=== PATIENT | male | born 1960 | race Caucasian/White ===

== ENCOUNTER 2019-11-04 10:50 | Inpatient (IN) | payer BC ==
--- NOTE | 2019-11-04 11:10 | PDOC ---
History of Present Illness - General Chief Complaint: Pain Stated Complaint: SENT BY PCP (KIDNEY STONES) History Source: Patient Exam Limitations: No Limitations - History of Present Illness Initial Comments: 11/04/19 11:11 59yM w PMHx kidney stone presenting w 3d subjective fevers, diaphoresis, nausea/vomiting, intermittent moderate LUQ radiating down LLQ pain. Took tylenol, last 8am this morning w/o relief. Had 5mm L lower pole stone broken w lithotripsy by Dr Fuentes 3d ago. Denies cough, chest pain, SOB, dysuria, hematuria, constipation, ABD distension Past History - Medical History Allergies/Adverse Reactions: Allergies Allergy/AdvReac Type Severity Reaction Status Date / Time No Known Drug Allergies Allergy Verified 11/04/19 11:01 shrimp Allergy Verified 11/04/19 11:01 Home Medications: Ambulatory Orders Amlodipine Besylate 10 mg PO DAILY 10/14/19 Aspirin 81 mg PO DAILY 10/14/19 Tamsulosin HCl [Flomax] 0.4 mg PO DAILY 10/14/19 Mirabegron [Myrbetriq] 50 mg PO DAILY 11/04/19 COPD: No Disorders: Yes (KIDNEY STONES) HTN: Yes - Surgical History Appendectomy: Yes (1980) - Psycho-Social/Smoking History Smoking History: Never smoked Have you smoked in the past 12 months: No Information on smoking cessation initiated: No - Substance Abuse Hx (Audit-C & DAST Scrn) How often the patient has a drink containing alcohol: Never Score: In Men: 4 or > Positive; In Women: 3 or > Positive: 0 Screen Result (Pos requires Nsg. Audit-10AR): Negative In the last yr the pt used illegal drug/Rx for NonMed reason: No Score: Yes response is considered Positive: 0 Screen Result (Positive result requires Nsg. DAST-10): Negative Review of Systems - Review of Systems Constitutional: Yes: Fever. No: Chills HEENTM: No: Eye Pain, Nose Pain Respiratory: No: Cough, Shortness of Breath Cardiac (ROS): No: Chest Pain, Lightheadedness ABD/GI: Yes: Nausea, Vomiting. No: Constipated, Diarrhea : Yes: Flank Pain. No: Burning, Dysuria Musculoskeletal: No: Back Pain, Joint Pain Integumentary: No: Bruising, Dryness Neurological: No: Headache, Seizure Psychiatric: No: Anxiety, Depression Endocrine: No: Intolerance to Cold, Intolerance to Heat Hematologic/Lymphatic: No: Anemia, Blood Clots *Physical Exam - Vital Signs Last Vital Signs Temp Pulse Resp BP Pulse Ox 98.9 F 107 H 18 130/72 100 11/04/19 10:58 11/04/19 10:58 11/04/19 10:58 11/04/19 10:58 11/04/19 10:58 - Physical Exam General Appearance: Yes: Nourished, Appropriately Dressed, Moderate Distress HEENT: positive: EOMI, ADRIA, Normal Voice, Hearing Grossly Normal. negative: Scleral Icterus (R), Scleral Icterus (L) Respiratory/Chest: positive: Lungs Clear, Normal Breath Sounds. negative: Chest Tender, Respiratory Distress Cardiovascular: positive: Regular Rhythm, Regular Rate, S1, S2. negative: Edema, Murmur Gastrointestinal/Abdominal: positive: Normal Bowel Sounds, Tender (mild LUQ/LLQ/L flank), Flat, Soft Musculoskeletal: negative: CVA Tenderness (R), CVA Tenderness (L) Integumentary: positive: Normal Color, Dry, Warm Neurologic: positive: Fully Oriented, Alert, Normal Mood/Affect, Normal Respo nse, Responsive ED Treatment Course - LABORATORY CBC & Chemistry Diagram: 11/04/19 12:00 11/04/19 12:00 Medical Decision Making - Medical Decision Making 11/04/19 11:57 CT A/P - large L renal subcapsular hematoma 4cm width mainly posterior w perinephric fat strainding, tiny nonobustructing L renal stones, mild dilation of L ureter w/o obstructing stone, mild thickening of partial distended bladder wall CXR - central congestive changes, cardiomegaly bedside echo - no appreciable L hydronephrosis, small L pleural effusion w bronchograms WBC 16 w L shift, 1+ hematuria --- 59yM w PMHx kidney stone presenting w 3d subjective fevers, diaphoresis, nausea/vomiting, intermittent moderate LUQ radiating down LLQ pain. CT showed 4cm L renal subcapsular hematoma/ fat stranding/leukocytosis w L shift - infection? vs post-op complication. Normal BP, no PATIENCE. No sign of obstructing stone on CT. Low concern for SBO (not distended) vs UTI (neg) vs pancreatitis (lipase wnl) Given 1L NS, 8mg morphine, zofran, toradol, zosyn Contacted Dr Fuentes urology - advised hematoma unlikely complication of lithotripsy, will evaluate pt in hospital Admitted m/s for renal hematoma, fat stranding, leukocytosis Discharge - Discharge Information Problems reviewed: Yes Clinical Impression/Diagnosis: Abdominal pain Qualifiers: Abdominal location: left lower quadrant Qualified Code(s): R10.32 - Left lower quadrant pain Renal hematoma Qualifiers: Encounter type: initial encounter Laterality: left Qualified Code(s): S37.012A - Minor contusion of left kidney, initial encounter Condition: Improved - Follow up/Referral Referrals: Earl Fuentes MD [Staff Physician] - - Patient Discharge Instructions Patient Printed Discharge Instructions: DI for Abdominal Pain-Adult Additional Instructions: Your CT scan shows that you have a small blood collection around your left kidney without stones or infection Take 1000mg tylenol or 600mg ibuprofen every 6 hours if you have pain Take the prescribed Percocet if you have severe pain Drink lots of water Follow up with your urologist Dr Fuentes tomorrow - Post Discharge Activity
[2019-11-04] MEDS ORDERED: ONDANSETRON 4 MG/2 ML VIAL IVPUSH ONE (11:43)
[2019-11-04] MEDS ORDERED: SODIUM CHLORIDE 0.9% 500 ML INFUS.BAG IV ONE (11:43)
[2019-11-04] MEDS ORDERED: morphine CARPU-JECT 4 MG/1 ML DISP.SYRIN IVPUSH ONE ×2 (11:43→17:10)
[2019-11-04] MEDS ORDERED: morphine SULFATE 4 MG/ML VIAL ONE ×2 (12:00→17:25)
[2019-11-04 12:15] LABS: BASO % 0.2 % (0-2.0); EOS % 0.1 % (0-4.5); HEMATOCRIT 33.8 % (35.4-49); HEMOGLOBIN 11.5 GM/dL (11.7-16.9); LYMPH % 4.6 % (8-40); MCH 29.8 pg (25.7-33.7); MCHC 34.1 g/dl (32.0-35.9); MEAN CELL VOLUME 87.2 fl (80-96); MEAN PLT VOLUME 9.1 fl (7.5-11.1); MONO % 6.9 % (3.8-10.2); NEUT % 88.2 % (42.8-82.8); PLATELET COUNT 185 K/MM3 (134-434); RBC 3.88 M/mm3 (4.00-5.60); RDW 13.6 % (11.9-15.9); WHITE BLOOD COUNT 16.1 K/mm3 (4.0-10.0)
[2019-11-04] MEDS ORDERED: KETOROLAC TROMETHAMINE 30 MG/1 ML VIAL IVPUSH ONE (12:15)
--- NOTE | 2019-11-04 12:19 | PDOC ---
Documentation entered by Serenity Nichole SCRIBE, acting as scribe for Orlando Gillette MD. Orlando Gillette MD: This documentation has been prepared by the zaidaibeDionisio Lincy, SCRIBE, under my direction and personally reviewed by me in its entirety. I confirm that the documentation accurately reflects all work, treatment, procedures, and medical decision making performed by me. Attending Attestation - Resident Resident Name: LindsaySarbjit - ED Attending Attestation I have performed the following: I have examined & evaluated the patient, The case was reviewed & discussed with the resident, I agree w/resident's findings & plan, Exceptions are as noted - HPI HPI: 11/04/19 12:10 The patient is a 59-year-old male with past medical history significant for htn, bph, Kidney stones, s/p lithotripsy (3 days ago w/ Dr. Fuentes) who presents to the emergency department with 3 days of subjective fever, chills, nausea / nbnb vomiting and left upper quadrant abdominal pain. The patient reports taking Tylenol for the symptoms, without relief. The patient reports following up with Dr. Fuentes 3 days ago. Denies cough, sore throat, chest pain, shortness of breath. Denies dysuria, or hematuria. - Physicial Exam PE: 11/04/19 12:17 GENERAL: The patient is awake, alert, and fully oriented, Nontoxic - in no acute distress. HEAD: Normocephalic, atraumatic. EYES: extraocular movements intact, sclera anicteric, conjunctiva clear. LUNGS: Breath sounds equal, clear to auscultation bilaterally. No wheezes, no rhonchi, no rales. HEART: Regular rate and rhythm, normal S1 and S2 without murmur, rub or gallop. ABDOMEN: Soft, right LLQ tenderness, No guarding, no rebound. No CVA tenderness EXTREMITIES: Normal range of motion, no edema. - Medical Decision Making 11/04/19 12:05 59y M hx of kidney stones sp lithotrypsy 3 days ago presents with subjective fevers, L flank pain without associated cp, dysuria. I suspect the patient may be passing his stones, will rule out UTI Will obtain CT to evaluate rule out Connor versus obstruction Fluids and analgesia for sx releief 11/04/19 14:[address] noted for a subcapsular hematoma of the left kidney with stranding which I suspect is the cause of his pain, will discuss with urology Blood work noted for a leukocytosis UA is not suggestive of UTI will give abx no hx of trauma/falls 11/04/19 16:56 due to persistent pain, will admit pt for further mangaement of his hematoma Discharge - Discharge Information Problems reviewed: Yes Clinical Impression/Diagnosis: Abdominal pain Qualifiers: Abdominal location: left lower quadrant Qualified Code(s): R10.32 - Left lower quadrant pain Renal hematoma Qualifiers: Encounter type: initial encounter Laterality: left Qualified Code(s): S37.012A - Minor contusion of left kidney, initial encounter Condition: Improved - Follow up/Referral - Patient Discharge Instructions - Post Discharge Activity
[2019-11-04 12:20] LABS: EPI CELLS 3 /uL (0-25.1); HYALINE CASTS 1 /uL (0-3.1); PH,URINE 6.5 (5.0-8.0); URINE APPEARANCE CLEAR; URINE BACTERIA 8 /uL (0-1359); URINE BILIRUBIN NEGATIVE (NEGATIVE); URINE COLOR YELLOW; URINE GLUCOSE (UA) NEGATIVE (NEGATIVE); URINE KETONE NEGATIVE (NEGATIVE); URINE LEUK ESTERASE TRACE (NEGATIVE); URINE NITRITE NEGATIVE (NEGATIVE); URINE PROTEIN TRACE (NEGATIVE); URINE RBC 55 /uL (0-23.9); URINE WBC 6 /uL (0-25.8)
[2019-11-04] MEDS ORDERED: KETOROLAC TROMETHAMINE 30 MG/1 ML VIAL ONE (12:50)
[2019-11-04 12:53] LABS: ALBUMIN 3.7 g/dl (3.4-5.0); BILIRUBIN,TOTAL 0.7 mg/dL (0.2-1); BLOOD UREA NITROGEN 16.4 mg/dL (7-18); CALCIUM 8.6 mg/dL (8.5-10.1); CREATININE 1.3 mg/dL (0.55-1.3); POTASSIUM 4.1 mmol/L (3.5-5.1)
[2019-11-04] MEDS ORDERED: PIPERACILLIN/TAZOB 4.5 GM 4.5 GM in DEXTROSE 5%-WATER 100 ML IVPB ONE (16:49)
[2019-11-04] MEDS ORDERED: PIPERACILLIN/TAZOB 4.5 GM 4.5 GM/100 ML BAG IVPB ONE (17:25)
[2019-11-04] MEDS ORDERED: ONDANSETRON 4 MG/2 ML VIAL IVPUSH PRN (18:21)
--- NOTE | 2019-11-04 18:30 | HP ---
CHIEF COMPLAINT: L flank/groin pain; vomiting PCP: HISTORY OF PRESENT ILLNESS: 59 y/0 male with PMH of Htn. kidney stones (s/p lithotripsy 3 days ago) presents to the ED with complaints of nausea/vomiting, fevers and left sided flank radiating into the groin pain. patient was found to have a L lower pole renal stone and underwent a lithotripsy 3 days ago- patient states since friday night he has been having immense pain (7-11/17), nausea/vomiting and fevers in addition to some pain on urination so he came to the ED. of note this is patients first time ever having kidney stones and he has no family history of stones. he denies any sick contacts, recent travel or changes in bowel habits ER course was notable for: (1)afebrile; HR 107 (2)wbc 16,1 (w/ left shift) Hgb 11.5 Cr 1.3 UA 1+ blood 55 RBC trace leuk esterase (3)CT ab/pelvis shows L renal subcapsualr hematoma with stranding of perinepric fat and some free fluid (4) given IVF, zosyn, toradol Recent Travel: denies PAST MEDICAL HISTORY: see above PAST SURGICAL HISTORY: appenix removed; Lithotripsy Social History: Smoking: Alcohol: Drugs: Allergies No Known Drug Allergies Allergy (Verified 11/04/19 11:01) shrimp Allergy (Verified 11/04/19 11:01) HOME MEDICATIONS: Home Medications Medication Instructions Recorded Amlodipine Besylate 10 mg PO DAILY 10/14/19 Aspirin 81 mg PO DAILY 10/14/19 Tamsulosin HCl [Flomax] 0.4 mg PO DAILY 10/14/19 Mirabegron [Myrbetriq] 50 mg PO DAILY 11/04/19 REVIEW OF SYSTEMS CONSTITUTIONAL: Absent: fever, chills, diaphoresis, generalized weakness, malaise, loss of appetite, weight change HEENT: Absent: rhinorrhea, nasal congestion, throat pain, throat swelling, difficulty swallowing, mouth swelling, ear pain, eye pain, visual changes CARDIOVASCULAR: Absent: chest pain, syncope, palpitations, irregular heart rate, lightheadedness, peripheral edema RESPIRATORY: Absent: cough, shortness of breath, dyspnea with exertion, orthopnea, wheezing, stridor, hemoptysis GASTROINTESTINAL: Absent: abdominal pain, abdominal distension, nausea, vomiting, diarrhea, constipation, melena, hematochezia GENITOURINARY: Present: dysuria, flank pain, groin pain Absent: , frequency, urgency, hesitancy, hematuria, , genital pain MUSCULOSKELETAL: Absent: myalgia, arthralgia, joint swelling, back pain, neck pain SKIN: Absent: rash, itching, pallor HEMATOLOGIC/IMMUNOLOGIC: Absent: easy bleeding, easy bruising, lymphadenopathy, frequent infections ENDOCRINE: Absent: unexplained weight gain, unexplained weight loss, heat intolerance, cold intolerance NEUROLOGIC: Absent: headache, focal weakness or paresthesias, dizziness, unsteady gait, seizure, mental status changes, bladder or bowel incontinence PSYCHIATRIC: Absent: anxiety, depression, suicidal or homicidal ideation, hallucinations. PHYSICAL EXAMINATION Vital Signs - 24 hr 11/04/19 10:58 Temperature 98.9 F Pulse Rate 107 H Respiratory 18 Rate Blood Pressure 130/72 O2 Sat by Pulse 100 Oximetry (%) GENERAL: Awake, alert, and fully oriented, in no acute distress. EYES: PEERLA: EOMI; no scleral icterus NECK: no JVD; no lymphadenopathy LUNGS: CTA B/l no rales, rhonchi or wheezing HEART: Regular rate and rhythm, normal S1 and S2 without murmur, rub or gallop. ABDOMEN: Soft, + L side/groin pain + guarding + BS in all 4 quadrants MUSCULOSKELETAL: NO CVA tenderness present EXTREMITIES: warm; well-perfused no clubbing/cyanosis or edema PSYCHIATRIC: Cooperative. Good eye contact. Appropriate mood and affect. SKIN: Warm, dry, normal turgor, no rashes or lesions noted, normal capillary refill. Laboratory Results - last 24 hr 11/04/19 11/04/19 11/04/19 12:00 12:00 12:00 WBC 16.1 H RBC 3.88 L Hgb 11.5 L Hct 33.8 L MCV 87.2 MCH 29.8 MCHC 34.1 RDW 13.6 Plt Count 185 MPV 9.1 Absolute Neuts (auto) 14.2 H Neutrophils % 88.2 H Lymphocytes % 4.6 L Monocytes % 6.9 Eosinophils % 0.1 Basophils % 0.2 Nucleated RBC % 0 Sodium 139 Potassium 4.1 Chloride 104 Carbon Dioxide 25 Anion Gap 10 BUN 16.4 Creatinine 1.3 Est GFR (CKD-EPI)AfAm 68.25 Est GFR (CKD-EPI)NonAf 58.89 Random Glucose 100 Calcium 8.6 Total Bilirubin 0.7 AST 15 ALT 24 Alkaline Phosphatase 45 Total Protein 7.0 Albumin 3.7 Lipase 120 Urine Color Yellow Urine Appearance Clear Urine pH 6.5 Ur Specific [place] 1.020 Urine Protein Trace Urine Glucose (UA) Negative Urine Ketones Negative Urine Blood 1+ H Urine Nitrite Negative Urine Bilirubin Negative Urine Urobilinogen 2.0 Ur Leukocyte Esterase Trace Urine WBC (Auto) 6 Urine RBC (Auto) 55 Urine Casts (Auto) 1 U Epithel Cells (Auto) 3 Urine Bacteria (Auto) 8 ASSESSMENT/PLAN: 59 y/0 male with PMH of Htn. kidney stones (s/p lithotripsy 3 days ago) presents to the ED with complaints of nausea/vomiting, fevers and left sided flank radiating into the groin pain found to have a L subcapsular hematoma on CT scan #Left Subcapsular hematoma CT scan shows L subcapsualr hemaotma w/ perinpehric stranding and free fluid -Dr Anthony Peters consulted -IV fluids -will cover broadly w/ vanc and zosyn -ID consult -nephro consult -zofran PRN for nausea -morphine PRN for pain -f/u blood and urine cx #HTN c/w amlodipine 10mg daily f/e/n NS @75 monitor electrolytes regular diet dvt ppx: scds in light of hematoma for now dispo: med-surg Family Medical History Family History: As Documented Family Hx Cancer: Grandmother (paternal), Father Visit type - Emergency Visit Emergency Visit: Yes Care time: The patient presented to the Emergency Department on the above date and was hospitalized for further evaluation of their emergent condition. - New Patient This patient is new to me today: Yes Date on this admission: 11/04/19 - Critical Care Critical Care patient: No ATTENDING PHYSICIAN STATEMENT I saw and evaluated the patient. I reviewed the resident's note and discussed the case with the resident. I agree with the resident's findings and plan as documented. SUBJECTIVE: OBJECTIVE: ASSESSMENT AND PLAN:
--- NOTE | 2019-11-04 18:36 | PN ---
Teaching Attending Note Name of Resident: Jimena Mcneil ATTENDING PHYSICIAN STATEMENT I saw and evaluated the patient. I reviewed the resident's note and discussed the case with the resident. I agree with the resident's findings and plan as documented. SUBJECTIVE: pt seen and examined OBJECTIVE: Last Vital Signs Temp Pulse Resp BP Pulse Ox 98.9 F 107 H 18 130/72 100 11/04/19 10:58 11/04/19 10:58 11/04/19 10:58 11/04/19 10:58 11/04/19 10:58 GENERAL: Awake, alert, and fully oriented, in no acute distress. HEAD: Normal with no signs of trauma. EYES: Pupils equal, round and reactive to light, sclera anicteric, conjunctiva clear. LUNGS: Breath sounds equal, clear to auscultation bilaterally. No wheezes, and no crackles. No accessory muscle use. HEART: Regular rate and rhythm, normal S1 and S2 ABDOMEN: guarded, tenderness on LUQ and lt lumbar area, with rebound, BS+ MUSCULOSKELETAL: Normal range of motion at all joints. No bony deformities or tenderness. No CVA tenderness. UPPER EXTREMITIES: 2+ pulses, warm, well-perfused. No cyanosis. No clubbing. No peripheral edema. LOWER EXTREMITIES: 2+ pulses, warm, well-perfused. No calf tenderness. No peripheral edema. NEUROLOGICAL: Cranial nerves II-XII intact. Normal speech. CBCD WBC 16.1 K/mm3 (4.0-10.0) H 11/04/19 12:00 RBC 3.88 M/mm3 (4.00-5.60) L 11/04/19 12:00 Hgb 11.5 GM/dL (11.7-16.9) L 11/04/19 12:00 Hct 33.8 % (35.4-49) L 11/04/19 12:00 MCV 87.2 fl (80-96) 11/04/19 12:00 MCHC 34.1 g/dl (32.0-35.9) 11/04/19 12:00 RDW 13.6 % (11.9-15.9) 11/04/19 12:00 Plt Count 185 K/MM3 (134-434) 11/04/19 12:00 MPV 9.1 fl (7.5-11.1) 11/04/19 12:00 CMP Sodium 139 mmol/L (136-145) 11/04/19 12:00 Potassium 4.1 mmol/L (3.5-5.1) 11/04/19 12:00 Chloride 104 mmol/L (98-107) 11/04/19 12:00 Carbon Dioxide 25 mmol/L (21-32) 11/04/19 12:00 Anion Gap 10 MMOL/L (8-16) 11/04/19 12:00 BUN 16.4 mg/dL (7-18) 11/04/19 12:00 Creatinine 1.3 mg/dL (0.55-1.3) 11/04/19 12:00 Calcium 8.6 mg/dL (8.5-10.1) 11/04/19 12:00 Total Bilirubin 0.7 mg/dL (0.2-1) 11/04/19 12:00 AST 15 U/L (15-37) 11/04/19 12:00 ALT 24 U/L (13-61) 11/04/19 12:00 Alkaline Phosphatase 45 U/L (45-117) 11/04/19 12:00 Total Protein 7.0 g/dl (6.4-8.2) 11/04/19 12:00 Albumin 3.7 g/dl (3.4-5.0) 11/04/19 12:00 ASSESSMENT AND PLAN: 59 year-old man with Mhx of htn, bph, Kidney stones, s/p lithotripsy (3 days ago w/ Dr. Fuentes) who presents to the emergency department with 3 days of subjective fever, chills, nausea / nbnb vomiting and left upper quadrant abdominal pain. # Lt Renal subcapsular hematoma, sepsis leukocytosis, tachycardia, meet sepsis criteria recent lithotripsy, pt improved after procedure, but started to have abdominal pain, N&V over last 2 days that got worse. CT scan lt renal subcapsular hematoma with stranding, non obstructing stones. Rt mid/distal ureter dilatation IV hydration, antiemtics, Zosyn+vancomycin trend H&H Urology consult Nephrology consult ID consult Anemia HTN BPH DVT prophylaxis
[2019-11-04] MEDS: VANCOMYCIN HCL 1,250 MG in DEXTROSE 5%-WATER - 250 ML IVPB SCH (19:51)
[2019-11-04] MEDS: SODIUM CHLORIDE 1,000 ML IV SCH (19:51)
[2019-11-05] MEDS ORDERED: ACETAMINOPHEN 325 MG TABLET (FP) PO ONE (00:32)
[2019-11-05] MEDS ORDERED: PIPERACILLIN/TAZOBACTAM 3.375 GM VIAL IVPB ONE ×3 (00:51→16:34)
[2019-11-05] MEDS ORDERED: DEXTROSE 5%-WATER - 50 ML IVPB ONE ×3 (00:51→16:34)
[2019-11-05] MEDS: MORPHINE SULFATE 2 MG/ML VIAL IVPUSH PRN ×2 (01:13→10:24)
[2019-11-05] MEDS: PIPERACILLIN/TAZOB 3.375 GM 3.375 GM in DEXTROSE 5%-WATER - 50 ML IVPB SCH ×2 (01:35→10:24)
[2019-11-05] MEDS ORDERED: PIPERACILLIN/TAZOB 3.375 GM 3.375 GM in DEXTROSE 5%-WATER - 50 ML IVPB SCH ×2 (02:00→18:00)
[2019-11-05] MEDS: SODIUM CHLORIDE 1,000 ML IV SCH (06:44)
[2019-11-05] MEDS: VANCOMYCIN HCL 1,250 MG in DEXTROSE 5%-WATER - 250 ML IVPB SCH ×2 (06:45→11:04)
--- NOTE | 2019-11-05 08:08 | CON.GU ---
Consult Consult Specialty:: urology - History of Present Illness Chief Complaint: subcapsular hematoma s/p left ESWL History of Present Illness: Patient is a 59 year old male s/p Left extracorporeal shockwave lithotripsy on Friday. The patient developed severe left renal colic with nausea and vomiting yesterday. The patient underwent a CT scan significant for a sucapsular hem atoma. No hydronephrosis was noted or uretera stones. The patient developed a fever last night and is on antibiotics. The patient was able to maintain a diet last night and denies nausea or vomiting currently. The patient is resting comfortably in bed.l - History Source History Provided By: Patient, Medical Record Limitations to Obtaining History: No Limitations - Smoking History Smoking history: Never smoked Have you smoked in the past 12 months: No Home Medications - Allergies Allergies/Adverse Reactions: Allergies Allergy/AdvReac Type Severity Reaction Status Date / Time No Known Drug Allergies Allergy Verified 11/04/19 11:01 shrimp Allergy Verified 11/04/19 11:01 - Home Medications Home Medications: Ambulatory Orders Amlodipine Besylate 10 mg PO DAILY 10/14/19 Aspirin 81 mg PO DAILY 10/14/19 Tamsulosin HCl [Flomax] 0.4 mg PO DAILY 10/14/19 Mirabegron [Myrbetriq] 50 mg PO DAILY 11/04/19 Family Medical History Family Hx Cancer: Grandmother (paternal), Father Physical Exam- Vital Signs: Vital Signs Temperature 100.1 F H 11/05/19 05:12 Pulse Rate 94 H 11/05/19 05:12 Respiratory Rate 11/05/19 05:12 Blood Pressure 143/73 11/05/19 05:12 O2 Sat by Pulse Oximetry (%) 93 L 11/05/19 05:12 Constitutional: Yes: Calm Eyes: Yes: WNL, Conjunctiva Clear, EOM Intact HENT: Yes: WNL, Atraumatic, Normocephalic Neck: Yes: WNL, Supple, Trachea Midline Cardiovascular: Yes: Regular Rate and Rhythm Respiratory: Yes: Regular Gastrointestinal: Yes: Soft Renal/: Yes: CVA Tenderness - Left Kidneys: Yes: Flank Pain Left Pelvis: Yes: WNL Testicles: Yes: WNL Scrotum: Yes: WNL Penis: Yes: WNL Prostate Exam: Yes: Deferred Musculoskeletal: Yes: WNL Extremities: Yes: WNL Integumentary: Yes: WNL Psychiatric: Yes: WNL Labs: CBC, BMP 11/04/19 12:00 11/04/19 12:00 Imaging - Results Cat Scan: Report Reviewed Assessment/Plan impression left subcapsular hematoma s/p left extrcorporeal schockwave lithotripsy plan continue antibiotics/pain management the hematoma is self limiting and will be observed at this time
[2019-11-05 09:31] LABS: BASO % 0.6 % (0-2.0); EOS % 0.1 % (0-4.5); HEMATOCRIT 30.6 % (35.4-49); HEMOGLOBIN 10.5 GM/dL (11.7-16.9); LYMPH % 12.6 % (8-40); MCH 30.1 pg (25.7-33.7); MCHC 34.3 g/dl (32.0-35.9); MEAN CELL VOLUME 87.7 fl (80-96); MEAN PLT VOLUME 9.3 fl (7.5-11.1); MONO % 7.8 % (3.8-10.2); NEUT % 78.9 % (42.8-82.8); PLATELET COUNT 177 K/MM3 (134-434); RBC 3.49 M/mm3 (4.00-5.60); RDW 13.6 % (11.9-15.9); WHITE BLOOD COUNT 15.7 K/mm3 (4.0-10.0)
[2019-11-05 09:36] LABS: INR 1.25 (0.83-1.09); PROTHROMBIN TIME (PATIENT) 14.8 SEC (9.7-13.0)
[2019-11-05 09:38] LABS: ACTIVATED PTT 28.1 SECONDS (25.2-36.5)
--- NOTE | 2019-11-05 09:47 | CONSULT ---
Consult Consult Specialty:: Nephrology Reason for Consultation:: PATIENCE - History of Present Illness Chief Complaint: flank pain History of Present Illness: Pt is a 59 year old male with pmhx of htn, nephrolithiasis and left extracorporeal shockwave lithotripsy on Friday who presents to the ER with left flank pain. 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 He was found to have a left subcapsular hematoma. He also had fevers and was started on abx. His renal function is improving with fluids. He still has flank pain. He denies fevers or chills. - History Source History Provided By: Patient, Medical Record - Past Medical History Cardio/Vascular: Yes: HTN - Smoking History Smoking history: Never smoked Have you smoked in the past 12 months: No Home Medications - Allergies Allergies/Adverse Reactions: Allergies Allergy/AdvReac Type Severity Reaction Status Date / Time No Known Drug Allergies Allergy Verified 11/04/19 11:01 shrimp Allergy Verified 11/04/19 11:01 - Home Medications Home Medications: Ambulatory Orders Amlodipine Besylate 10 mg PO DAILY 10/14/19 Aspirin 81 mg PO DAILY 10/14/19 Tamsulosin HCl [Flomax] 0.4 mg PO DAILY 10/14/19 Mirabegron [Myrbetriq] 50 mg PO DAILY 11/04/19 Family Medical History Family Hx Cancer: Grandmother (paternal), Father Review of Systems - Review of Systems Constitutional: reports: Loss of Appetite, Malaise Eyes: reports: No Symptoms HENT: reports: No Symptoms Neck: reports: No Symptoms Cardiovascular: reports: No Symptoms Respiratory: reports: No Symptoms Gastrointestinal: reports: No Symptoms Genitourinary: reports: Flank Pain Musculoskeletal: reports: No Symptoms Integumentary: reports: No Symptoms Neurological: reports: No Symptoms Endocrine: reports: No Symptoms Hematology/Lymphatic: reports: No Symptoms Psychiatric: reports: No Symptoms Physical Exam Vital Signs: Vital Signs Temperature 99.7 F H 11/05/19 09:00 Pulse Rate 113 H 11/05/19 09:00 Respiratory Rate 18 11/05/19 09:00 Blood Pressure 144/78 11/05/19 09:00 O2 Sat by Pulse Oximetry (%) 93 L 11/05/19 09:00 Constitutional: Yes: Calm Eyes: Yes: Conjunctiva Clear HENT: Yes: Atraumatic Neck: Yes: Supple Cardiovascular: Yes: S1, S2 Respiratory: Yes: CTA Bilaterally Gastrointestinal: Yes: Soft Renal/: Yes: CVA Tenderness - Left Musculoskeletal: Yes: WNL Edema: No Neurological: Yes: Oriented Psychiatric: Yes: Oriented Labs: CBC, BMP 11/05/19 07:52 Imaging - Results Cat Scan: Report Reviewed Problem List - Problems (1) Abdominal pain Code(s): R10.9 - UNSPECIFIED ABDOMINAL PAIN Qualifiers: Abdominal location: left lower quadrant Qualified Code(s): R10.32 - Left lower quadrant pain (2) Renal hematoma Code(s): S37.019A - MINOR CONTUSION OF UNSPECIFIED KIDNEY, INITIAL ENCOUNTER Qualifiers: Encounter type: initial encounter Laterality: left Qualified Code(s): S37.012A - Minor contusion of left kidney, initial encounter Assessment/Plan Current Medications Generic Name Dose Route Start Last Admin Trade Name Freq PRN Reason Stop Dose Admin Amlodipine Besylate 10 mg 11/05/19 10:00 Norvasc - PO DAILY DERICK Aspirin 81 mg 11/05/19 10:00 Asa - PO DAILY DERICK Sodium Chloride 1,000 mls @ 75 mls/hr 11/04/19 18:30 11/05/19 06:44 Normal Saline - IV 75 mls/hr ASDIR DERICK Administration Vancomycin HCl 1,250 mg/ 250 mls @ 250 mls/2 hr 11/04/19 18:24 Dextrose IVPB BID EDRICK Piperacillin Sod/Tazobactam 50 mls @ 100 mls/hr 11/05/19 02:00 Sod 3.375 gm/ Dextrose IVPB Q8H-IV DERICK Protocol Piperacillin Sod/Tazobactam 50 mls @ 100 mls/hr 11/05/19 02:00 11/05/19 01:35 Sod 3.375 gm/ Dextrose IVPB 11/05/19 18:29 100 mls/hr Q8H-IV DERICK Administration Protocol Morphine Sulfate 2 mg 11/04/19 18:21 11/05/19 01:13 Morphine Sulfate IVPUSH 2 mg Q6H PRN Administration PAIN LEVEL 4 - 6 Ondansetron HCl 4 mg 11/04/19 18:21 Zofran Injection IVPUSH Q6H PRN NAUSEA Laboratory Tests 08/05/10 11/04/19 11/04/19 16:40 12:00 12:00 Creatinine 0.8 1.3 Urine Blood 1+ H 11/05/19 07:52 Creatinine 1.1 Urine Blood Impression 1. patience improving 2. nephrolithiasis 3. left renal sub-capsular hematoma 4. fever Plan - called and discussed urology, recommend supportive care, IR is aware - monitor hg - pt going for another ct scan - pain control - renal function improving - monitor lytes - hold aspirin
[2019-11-05] MEDS ORDERED: amLODIPine BESYLATE 10 MG TABLET (FP) PO SCH (10:00)
[2019-11-05 10:12] LABS: ALBUMIN 3.1 g/dl (3.4-5.0); BILIRUBIN,TOTAL 1.1 mg/dL (0.2-1); BLOOD UREA NITROGEN 16.4 mg/dL (7-18); CALCIUM 8.1 mg/dL (8.5-10.1); CREATININE 1.1 mg/dL (0.55-1.3); MAGNESIUM 2.1 mg/dL (1.8-2.4); PHOSPHOROUS 2.2 mg/dL (2.5-4.9); POTASSIUM 3.7 mmol/L (3.5-5.1); TOT PROT 6.3 g/dl (6.4-8.2)
[2019-11-05] MEDS: ASPIRIN 81 MG CHEWABLE TABLETS PO SCH ×2 (10:24→11:09)
--- NOTE | 2019-11-05 10:40 | CON.ID ---
Consult Consult Specialty:: infectious diseases Referred by:: Reason for Consultation:: fever,abd pain - History of Present Illness Chief Complaint: abd pain,pain while passing urine History of Present Illness: 59 y/0 male with PMH of Htn. kidney stones (s/p lithotripsy 3 days ago) admitted with complaints of nausea/vomiting, fevers and left sided flank radiating into the groin pain. patient was found to have a L lower pole renal stone and underwent a lithotripsy 3 days ago- patient states since friday night he has b een having immense pain (), nausea/vomiting and fevers in addition to some pain on urination so he came to the ED. of note this is patients first time ever having kidney stones and he has no family history of stones. he denies any sick contacts, recent travel or changes in bowel habits patient was worked up and imaging done showing renal hematoma patient also mentions that he had some hematuria.He is very tender in the left abd - History Source History Provided By: Patient Limitations to Obtaining History: No Limitations - Smoking History Smoking history: Never smoked Have you smoked in the past 12 months: No Home Medications - Allergies Allergies/Adverse Reactions: Allergies Allergy/AdvReac Type Severity Reaction Status Date / Time No Known Drug Allergies Allergy Verified 11/04/19 11:01 shrimp Allergy Verified 11/04/19 11:01 - Home Medications Home Medications: Ambulatory Orders Amlodipine Besylate 10 mg PO DAILY 10/14/19 Aspirin 81 mg PO DAILY 10/14/19 Tamsulosin HCl [Flomax] 0.4 mg PO DAILY 10/14/19 Mirabegron [Myrbetriq] 50 mg PO DAILY 11/04/19 Family Medical History Family Hx Cancer: Grandmother (paternal), Father Review of Systems - Review of Systems Constitutional: reports: Fever, Other Eyes: reports: No Symptoms HENT: reports: No Symptoms Neck: reports: No Symptoms Cardiovascular: reports: No Symptoms Respiratory: reports: No Symptoms Gastrointestinal: reports: Abdominal Pain Genitourinary: reports: Hematuria Musculoskeletal: reports: No Symptoms Integumentary: reports: No Symptoms Neurological: reports: No Symptoms Endocrine: reports: No Symptoms Hematology/Lymphatic: reports: No Symptoms Psychiatric: reports: No Symptoms Physical Exam Vital Signs: Vital Signs Temperature 99.7 F H 11/05/19 09:00 Pulse Rate 113 H 11/05/19 09:00 Respiratory Rate 18 11/05/19 09:00 Blood Pressure 144/78 11/05/19 09:00 O2 Sat by Pulse Oximetry (%) 93 L 11/05/19 09:00 Constitutional: Yes: Calm, Mild Distress Eyes: Yes: Conjunctiva Clear HENT: Yes: Atraumatic, Normocephalic Neck: Yes: Supple, Trachea Midline Cardiovascular: Yes: Regular Rate and Rhythm Respiratory: Yes: Regular, CTA Bilaterally Gastrointestinal: Yes: Tenderness (left renal region), Other (distended) Musculoskeletal: Yes: WNL Extremities: Yes: WNL Neurological: Yes: Alert, Oriented Psychiatric: Yes: Alert, Oriented Labs: CBC, BMP 11/05/19 07:52 11/05/19 07:52 Imaging - Results Chest X-ray: Report Reviewed, Image Reviewed Cat Scan: Report Reviewed, Image Reviewed Assessment/Plan 59 y/0 male with PMH of Htn. kidney stones (s/p lithotripsy 3 days ago) presents to the ED with complaints of nausea/vomiting, fevers and left sided flank radiating into the groin pain found to have a L subcapsular hematoma on CT scan Left Subcapsular hematoma HTN leukocytosis fever plan will continue zosyn monitor hematoma closely will have to see for resolution rest as per the team
--- NOTE | 2019-11-05 11:03 | EKG ---
Test Reason : Blood Pressure : / mmHG Vent. Rate : 105 BPM Atrial Rate : 105 BPM P-R Int : 146 ms QRS Dur : 092 ms QT Int : 304 ms P-R-T Axes : 047 -12 053 degrees QTc Int : 401 ms SINUS TACHYCARDIA POSSIBLE LEFT ATRIAL ENLARGEMENT INCOMPLETE RIGHT BUNDLE BRANCH BLOCK WHEN COMPARED WITH ECG OF 05-AUG-2010 16:36, NO SIGNIFICANT CHANGE WAS FOUND Confirmed by JUANPABLO CHILDS MD ([id number]) on 11/05/2019 11:02:48 AM Referred By: Confirmed By:JUANPABLO CHILDS MD
[2019-11-05] MEDS ORDERED: MORPHINE SULFATE 2 MG/ML VIAL IVPUSH ONE (13:20)
[2019-11-05] MEDS ORDERED: NAPH,MB-DB/K PH,MBDB POWDER PACKET PO ONE (14:00)
[2019-11-05] MEDS ORDERED: FUROSEMIDE 40 MG/4 ML INJECTABLE VIAL IVPUSH ONE (14:01)
[2019-11-05] MEDS ORDERED: amLODIPine BESYLATE 5 MG TABLET (FP) PO SCH (14:03)
[2019-11-05] MEDS ORDERED: HYDROmorphone HCl 2 MG/ML VIAL IVPB ONE (14:21)
[2019-11-05] MEDS ORDERED: ACETAMINOPHEN 1000 MG/100 ML VIAL (NON FORMULARY) IVPB PRN (14:22)
--- NOTE | 2019-11-05 17:41 | PN ---
Physical Exam: SUBJECTIVE: Patient seen and examined at bedside, c/o severe L flank pain, slight drop in H/H, will obtain new set of labs, re-scan for expanding hematoma?, consult ICU for further management and monitoring. OBJECTIVE: Vital Signs Period Temp Pulse Resp BP Sys/Dutta Pulse Ox Last 24 Hr 99.7 F-102.5 F 92-117 18-20 127-144/52-78 86-97 GENERAL: Awake, alert, and fully oriented, severe distress EYES: PEERLA: EOMI; no scleral icterus NECK: no JVD; no lymphadenopathy LUNGS: poor inspiratory effort due to pain HEART: Sinus tachycardia, S1, S2+ ABDOMEN: L flank pain w/ guarding, R flank unremarkable, BS+, slightly distended MUSCULOSKELETAL: NO CVA tenderness present EXTREMITIES: warm; well-perfused no clubbing/cyanosis or edema PSYCHIATRIC: Cooperative. Good eye contact. Appropriate mood and affect. SKIN: Warm, dry, normal turgor, no rashes or lesions noted, normal capillary refill. Laboratory Results - last 24 hr 11/04/19 11/05/19 11/05/19 12:11 07:52 07:52 WBC 15.7 H RBC 3.49 L Hgb 10.5 L Hct 30.6 L MCV 87.7 MCH 30.1 MCHC 34.3 RDW 13.6 Plt Count 177 MPV 9.3 Absolute Neuts (auto) 12.4 H Neutrophils % 78.9 Lymphocytes % 12.6 D Monocytes % 7.8 Eosinophils % 0.1 Basophils % 0.6 Nucleated RBC % 0 PT with INR 14.80 H INR 1.25 H PTT (Actin FS) 28.1 Sodium Potassium Chloride Carbon Dioxide Anion Gap BUN Creatinine Est GFR (CKD-EPI)AfAm Est GFR (CKD-EPI)NonAf Random Glucose Calcium Phosphorus Magnesium Total Bilirubin AST ALT Alkaline Phosphatase B-Natriuretic Peptide Total Protein Albumin Blood Type B POSITIVE 11/05/19 11/05/19 07:52 15:30 WBC RBC Hgb Hct MCV MCH MCHC RDW Plt Count MPV Absolute Neuts (auto) Neutrophils % Lymphocytes % Monocytes % Eosinophils % Basophils % Nucleated RBC % PT with INR INR PTT (Actin FS) Sodium 138 Potassium 3.7 Chloride 105 Carbon Dioxide 25 Anion Gap 8 BUN 16.4 Creatinine 1.1 Est GFR (CKD-EPI)AfAm 83.53 Est GFR (CKD-EPI)NonAf 72.07 Random Glucose 115 H Calcium 8.1 L Phosphorus 2.2 L Magnesium 2.1 Total Bilirubin 1.1 H AST 15 ALT 26 Alkaline Phosphatase 39 L B-Natriuretic Peptide 439.2 H Total Protein 6.3 L Albumin 3.1 L Blood Type Active Medications Generic Name Dose Route Start Last Admin Trade Name Freq PRN Reason Stop Dose Admin Acetaminophen 1,000 mg 11/05/19 14:22 11/05/19 14:46 Ofirmev Injection - IVPB 11/06/19 14:22 1,000 mg Q6H PRN Administration FEVER Amlodipine Besylate 5 mg 11/05/19 14:03 Norvasc - PO DAILY [facility] Chlorhexidine Gluconate 1 applic 11/05/19 22:00 Hibiclens For Decolonization - TP [facility] Piperacillin Sod/Tazobactam 50 mls @ 100 mls/hr 11/05/19 18:00 11/05/19 17:11 Sod 3.375 gm/ Dextrose IVPB 100 mls/hr Q8H-IV [facility] Administration Protocol Morphine Sulfate 2 mg 11/04/19 18:21 11/05/19 10:24 Morphine Sulfate IVPUSH 2 mg Q6H PRN Administration PAIN LEVEL 4 - 6 Mupirocin 1 applic 11/05/19 22:00 Bactroban Ointment (For Decolonization) - NS 11/10/19 21:59 BID [facility] Ondansetron HCl 4 mg 11/04/19 18:21 Zofran Injection IVPUSH Q6H PRN NAUSEA Tamsulosin HCl 0.4 mg 11/06/19 08:30 Flomax - PO DAILY@0830 [facility] ASSESSMENT/PLAN: 59 M L nephrolithiasis s/p ESWL L subcapsular hematoma following ESWL Suspected L pyelonephritis HTN R/o expanding hematoma Sepsis Plan: Cont. Zosyn for urosepsis Place castro for retention Spoke to Dr. Simon for hematoma drainage, not advised d/t risk for further bleeding Re-scan abdomen Avoid blood thinners, give 1u FFP due to ?ASA use at home ICU consult for transfer Urology following Chem/CBC Q12H, serial abdominal exams/close monitoring NC O2 to titrate >92%, control pain, incentive spirometry, 1 dose of Lasix to help oxygenation DVT ppx: SCD Visit type - Emergency Visit Emergency Visit: Yes ED Registration Date: 11/04/19 Care time: The patient presented to the Emergency Department on the above date and was hospitalized for further evaluation of their emergent condition. - New Patient This patient is new to me today: Yes Date on this admission: 11/05/19 - Critical Care Critical Care patient: Yes Total Critical Care Time (in minutes): 45 Critical Care Statement: The care of this patient involved high complexity decision making to prevent further life threatening deterioration of the patient's condition and/or to evaluate & treat vital organ system(s) failure or risk of failure. - Discharge Referral Referred to [facility] No
[2019-11-05 18:56] LABS: HEMATOCRIT 31.7 % (35.4-49); HEMOGLOBIN 10.6 GM/dL (11.7-16.9); MCH 29.5 pg (25.7-33.7); MCHC 33.5 g/dl (32.0-35.9); MEAN CELL VOLUME 88.1 fl (80-96); PLATELET COUNT 184 K/MM3 (134-434); RBC 3.59 M/mm3 (4.00-5.60); RDW 13.6 % (11.9-15.9); WHITE BLOOD COUNT 15.8 K/mm3 (4.0-10.0)
--- NOTE | 2019-11-05 19:03 | CONSULT ---
Consultation: REQUESTING PROVIDER: Dr. Hernández CONSULT REQUEST: We have been asked to medically evaluate this patient for ICU placement HISTORY OF PRESENT ILLNESS: REVIEW OF SYSTEMS: CONSTITUTIONAL: fever, chills Absent: diaphoresis, generalized weakness, malaise, loss of appetite, weight change HEENT: Absent: rhinorrhea, nasal congestion, throat pain, throat swelling, difficulty swallowing, mouth swelling, ear pain, eye pain, visual changes CARDIOVASCULAR: Absent: chest pain, syncope, palpitations, irregular heart rate, lightheadedness, peripheral edema RESPIRATORY: SOB Absent: cough, dyspnea with exertion, orthopnea, wheezing, stridor, hemoptysis GASTROINTESTINAL: Abdominal pain with n/v Absent: abdominal distension, diarrhea, constipation, melena, hematochezia GENITOURINARY: Left flank pain Absent: dysuria, frequency, urgency, hesitancy, hematuria, genital pain MUSCULOSKELETAL: Absent: myalgia, arthralgia, joint swelling, back pain, neck pain SKIN: Absent: rash, itching, pallor HEMATOLOGIC/IMMUNOLOGIC: Absent: easy bleeding, easy bruising, lymphadenopathy, frequent infections ENDOCRINE: Absent: unexplained weight gain, unexplained weight loss, heat intolerance, cold intolerance NEUROLOGIC: Absent: headache, focal weakness or paresthesias, dizziness, unsteady gait, seizure, mental status changes, bladder or bowel incontinence PSYCHIATRIC: Absent: anxiety, depression, suicidal or homicidal ideation, hallucinations. PHYSICAL EXAMINATION Vital Signs - 24 hr 11/04/19 11/05/19 11/05/19 19:51 00:15 00:41 Temperature 102.5 F H Pulse Rate 108 H Pulse Rate [ 92 H Left Radial] Respiratory 18 20 Rate Blood Pressure 138/77 Blood Pressure 129/70 [Right Arm] O2 Sat by Pulse 96 92 L 92 L Oximetry (%) 11/05/19 11/05/19 11/05/19 02:00 05:12 09:00 Temperature 100.3 F H 100.1 F H 99.7 F H Pulse Rate 107 H 94 H 113 H Pulse Rate [ Left Radial] Respiratory 20 20 18 Rate Blood Pressure 134/52 L 143/73 144/78 Blood Pressure [Right Arm] O2 Sat by Pulse 95 93 L 93 L Oximetry (%) 11/05/19 11/05/19 11/05/19 10:00 13:52 15:54 Temperature 102.3 F H 101.0 F H Pulse Rate 117 H 97 H Pulse Rate [ Left Radial] Respiratory 18 18 Rate Blood Pressure 136/73 127/71 Blood Pressure [Right Arm] O2 Sat by Pulse 93 L 86 L 97 Oximetry (%) 11/05/19 18:00 Temperature 100.7 F H Pulse Rate 91 H Pulse Rate [ Left Radial] Respiratory 18 Rate Blood Pressure 138/69 Blood Pressure [Right Arm] O2 Sat by Pulse 98 Oximetry (%) GENERAL: Awake, alert, and fully oriented, in no acute distress. HEAD: Normal with no signs of trauma. EYES: PERRL ENT: Moist mucous membranes. NECK: supple, no JVD LUNGS: CTA BL HEART: Tachycardic ABDOMEN: Tender to palpation over L upper and lower quadrant with guarding. No tenderness on right side MUSCULOSKELETAL: + L sided CVA tenderness EXTREMITIES: Warm, well-perfused. No cyanosis. No peripheral edema. NEUROLOGICAL: Cranial nerves II-XII intact. Normal speech. PSYCHIATRIC: Cooperative. Good eye contact. Appropriate mood and affect. SKIN: Warm, dry, normal turgor, no rashes or lesions noted. Laboratory Results - last 24 hr 11/04/19 11/05/19 11/05/19 12:11 07:52 07:52 WBC 15.7 H RBC 3.49 L Hgb 10.5 L Hct 30.6 L MCV 87.7 MCH 30.1 MCHC 34.3 RDW 13.6 Plt Count 177 MPV 9.3 Absolute Neuts (auto) 12.4 H Neutrophils % 78.9 Lymphocytes % 12.6 D Monocytes % 7.8 Eosinophils % 0.1 Basophils % 0.6 Nucleated RBC % 0 PT with INR 14.80 H INR 1.25 H PTT (Actin FS) 28.1 Sodium Potassium Chloride Carbon Dioxide Anion Gap BUN Creatinine Est GFR (CKD-EPI)AfAm Est GFR (CKD-EPI)NonAf Random Glucose Calcium Phosphorus Magnesium Total Bilirubin AST ALT Alkaline Phosphatase B-Natriuretic Peptide Total Protein Albumin Blood Type B POSITIVE 11/05/19 11/05/19 07:52 15:30 WBC RBC Hgb Hct MCV MCH MCHC RDW Plt Count MPV Absolute Neuts (auto) Neutrophils % Lymphocytes % Monocytes % Eosinophils % Basophils % Nucleated RBC % PT with INR INR PTT (Actin FS) Sodium 138 Potassium 3.7 Chloride 105 Carbon Dioxide 25 Anion Gap 8 BUN 16.4 Creatinine 1.1 Est GFR (CKD-EPI)AfAm 83.53 Est GFR (CKD-EPI)NonAf 72.07 Random Glucose 115 H Calcium 8.1 L Phosphorus 2.2 L Magnesium 2.1 Total Bilirubin 1.1 H AST 15 ALT 26 Alkaline Phosphatase 39 L B-Natriuretic Peptide 439.2 H Total Protein 6.3 L Albumin 3.1 L Blood Type Active Medications Generic Name Dose Route Start Last Admin Trade Name Freq PRN Reason Stop Dose Admin Acetaminophen 1,000 mg 11/05/19 14:22 11/05/19 14:46 Ofirmev Injection - IVPB 11/06/19 14:22 1,000 mg Q6H PRN Administration FEVER Amlodipine Besylate 5 mg 11/05/19 14:03 Norvasc - PO DAILY [facility] Chlorhexidine Gluconate 1 applic 11/05/19 22:00 Hibiclens For Decolonization - TP [facility] Piperacillin Sod/Tazobactam 50 mls @ 100 mls/hr 11/05/19 18:00 11/05/19 17:11 Sod 3.375 gm/ Dextrose IVPB 100 mls/hr Q8H-IV [facility] Administration Protocol Morphine Sulfate 2 mg 11/04/19 18:21 11/05/19 10:24 Morphine Sulfate IVPUSH 2 mg Q6H PRN Administration PAIN LEVEL 4 - 6 Mupirocin 1 applic 11/05/19 22:00 Bactroban Ointment (For Decolonization) - NS 11/10/19 21:59 BID [facility] Ondansetron HCl 4 mg 11/04/19 18:21 Zofran Injection IVPUSH Q6H PRN NAUSEA Tamsulosin HCl 0.4 mg 11/06/19 08:30 Flomax - PO DAILY@0830 [facility] ASSESSMENT/PLAN: 59 yo male with PMHx of HTN, kidney stones (s/p lithotripsy 3 days ago) who presents to the ED with complaints of nausea/vomiting, fevers and left sided flank pain radiating into the groin. Found to have a L subcapsular hematoma on CT scan. Left Subcapsular hematoma - patient presenting with fevers, severe abdominal pain and SOB - on Zosyn - monitor renal function, nephrology on board (Dr. Fuentes) - monitor hematoma, no changes on last CT Dispo: Patient will be transferred to ICU for further management and monitoring. We will continue to follow the patient. Thank you for this consultative opportunity. Visit type - Emergency Visit Emergency Visit: Yes ED Registration Date: 11/04/19 Care time: The patient presented to the Emergency Department on the above date and was hospitalized for further evaluation of their emergent condition. - New Patient This patient is new to me today: No - Critical Care Critical Care patient: Yes Total Critical Care Time (in minutes): 37 Critical Care Statement: The care of this patient involved high complexity decision making to prevent further life threatening deterioration of the patient's condition and/or to evaluate & treat vital organ system(s) failure or risk of failure. ATTENDING PHYSICIAN STATEMENT I saw and evaluated the patient. I reviewed the resident's note and discussed the case with the resident. I agree with the resident's findings and plan as documented. SUBJECTIVE: OBJECTIVE: ASSESSMENT AND PLAN:
[2019-11-05] MEDS ORDERED: MORPHINE SULFATE 2 MG/ML VIAL IVPUSH PRN (19:11)
[2019-11-05] MEDS ORDERED: ONDANSETRON 4 MG/2 ML VIAL IVPUSH PRN (19:11)
[2019-11-05 19:19] LABS: ALBUMIN 3.1 g/dl (3.4-5.0); BILIRUBIN,TOTAL 1.4 mg/dL (0.2-1); CALCIUM 8.3 mg/dL (8.5-10.1); CREATININE 1.3 mg/dL (0.55-1.3); POTASSIUM 3.8 mmol/L (3.5-5.1); TOT PROT 6.3 g/dl (6.4-8.2)
[2019-11-05] MEDS: ACETAMINOPHEN 1000 MG/100 ML VIAL (NON FORMULARY) IVPB PRN (19:40)
[2019-11-05] MEDS ORDERED: CHLORHEXIDINE GLUCONATE 4% CLEANSER FOR DECOLONIZATION TP SCH (22:00)
[2019-11-05] MEDS: MUPIROCIN 2% TOPICAL OINTMENT FOR DECOLONIZATION NS SCH (22:23)
[2019-11-06] MEDS ORDERED: DEXTROSE 5%-WATER - 50 ML IVPB ONE ×3 (01:10→17:25)
[2019-11-06] MEDS ORDERED: PIPERACILLIN/TAZOBACTAM 3.375 GM VIAL IVPB ONE ×3 (01:10→17:25)
[2019-11-06] MEDS: PIPERACILLIN/TAZOB 3.375 GM 3.375 GM in DEXTROSE 5%-WATER - 50 ML IVPB SCH ×3 (01:14→17:44)
[2019-11-06] MEDS: ACETAMINOPHEN 1000 MG/100 ML VIAL (NON FORMULARY) IVPB PRN ×2 (01:31→09:44)
[2019-11-06 08:11] LABS: HEMOGLOBIN 9.8 GM/dL (11.7-16.9); MCH 29.8 pg (25.7-33.7); MCHC 33.7 g/dl (32.0-35.9); MEAN CELL VOLUME 88.5 fl (80-96); MEAN PLT VOLUME 8.9 fl (7.5-11.1); PLATELET COUNT 182 K/MM3 (134-434); RBC 3.27 M/mm3 (4.00-5.60); RDW 13.4 % (11.9-15.9); WHITE BLOOD COUNT 14.7 K/mm3 (4.0-10.0)
[2019-11-06 08:17] LABS: ALBUMIN 2.9 g/dl (3.4-5.0); BILIRUBIN,TOTAL 1.4 mg/dL (0.2-1); BLOOD UREA NITROGEN 19.9 mg/dL (7-18); CALCIUM 8.3 mg/dL (8.5-10.1); CREATININE 1.3 mg/dL (0.55-1.3); MAGNESIUM 2.4 mg/dL (1.8-2.4); PHOSPHOROUS 3.8 mg/dL (2.5-4.9); POTASSIUM 3.9 mmol/L (3.5-5.1); TOT PROT 6.2 g/dl (6.4-8.2)
[2019-11-06] MEDS ORDERED: TAMSULOSIN HCL 0.4 MG CAP PO SCH ×2 (08:30)
--- NOTE | 2019-11-06 09:06 | CONSULT ---
Consult - text type - Consultation Consultation Note: CC: left subcapsular hematoma s/p left ESWL HPI: Patient is a 59 year old male with history of left ESWL who developed a sucapsular hematoma and fever with severe left flank pain accompanied by nausea and vomiting. The patient had a follow-up CT scan which shows that the hematoma is not expanding. The patient notes mild improvement in his pain and has been able to maintain a diet. Urine is clear PE Tmax 100.2/T 99.0 VSS abd-moderate left CVAT gentila- nl phallus testes CT scan and labs reviewed impression left subcapsular hematoma s/p left eswl plan continue antibiotics follow hct pain management
[2019-11-06] MEDS: MUPIROCIN 2% TOPICAL OINTMENT FOR DECOLONIZATION NS SCH (09:30)
[2019-11-06] MEDS ORDERED: amLODIPine BESYLATE 5 MG TABLET (FP) PO SCH (10:00)
--- NOTE | 2019-11-06 10:28 | PN ---
Progress Note (short form) - Note Progress Note: RENAL Pt is awake and alert c/o dryness of eyes and left lower quadrant pain says he had an eswl friday and started having pain on and came to hospital Last Vital Signs Temp Pulse Resp BP Pulse Ox 97.0 F L 94 H 18 119/67 96 11/06/19 10:00 11/06/19 10:00 11/06/19 10:00 11/06/19 10:00 11/06/19 10:00 lungs clear cvs s1s2 rr abd soft, has left lower quadrant tenderness ext no edema neuro a+ox3 CBC, BMP 11/06/19 06:56 11/06/19 06:56 Current Medications Generic Name Dose Route Start Last Admin Trade Name Freq PRN Reason Stop Dose Admin Acetaminophen 1,000 mg 11/05/19 19:11 11/06/19 09:44 Ofirmev Injection - IVPB 11/06/19 14:22 1,000 mg Q6H PRN Administration FEVER Amlodipine Besylate 5 mg 11/06/19 10:00 11/06/19 09:30 Norvasc - PO 5 mg DAILY [facility] Administration Chlorhexidine Gluconate 1 applic 11/05/19 22:00 11/05/19 22:22 Hibiclens For Decolonization - TP 1 applic HS [facility] Administration Piperacillin Sod/Tazobactam 50 mls @ 100 mls/hr 11/06/19 02:00 11/06/19 09:30 Sod 3.375 gm/ Dextrose IVPB 100 mls/hr Q8H-IV [facility] Administration Protocol Morphine Sulfate 2 mg 11/05/19 19:11 Morphine Sulfate IVPUSH Q6H PRN PAIN LEVEL 4 - 6 Mupirocin 1 applic 11/05/19 22:00 11/06/19 09:30 Bactroban Ointment (For Decolonization) - NS 11/10/19 21:59 1 applic BID [facility] Administration Ondansetron HCl 4 mg 11/05/19 19:11 11/05/19 19:50 Zofran Injection IVPUSH 4 mg Q6H PRN Administration NAUSEA Tamsulosin HCl 0.4 mg 11/06/19 08:30 11/06/19 08:41 Flomax - PO 0.4 mg DAILY@0830 [facility] Administration Impression 1. shameka improving 2. nephrolithiasis 3. left renal sub-capsular hematoma 4. fever Plan conservative management unless he becomes hemodynamically unstable Page Kidney can be a result of large subcapsular hematoma- may need drainage would consider ddavp if its though he has persistent bleeding MV
--- NOTE | 2019-11-06 10:50 | PN ---
Teaching Attending Note Name of Resident: Luc Fischer ATTENDING PHYSICIAN STATEMENT I saw and evaluated the patient. I reviewed the resident's note and discussed the case with the resident. I agree with the resident's findings and plan as documented. SUBJECTIVE: Pt seen and examined in the ICU. Pain better controlled. H/H stable, CT A/P showing unchanged hematoma. OBJECTIVE: Vital Signs Period Temp Pulse Resp BP Sys/Dutta Pulse Ox Last 24 Hr 97.0 F-102.3 F 73-117 14-18 110-138/64-73 86-100 Intake & Output 11/03/19 11/04/19 11/05/19 11/06/19 23:59 23:59 23:59 23:59 Intake Total 1950 500 Output Total 2050 300 Balance -100 200 Weight 75.296 kg 527.982 kg Gen: NAD at rest Heart: RRR Lung: decreased breath sounds at the bases Abd: soft, mild TTP LLQ Ext: no edema CBC, BMP 11/06/19 06:56 11/06/19 06:56 Active Medications Acetaminophen (Ofirmev Injection -) 1,000 mg IVPB Q6H PRN PRN Reason: FEVER Stop: 11/06/19 14:22 Last Admin: 11/06/19 09:44 Dose: 1,000 mg Documented by: Amlodipine Besylate (Norvasc -) 5 mg PO DAILY [facility] Last Admin: 11/06/19 09:30 Dose: 5 mg Documented by: Chlorhexidine Gluconate (Hibiclens For Decolonization -) 1 applic TP HS [facility] Last Admin: 11/05/19 22:22 Dose: 1 applic Documented by: Piperacillin Sod/Tazobactam (Sod 3.375 gm/ Dextrose) 50 mls @ 100 mls/hr IVPB Q8H-IV [facility]ER[facility]; Protocol Last Admin: 11/06/19 09:30 Dose: 100 mls/hr Documented by: Morphine Sulfate (Morphine Sulfate) 2 mg IVPUSH Q6H PRN PRN Reason: PAIN LEVEL 4 - 6 Mupirocin (Bactroban Ointment (For Decolonization) -) 1 applic NS BID [facility] Stop: 11/10/19 21:59 Last Admin: 11/06/19 09:30 Dose: 1 applic Documented by: Ondansetron HCl (Zofran Injection) 4 mg IVPUSH Q6H PRN PRN Reason: NAUSEA Last Admin: 11/05/19 19:50 Dose: 4 mg Documented by: Tamsulosin HCl (Flomax -) 0.4 mg PO DAILY@0830 [facility] Last Admin: 11/06/19 08:41 Dose: 0.4 mg Documented by: ASSESSMENT AND PLAN: Left Nephrolithiasis s/p Recent L ESWL Left Renal Subcapsular Hematoma HTN - pain control - antibiotics per ID - f/u cultures - PO as tolerated - DVT prophylaxis - can monitor on floor
--- NOTE | 2019-11-06 12:50 | PN ---
Progress Note, Physician History of Present Illness: Pt seen in ICU. Reports less pain. Low grade fevers, overall downward trend. Urinating freely without hematuria. - Current Medication List Current Medications: Active Medications Acetaminophen (Ofirmev Injection -) 1,000 mg IVPB Q6H PRN PRN Reason: FEVER Stop: 11/06/19 14:22 Last Admin: 11/06/19 09:44 Dose: 1,000 mg Documented by: Amlodipine Besylate (Norvasc -) 5 mg PO DAILY [facility] Last Admin: 11/06/19 09:30 Dose: 5 mg Documented by: Chlorhexidine Gluconate (Hibiclens For Decolonization -) 1 applic TP HS [facility] Last Admin: 11/05/19 22:22 Dose: 1 applic Documented by: Piperacillin Sod/Tazobactam (Sod 3.375 gm/ Dextrose) 50 mls @ 100 mls/hr IVPB Q8H-IV DERICK; Protocol Last Admin: 11/06/19 09:30 Dose: 100 mls/hr Documented by: Morphine Sulfate (Morphine Sulfate) 2 mg IVPUSH Q6H PRN PRN Reason: PAIN LEVEL 4 - 6 Mupirocin (Bactroban Ointment (For Decolonization) -) 1 applic NS BID [facility] Stop: 11/10/19 21:59 Last Admin: 11/06/19 09:30 Dose: 1 applic Documented by: Ondansetron HCl (Zofran Injection) 4 mg IVPUSH Q6H PRN PRN Reason: NAUSEA Last Admin: 11/05/19 19:50 Dose: 4 mg Documented by: Tamsulosin HCl (Flomax -) 0.4 mg PO DAILY@0830 [facility] Last Admin: 11/06/19 08:41 Dose: 0.4 mg Documented by: - Objective Vital Signs: Vital Signs Temperature 100.7 F H 11/06/19 10:00 Pulse Rate 85 11/06/19 12:00 Respiratory Rate 14 11/06/19 12:00 Blood Pressure 113/64 11/06/19 12:00 O2 Sat by Pulse Oximetry (%) 98 11/06/19 12:00 Constitutional: Yes: No Distress, Calm Cardiovascular: Yes: Regular Rate and Rhythm Respiratory: Yes: Regular Gastrointestinal: Yes: Normal Bowel Sounds, Soft, Tenderness (Lt side pain down to Lt groin region) Genitourinary: Yes: CVA Tenderness - Left Extremities: Yes: WNL Integumentary: Yes: WNL Neurological: Yes: Alert, Oriented Labs: CBC, BMP 11/06/19 06:56 11/06/19 06:56 INR, PTT INR 1.25 (0.83-1.09) H 11/05/19 07:52 Laboratory Last Values WBC 14.7 K/mm3 (4.0-10.0) H 11/06/19 06:56 RBC 3.27 M/mm3 (4.00-5.60) L 11/06/19 06:56 Hgb 9.8 GM/dL (11.7-16.9) L 11/06/19 06:56 Hct 29.0 % (35.4-49) L 11/06/19 06:56 MCV 88.5 fl (80-96) 11/06/19 06:56 MCH 29.8 pg (25.7-33.7) 11/06/19 06:56 MCHC 33.7 g/dl (32.0-35.9) 11/06/19 06:56 RDW 13.4 % (11.9-15.9) 11/06/19 06:56 Plt Count 182 K/MM3 (134-434) 11/06/19 06:56 MPV 8.9 fl (7.5-11.1) 11/06/19 06:56 Absolute Neuts (auto) 12.4 K/mm3 (1.5-8.0) H 11/05/19 07:52 Neutrophils % 78.9 % (42.8-82.8) 11/05/19 07:52 Lymphocytes % 12.6 % (8-40) D 11/05/19 07:52 Monocytes % 7.8 % (3.8-10.2) 11/05/19 07:52 Eosinophils % 0.1 % (0-4.5) 11/05/19 07:52 Basophils % 0.6 % (0-2.0) 11/05/19 07:52 Nucleated RBC % 0 % (0-0) 11/05/19 07:52 PT with INR 14.80 SEC (9.7-13.0) H 11/05/19 07:52 INR 1.25 (0.83-1.09) H 11/05/19 07:52 PTT (Actin FS) 28.1 SECONDS (25.2-36.5) 11/05/19 07:52 Sodium 137 mmol/L (136-145) 11/06/19 06:56 Potassium 3.9 mmol/L (3.5-5.1) 11/06/19 06:56 Chloride 102 mmol/L (98-107) 11/06/19 06:56 Carbon Dioxide 29 mmol/L (21-32) 11/06/19 06:56 Anion Gap 7 MMOL/L (8-16) L 11/06/19 06:56 BUN 19.9 mg/dL (7-18) H 11/06/19 06:56 Creatinine 1.3 mg/dL (0.55-1.3) 11/06/19 06:56 Est GFR (CKD-EPI)AfAm 68.25 11/06/19 06:56 Est GFR (CKD-EPI)NonAf 58.89 11/06/19 06:56 Random Glucose 93 mg/dL (74-106) 11/06/19 06:56 Lactic Acid 0.9 mmol/L (0.4-2.0) 11/05/19 17:50 Calcium 8.3 mg/dL (8.5-10.1) L 11/06/19 06:56 Phosphorus 3.8 mg/dL (2.5-4.9) 11/06/19 06:56 Magnesium 2.4 mg/dL (1.8-2.4) 11/06/19 06:56 Total Bilirubin 1.4 mg/dL (0.2-1) H 11/06/19 06:56 AST 16 U/L (15-37) 11/06/19 06:56 ALT 27 U/L (13-61) 11/06/19 06:56 Alkaline Phosphatase 33 U/L (45-117) L 11/06/19 06:56 Creatine Kinase 71 U/L (26-308) 11/05/19 17:36 B-Natriuretic Peptide 439.2 pg/ml (5-125) H 11/05/19 15:30 Total Protein 6.2 g/dl (6.4-8.2) L 11/06/19 06:56 Albumin 2.9 g/dl (3.4-5.0) L 11/06/19 06:56 Lipase 120 U/L (73-393) 11/04/19 12:00 Urine Color Yellow 11/04/19 12:00 Urine Appearance Clear 11/04/19 12:00 Urine pH 6.5 (5.0-8.0) 11/04/19 12:00 Ur Specific [place] 1.020 (1.010-1.035) 11/04/19 12:00 Urine Protein Trace (NEGATIVE) 11/04/19 12:00 Urine Glucose (UA) Negative (NEGATIVE) 11/04/19 12:00 Urine Ketones Negative (NEGATIVE) 11/04/19 12:00 Urine Blood 1+ (NEGATIVE) H 11/04/19 12:00 Urine Nitrite Negative (NEGATIVE) 11/04/19 12:00 Urine Bilirubin Negative (NEGATIVE) 11/04/19 12:00 Urine Urobilinogen 2.0 mg/dL (0.2-1.0) 11/04/19 12:00 Ur Leukocyte Esterase Trace (NEGATIVE) 11/04/19 12:00 Urine WBC (Auto) 6 /uL (0-25.8) 11/04/19 12:00 Urine RBC (Auto) 55 /uL (0-23.9) 11/04/19 12:00 Urine Casts (Auto) 1 /uL (0-3.1) 11/04/19 12:00 U Epithel Cells (Auto) 3 /uL (0-25.1) 11/04/19 12:00 Urine Bacteria (Auto) 8 /uL (0-1359) 11/04/19 12:00 Blood Type B POSITIVE 11/05/19 17:36 Antibody Screen Negative 11/05/19 17:36 Microbiology 11/05/19 01:00 Urine - Urine Clean Catch Urine Culture - Final NO GROWTH OBTAINED 11/04/19 12:00 Urine - Urine Clean Catch Urine Culture - Final NO GROWTH OBTAINED 11/04/19 18:00 Blood - Peripheral Venous Blood Culture - Preliminary NO GROWTH OBTAINED AFTER 24 HOURS, INCUBATION TO CONTINUE FOR 4 DAYS. 11/04/19 18:00 Blood - Peripheral Venous Blood Culture - Preliminary NO GROWTH OBTAINED AFTER 24 HOURS, INCUBATION TO CONTINUE FOR 4 DAYS. - ....Imaging Cat Scan: Report Reviewed Problem List - Problems (1) Renal hematoma Code(s): S37.019A - MINOR CONTUSION OF UNSPECIFIED KIDNEY, INITIAL ENCOUNTER Qualifiers: Encounter type: initial encounter Laterality: left Qualified Code(s): S37.012A - Minor contusion of left kidney, initial encounter Assessment/Plan Fever Leukocytosis Lt subcapsular hematoma Nephrolithiasis s/p lithotripsy -- chart/lab and imaging results reviewed -- low grade fevers now, leukocytosis improving -- Blood and Urine cultures negative so far -- repeat CT without change -- vitals stable -- continue Zosyn for now, will consider d/c -- followup -- f/u COVID screen cc: 38 min
--- NOTE | 2019-11-06 16:44 | PN ---
Physical Exam: SUBJECTIVE: Patient seen and examined Patient seen and examined in the room. Patient's pain severity reduced to 4/10 and state he feels "much better" than before. The patient denies fevers, chills, nausea, vomiting, and dysuria. OBJECTIVE: Vital Signs Period Temp Pulse Resp BP Sys/Dutta Pulse Ox Last 24 Hr 97.6 F-100.9 F 73-99 14-22 110-138/64-70 92-100 GENERAL: The patient is awake, alert, and fully oriented, in no acute distress. HEAD: Normal with no signs of trauma. EYES: PERRL, extraocular movements intact, sclera anicteric, conjunctiva clear. No ptosis. ENT: nares patent, oropharynx clear without exudates, moist mucous membranes. NECK: Trachea midline, full range of motion, supple. LUNGS: Breath sounds equal, clear to auscultation bilaterally, no wheezes, no crackles, no accessory muscle use. HEART: Regular rate and rhythm, S1, S2 without murmur, rub or gallop. ABDOMEN: mild tenderness in the left lower quadrant, normoactive bowel sounds, no guarding, no rebound, EXTREMITIES: 2+ pulses, warm, well-perfused, no edema. NEUROLOGICAL: Cranial nerves II through XII grossly intact. Normal speech, gait not observed. PSYCH: Normal mood, normal affect. SKIN: Warm, dry, normal turgor, no rashes or lesions noted Laboratory Results - last 24 hr 11/04/19 11/05/19 11/05/19 23:28 15:30 17:36 WBC 15.8 H RBC 3.59 L Hgb 10.6 L Hct 31.7 L MCV 88.1 MCH 29.5 MCHC 33.5 RDW 13.6 Plt Count 184 MPV 9.0 Sodium Potassium Chloride Carbon Dioxide Anion Gap BUN Creatinine Est GFR (CKD-EPI)AfAm Est GFR (CKD-EPI)NonAf Random Glucose Lactic Acid Calcium Phosphorus Magnesium Total Bilirubin AST ALT Alkaline Phosphatase Creatine Kinase B-Natriuretic Peptide 439.2 H Total Protein Albumin COVID-19 (LETTY) Not detected Blood Type Antibody Screen 11/05/19 11/05/19 11/05/19 17:36 17:36 17:50 WBC RBC Hgb Hct MCV MCH MCHC RDW Plt Count MPV Sodium 138 Potassium 3.8 Chloride 101 Carbon Dioxide 30 Anion Gap 7 L BUN 15.0 Creatinine 1.3 Est GFR (CKD-EPI)AfAm 68.25 Est GFR (CKD-EPI)NonAf 58.89 Random Glucose 101 Lactic Acid 0.9 Calcium 8.3 L Phosphorus Magnesium Total Bilirubin 1.4 H AST 23 ALT 34 Alkaline Phosphatase 40 L Creatine Kinase 71 B-Natriuretic Peptide Total Protein 6.3 L Albumin 3.1 L COVID-19 (LETTY) Blood Type B POSITIVE Antibody Screen Negative 11/06/19 11/06/19 06:56 06:56 WBC 14.7 H RBC 3.27 L Hgb 9.8 L Hct 29.0 L MCV 88.5 MCH 29.8 MCHC 33.7 RDW 13.4 Plt Count 182 MPV 8.9 Sodium 137 Potassium 3.9 Chloride 102 Carbon Dioxide 29 Anion Gap 7 L BUN 19.9 H Creatinine 1.3 Est GFR (CKD-EPI)AfAm 68.25 Est GFR (CKD-EPI)NonAf 58.89 Random Glucose 93 Lactic Acid Calcium 8.3 L Phosphorus 3.8 Magnesium 2.4 Total Bilirubin 1.4 H AST 16 ALT 27 Alkaline Phosphatase 33 L Creatine Kinase B-Natriuretic Peptide Total Protein 6.2 L Albumin 2.9 L COVID-19 (LETTY) Blood Type Antibody Screen Active Medications Generic Name Dose Route Start Last Admin Trade Name Freq PRN Reason Stop Dose Admin Amlodipine Besylate 5 mg 11/06/19 10:00 11/06/19 09:30 Norvasc - PO 5 mg DAILY DERICK Administration Chlorhexidine Gluconate 1 applic 11/05/19 22:00 11/05/19 22:22 Hibiclens For Decolonization - TP 1 applic HS DERICK Administration Piperacillin Sod/Tazobactam 50 mls @ 100 mls/hr 11/06/19 02:00 11/06/19 09:30 Sod 3.375 gm/ Dextrose IVPB 100 mls/hr Q8H-IV DERICK Administration Protocol Morphine Sulfate 2 mg 11/05/19 19:11 Morphine Sulfate IVPUSH Q6H PRN PAIN LEVEL 4 - 6 Mupirocin 1 applic 11/05/19 22:00 11/06/19 09:30 Bactroban Ointment (For Decolonization) - NS 11/10/19 21:59 1 applic BID DERICK Administration Ondansetron HCl 4 mg 11/05/19 19:11 11/05/19 19:50 Zofran Injection IVPUSH 4 mg Q6H PRN Administration NAUSEA Tamsulosin HCl 0.4 mg 11/06/19 08:30 11/06/19 08:41 Flomax - PO 0.4 mg DAILY@0830 DERICK Administration ASSESSMENT/PLAN: 59 yo M with a hx of HTN, kidney stones (received procedure of extracorpeal lithotripsy 11/01/2019) presented to the emergency department with left flank pain found to have a subscapular hematoma in the left kidney with suspicion of pyelonephritis. Plan: antibiotics per infectious disease recommendations follow up cultures Will be transferred to the floor - endorsed to Dr. Hernández on microblog Visit type - Emergency Visit Emergency Visit: Yes ED Registration Date: 11/04/19 Care time: The patient presented to the Emergency Department on the above date and was hospitalized for further evaluation of their emergent condition. - New Patient This patient is new to me today: No - Critical Care Critical Care patient: Yes Total Critical Care Time (in minutes): 36 Critical Care Statement: The care of this patient involved high complexity decision making to prevent further life threatening deterioration of the patient's condition and/or to evaluate & treat vital organ system(s) failure or risk of failure. ATTENDING PHYSICIAN STATEMENT I saw and evaluated the patient. I reviewed the resident's note and discussed the case with the resident. I agree with the resident's findings and plan as documented. SUBJECTIVE: OBJECTIVE: ASSESSMENT AND PLAN:
[2019-11-06] MEDS ORDERED: ACETAMINOPHEN 1000 MG/100 ML VIAL (NON FORMULARY) IVPB ONE ×2 (18:14→23:07)
[2019-11-06] MEDS ORDERED: MORPHINE SULFATE 2 MG/ML VIAL IVPUSH PRN (23:30)
[2019-11-07] MEDS ORDERED: DEXTROSE 5%-WATER - 50 ML IVPB ONE ×3 (00:42→17:58)
[2019-11-07] MEDS ORDERED: PIPERACILLIN/TAZOBACTAM 3.375 GM VIAL IVPB ONE ×3 (00:42→17:58)
[2019-11-07] MEDS: PIPERACILLIN/TAZOB 3.375 GM 3.375 GM in DEXTROSE 5%-WATER - 50 ML IVPB SCH ×3 (01:03→18:20)
[2019-11-07] MEDS ORDERED: ONDANSETRON 4 MG/2 ML VIAL IVPUSH PRN (02:00)
[2019-11-07 07:37] LABS: BASO % 0.2 % (0-2.0); HEMOGLOBIN 10.1 GM/dL (11.7-16.9); LYMPH % 15.2 % (8-40); MCH 29.4 pg (25.7-33.7); MCHC 33.5 g/dl (32.0-35.9); MEAN CELL VOLUME 87.5 fl (80-96); MEAN PLT VOLUME 8.5 fl (7.5-11.1); MONO % 9.1 % (3.8-10.2); NEUT % 74.5 % (42.8-82.8); PLATELET COUNT 215 K/MM3 (134-434); RBC 3.43 M/mm3 (4.00-5.60); RDW 13.3 % (11.9-15.9); WHITE BLOOD COUNT 12.6 K/mm3 (4.0-10.0)
[2019-11-07 08:21] LABS: ALBUMIN 2.8 g/dl (3.4-5.0); BILIRUBIN,TOTAL 0.9 mg/dL (0.2-1); CALCIUM 8.6 mg/dL (8.5-10.1); CREATININE 1.2 mg/dL (0.55-1.3); POTASSIUM 3.8 mmol/L (3.5-5.1); TOT PROT 6.3 g/dl (6.4-8.2)
[2019-11-07] MEDS: amLODIPine BESYLATE 5 MG TABLET (FP) PO SCH (09:53)
[2019-11-07] MEDS: TAMSULOSIN HCL 0.4 MG CAP PO SCH (09:53)
--- NOTE | 2019-11-07 12:02 | PN ---
Physical Exam: SUBJECTIVE: Patient seen and examined Patient seen and examined still has pain in the left lower knee area. Good appetite he ate well no nausea vomiting. Seen by infectious disease yesterday. OBJECTIVE: Vital Signs Period Temp Pulse Resp BP Sys/Dutta Pulse Ox Last 24 Hr 97.6 F-102 F 71-113 14-23 111-138/59-70 94-100 GENERAL: The patient is awake, alert, and fully oriented, in no acute distress. HEAD: Normal with no signs of trauma. EYES: PERRL, extraocular movements intact, sclera anicteric, conjunctiva clear. No ptosis. ENT: Ears normal, nares patent, oropharynx clear without exudates, moist mucous membranes. NECK: Trachea midline, full range of motion, supple. LUNGS: Breath sounds equal, clear to auscultation bilaterally, no wheezes, no crackles, no accessory muscle use. HEART: Regular rate and rhythm, S1, S2 without murmur, rub or gallop. ABDOMEN: Soft, nontender, nondistended, normoactive bowel sounds, no guarding, no rebound, no hepatosplenomegaly, no masses. EXTREMITIES: 2+ pulses, warm, well-perfused, no edema. NEUROLOGICAL: Cranial nerves II through XII grossly intact. Normal speech, gait not observed. PSYCH: Normal mood, normal affect. SKIN: Warm, dry, normal turgor, no rashes or lesions noted Laboratory Results - last 24 hr 11/04/19 11/07/19 11/07/19 23:28 05:45 05:45 WBC 12.6 H RBC 3.43 L Hgb 10.1 L Hct 30.0 L MCV 87.5 MCH 29.4 MCHC 33.5 RDW 13.3 Plt Count 215 MPV 8.5 Absolute Neuts (auto) 9.4 H Neutrophils % 74.5 Lymphocytes % 15.2 D Monocytes % 9.1 Eosinophils % 1.0 D Basophils % 0.2 Nucleated RBC % 0 Sodium 138 Potassium 3.8 Chloride 101 Carbon Dioxide 31 Anion Gap 7 L BUN 19.0 H Creatinine 1.2 Est GFR (CKD-EPI)AfAm 75.19 Est GFR (CKD-EPI)NonAf 64.87 Random Glucose 85 Calcium 8.6 Total Bilirubin 0.9 AST 20 ALT 29 Alkaline Phosphatase 40 L Total Protein 6.3 L Albumin 2.8 L COVID-19 (LETTY) Not detected Active Medications Generic Name Dose Route Start Last Admin Trade Name Freq PRN Reason Stop Dose Admin Amlodipine Besylate 5 mg 11/07/19 10:00 11/07/19 09:53 Norvasc - PO 5 mg DAILY DERICK Administration Piperacillin Sod/Tazobactam 50 mls @ 100 mls/hr 11/07/19 02:00 11/07/19 09:53 Sod 3.375 gm/ Dextrose IVPB 100 mls/hr Q8H-IV DERICK Administration Protocol Morphine Sulfate 2 mg 11/06/19 23:30 Morphine Sulfate IVPUSH Q6H PRN PAIN LEVEL 4 - 6 Ondansetron HCl 4 mg 11/07/19 02:00 Zofran Injection IVPUSH Q6H PRN NAUSEA Tamsulosin HCl 0.4 mg 11/07/19 08:30 11/07/19 09:53 Flomax - PO 0.4 mg DAILY@0830 DERICK Administration ASSESSMENT/PLAN: 59 yo M with a hx of HTN, kidney stones (received procedure of extracorpeal lithotripsy 11/01/2019) presented to the emergency department with left flank pain found to have a subscapular hematoma in the left kidney with suspicion of pyelonephritis. Plan continue IV antibiotic fluids urology follow-up he is improving. Repeat CAT scan of the abdominal pelvis no change. Hemoglobin is stable . Visit type - Emergency Visit Emergency Visit: Yes ED Registration Date: 11/04/19 Care time: The patient presented to the Emergency Department on the above date and was hospitalized for further evaluation of their emergent condition. - New Patient This patient is new to me today: Yes Date on this admission: 11/07/19 - Critical Care Critical Care patient: No - Discharge Referral Referred to [facility] Med [facility] No
--- NOTE | 2019-11-07 12:03 | CONSULT ---
Consult - text type - Consultation Consultation Note: CC Left subcapsular hematoma HPI: Patient is improving with an improving appetite and left renal colic. Patient is ambulating. His WBC is normalizing and his creatitine is 1.2. The patient Hct is also stable. All blood and urine cultures are negative thus far. The patient has had a bowel movement and denies gross hematuria. PE VSS: Tmax 100.9/T afeb abd-improving left CVAT imp left subcapsular hematoma s/ left eswl leukocytosis with fever plan patient is stable and improving well continue current management
[2019-11-07] MEDS: ACETAMINOPHEN 325 MG TABLET (FP) PO PRN (16:06)
--- NOTE | 2019-11-07 18:43 | PN ---
Progress Note, Physician History of Present Illness: Pt states he's feeling a bit better with less Lt sided pain. Tmax 100.9F at midnight. wbc trending down. Eating well and ambulated today. - Current Medication List Current Medications: Active Medications Acetaminophen (Tylenol -) 650 mg PO Q6H PRN PRN Reason: FEVER Last Admin: 11/07/19 16:06 Dose: 650 mg Documented by: Amlodipine Besylate (Norvasc -) 5 mg PO DAILY [facility] Last Admin: 11/07/19 09:53 Dose: 5 mg Documented by: Piperacillin Sod/Tazobactam (Sod 3.375 gm/ Dextrose) 50 mls @ 100 mls/hr IVPB Q8H-IV DERICK; Protocol Last Admin: 11/07/19 18:20 Dose: 100 mls/hr Documented by: Morphine Sulfate (Morphine Sulfate) 2 mg IVPUSH Q6H PRN PRN Reason: PAIN LEVEL 4 - 6 Ondansetron HCl (Zofran Injection) 4 mg IVPUSH Q6H PRN PRN Reason: NAUSEA Tamsulosin HCl (Flomax -) 0.4 mg PO DAILY@0830 [facility] Last Admin: 11/07/19 09:53 Dose: 0.4 mg Documented by: - Objective Vital Signs: Vital Signs Temperature 100.5 F H 11/07/19 14:00 Pulse Rate 93 H 11/07/19 14:00 Respiratory Rate 18 11/07/19 14:00 Blood Pressure 126/69 11/07/19 14:00 O2 Sat by Pulse Oximetry (%) 100 11/07/19 14:00 Constitutional: Yes: No Distress, Calm Cardiovascular: Yes: Regular Rate and Rhythm Respiratory: Yes: CTA Bilaterally Gastrointestinal: Yes: Normal Bowel Sounds, Soft Genitourinary: Yes: CVA Tenderness - Left, Other (Lt sided abd pain to grain with palpation, less) Integumentary: Yes: WNL Neurological: Yes: Alert, Oriented Labs: CBC, BMP 11/07/19 05:45 11/07/19 05:45 INR, PTT INR 1.25 (0.83-1.09) H 11/05/19 07:52 Microbiology 11/04/19 18:00 Blood - Peripheral Venous Blood Culture - Preliminary NO GROWTH OBTAINED AFTER 48 HOURS, INCUBATION TO CONTINUE FOR 3 DAYS. 11/04/19 18:00 Blood - Peripheral Venous Blood Culture - Preliminary NO GROWTH OBTAINED AFTER 48 HOURS, INCUBATION TO CONTINUE FOR 3 DAYS. 11/05/19 01:00 Urine - Urine Clean Catch Urine Culture - Final NO GROWTH OBTAINED 11/04/19 12:00 Urine - Urine Clean Catch Urine Culture - Final NO GROWTH OBTAINED Problem List - Problems (1) Renal hematoma Code(s): S37.019A - MINOR CONTUSION OF UNSPECIFIED KIDNEY, INITIAL ENCOUNTER Qualifiers: Encounter type: initial encounter Laterality: left Qualified Code(s): S37.012A - Minor contusion of left kidney, initial encounter Assessment/Plan Fever Leukocytosis Lt subcapsular hematoma Nephrolithiasis s/p lithotripsy -- wbc trending down with some improvement in pain, pt ambulating without difficulty, but with low grade fevers -- routine cultures neg so far -- fevers possibly due to hematoma/inflammation rather than infection. If fevers persist suggest repeat CT. Last one without change from previous. -- continue Zosyn for now -- continue monitor wbc/temps -- followup
[2019-11-08] MEDS ORDERED: PIPERACILLIN/TAZOBACTAM 3.375 GM VIAL IVPB ONE ×3 (00:25→16:48)
[2019-11-08] MEDS ORDERED: DEXTROSE 5%-WATER - 50 ML IVPB ONE ×3 (00:25→16:48)
[2019-11-08] MEDS: PIPERACILLIN/TAZOB 3.375 GM 3.375 GM in DEXTROSE 5%-WATER - 50 ML IVPB SCH ×3 (01:39→17:18)
[2019-11-08] MEDS: ACETAMINOPHEN 325 MG TABLET (FP) PO PRN ×2 (02:32→21:45)
[2019-11-08] MEDS: TAMSULOSIN HCL 0.4 MG CAP PO SCH (09:16)
[2019-11-08] MEDS: amLODIPine BESYLATE 5 MG TABLET (FP) PO SCH (09:16)
--- NOTE | 2019-11-08 11:33 | PN ---
Progress Note, Physician History of Present Illness: continues to spike low grade fever and still with sweating - Current Medication List Current Medications: Active Medications Acetaminophen (Tylenol -) 650 mg PO Q6H PRN PRN Reason: FEVER Last Admin: 11/08/19 02:32 Dose: 650 mg Documented by: Amlodipine Besylate (Norvasc -) 5 mg PO DAILY [facility] Last Admin: 11/08/19 09:16 Dose: 5 mg Documented by: Piperacillin Sod/Tazobactam (Sod 3.375 gm/ Dextrose) 50 mls @ 100 mls/hr IVPB Q8H-IV DERICK; Protocol Last Admin: 11/08/19 09:16 Dose: 100 mls/hr Documented by: Morphine Sulfate (Morphine Sulfate) 2 mg IVPUSH Q6H PRN PRN Reason: PAIN LEVEL 4 - 6 Ondansetron HCl (Zofran Injection) 4 mg IVPUSH Q6H PRN PRN Reason: NAUSEA Last Admin: 11/07/19 22:49 Dose: 4 mg Documented by: Tamsulosin HCl (Flomax -) 0.4 mg PO DAILY@0830 [facility] Last Admin: 11/08/19 09:16 Dose: 0.4 mg Documented by: - Objective Vital Signs: Vital Signs Temperature 98.9 F 11/08/19 09:30 Pulse Rate 80 11/08/19 09:30 Respiratory Rate 18 11/08/19 09:30 Blood Pressure 132/74 11/08/19 09:30 O2 Sat by Pulse Oximetry (%) 98 11/08/19 09:30 Constitutional: Yes: Calm, Mild Distress Cardiovascular: Yes: S1, S2 Respiratory: Yes: Regular, CTA Bilaterally Gastrointestinal: Yes: Normal Bowel Sounds, Soft Musculoskeletal: Yes: WNL Extremities: Yes: WNL Neurological: Yes: Alert, Oriented Psychiatric: Yes: Alert, Oriented Labs: CBC, BMP 11/07/19 05:45 11/07/19 05:45 INR, PTT INR 1.25 (0.83-1.09) H 11/05/19 07:52 Assessment/Plan 59 y/0 male with PMH of Htn. kidney stones (s/p lithotripsy 3 days ago) presents to the ED with complaints of nausea/vomiting, fevers and left sided flank radiating into the groin pain found to have a L subcapsular hematoma on CT scan Left Subcapsular hematoma HTN leukocytosis fever plan will continue zosyn ct of the chest
[2019-11-08 12:01] LABS: BASO % 0.4 % (0-2.0); EOS % 1.1 % (0-4.5); HEMATOCRIT 31.2 % (35.4-49); HEMOGLOBIN 10.6 GM/dL (11.7-16.9); LYMPH % 15.8 % (8-40); MCH 29.5 pg (25.7-33.7); MEAN CELL VOLUME 86.9 fl (80-96); MONO % 8.8 % (3.8-10.2); NEUT % 73.9 % (42.8-82.8); PLATELET COUNT 327 K/MM3 (134-434); RBC 3.59 M/mm3 (4.00-5.60); RDW 13.5 % (11.9-15.9); WHITE BLOOD COUNT 10.4 K/mm3 (4.0-10.0)
[2019-11-08 12:24] LABS: ALBUMIN 2.9 g/dl (3.4-5.0); BILIRUBIN,TOTAL 1.1 mg/dL (0.2-1); BLOOD UREA NITROGEN 19.4 mg/dL (7-18); CALCIUM 8.8 mg/dL (8.5-10.1); CREATININE 1.1 mg/dL (0.55-1.3); POTASSIUM 3.8 mmol/L (3.5-5.1); TOT PROT 6.9 g/dl (6.4-8.2)
--- NOTE | 2019-11-08 16:32 | PN ---
Progress Note, Physician History of Present Illness: Pt seen and examined at bedside. he is awake and alert. he feels that the pain is improving. - Current Medication List Current Medications: Active Medications Acetaminophen (Tylenol -) 650 mg PO Q6H PRN PRN Reason: FEVER Last Admin: 11/08/19 02:32 Dose: 650 mg Documented by: Amlodipine Besylate (Norvasc -) 5 mg PO DAILY [facility] Last Admin: 11/08/19 09:16 Dose: 5 mg Documented by: Piperacillin Sod/Tazobactam (Sod 3.375 gm/ Dextrose) 50 mls @ 100 mls/hr IVPB Q8H-IV DERICK; Protocol Last Admin: 11/08/19 09:16 Dose: 100 mls/hr Documented by: Morphine Sulfate (Morphine Sulfate) 2 mg IVPUSH Q6H PRN PRN Reason: PAIN LEVEL 4 - 6 Ondansetron HCl (Zofran Injection) 4 mg IVPUSH Q6H PRN PRN Reason: NAUSEA Last Admin: 11/07/19 22:49 Dose: 4 mg Documented by: Tamsulosin HCl (Flomax -) 0.4 mg PO DAILY@0830 [facility] Last Admin: 11/08/19 09:16 Dose: 0.4 mg Documented by: - Objective Vital Signs: Vital Signs Temperature 99.4 F 11/08/19 14:20 Pulse Rate 84 11/08/19 14:20 Respiratory Rate 18 11/08/19 14:20 Blood Pressure 141/66 11/08/19 14:20 O2 Sat by Pulse Oximetry (%) 93 L 11/08/19 14:20 Constitutional: Yes: Calm Eyes: Yes: Conjunctiva Clear HENT: Yes: Atraumatic Neck: Yes: Supple Cardiovascular: Yes: S1, S2 Respiratory: Yes: CTA Bilaterally Gastrointestinal: Yes: Normal Bowel Sounds, Soft Genitourinary: Yes: WNL Musculoskeletal: Yes: WNL Edema: No Neurological: Yes: Oriented Psychiatric: Yes: Oriented Labs: CBC, BMP 11/08/19 11:45 11/08/19 11:45 INR, PTT INR 1.25 (0.83-1.09) H 11/05/19 07:52 Problem List - Problems (1) Abdominal pain Code(s): R10.9 - UNSPECIFIED ABDOMINAL PAIN Qualifiers: Abdominal location: left lower quadrant Qualified Code(s): R10.32 - Left lower quadrant pain (2) Renal hematoma Code(s): S37.019A - MINOR CONTUSION OF UNSPECIFIED KIDNEY, INITIAL ENCOUNTER Qualifiers: Encounter type: initial encounter Laterality: left Qualified Code(s): S37.012A - Minor contusion of left kidney, initial encounter Assessment/Plan Current Medications Generic Name Dose Route Start Last Admin Trade Name Freq PRN Reason Stop Dose Admin Acetaminophen 650 mg 11/07/19 15:48 11/08/19 02:32 Tylenol - PO 650 mg Q6H PRN Administration FEVER Amlodipine Besylate 5 mg 11/07/19 10:00 11/08/19 09:16 Norvasc - PO 5 mg DAILY DERICK Administration Piperacillin Sod/Tazobactam 50 mls @ 100 mls/hr 11/07/19 02:00 11/08/19 09:16 Sod 3.375 gm/ Dextrose IVPB 100 mls/hr Q8H-IV DERICK Administration Protocol Morphine Sulfate 2 mg 11/06/19 23:30 Morphine Sulfate IVPUSH Q6H PRN PAIN LEVEL 4 - 6 Ondansetron HCl 4 mg 11/07/19 02:00 11/07/19 22:49 Zofran Injection IVPUSH 4 mg Q6H PRN Administration NAUSEA Tamsulosin HCl 0.4 mg 11/07/19 08:30 11/08/19 09:16 Flomax - PO 0.4 mg DAILY@0830 DERICK Administration Impression 1. shameka improving 2. nephrolithiasis 3. left renal sub-capsular hematoma 4. 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
--- NOTE | 2019-11-08 21:05 | PN ---
Physical Exam: SUBJECTIVE: Chart reviewed. Pt. not in room at time of rounding. OBJECTIVE: Vital Signs Period Temp Pulse Resp BP Sys/Dutta Pulse Ox Last 24 Hr 98.9 F-100.9 F 73-84 18-18 129-146/60-84 93-98 No Physical exam as Pt. getting imaging currently. PE as per Dr. Hernández Laboratory Results - last 24 hr 11/08/19 11/08/19 11:45 11:45 WBC 10.4 H RBC 3.59 L Hgb 10.6 L Hct 31.2 L MCV 86.9 MCH 29.5 MCHC 34.0 RDW 13.5 Plt Count 327 D MPV 8.0 Absolute Neuts (auto) 7.6 Neutrophils % 73.9 Lymphocytes % 15.8 Monocytes % 8.8 Eosinophils % 1.1 Basophils % 0.4 Nucleated RBC % 0 Sodium 140 Potassium 3.8 Chloride 103 Carbon Dioxide 32 Anion Gap 5 L BUN 19.4 H Creatinine 1.1 Est GFR (CKD-EPI)AfAm 83.53 Est GFR (CKD-EPI)NonAf 72.07 Random Glucose 92 Calcium 8.8 Total Bilirubin 1.1 H AST 33 ALT 44 Alkaline Phosphatase 41 L Total Protein 6.9 Albumin 2.9 L Active Medications Generic Name Dose Route Start Last Admin Trade Name Freq PRN Reason Stop Dose Admin Acetaminophen 650 mg 11/07/19 15:48 11/08/19 02:32 Tylenol - PO 650 mg Q6H PRN Administration FEVER Amlodipine Besylate 5 mg 11/07/19 10:00 11/08/19 09:16 Norvasc - PO 5 mg DAILY DERICK Administration Piperacillin Sod/Tazobactam 50 mls @ 100 mls/hr 11/07/19 02:00 11/08/19 17:18 Sod 3.375 gm/ Dextrose IVPB 100 mls/hr Q8H-IV DERICK Administration Protocol Morphine Sulfate 2 mg 11/06/19 23:30 Morphine Sulfate IVPUSH Q6H PRN PAIN LEVEL 4 - 6 Ondansetron HCl 4 mg 11/07/19 02:00 11/07/19 22:49 Zofran Injection IVPUSH 4 mg Q6H PRN Administration NAUSEA Tamsulosin HCl 0.4 mg 11/07/19 08:30 11/08/19 09:16 Flomax - PO 0.4 mg DAILY@0830 [facility] Administration ASSESSMENT/PLAN: Pt. is a 59 y.o. M w/ PMHx. of HTN, BPH, kidney stones (s/p lithotripsy 3 days ago) presents to the ED with complaints of nausea/vomiting, fevers and left sided flank radiating into the groin pain found to have a L subcapsular hematoma on CT scan #Left Subcapsular Renal hematoma CT scan shows L subcapsualr hemaotma w/ perinpehric stranding and free fluid -Urology Consult appreciated --> self limiting hematoma, no acute intervention needed -c/w Zosyn -ID consult, f.u Chest CT to r/o malignancy vs TB for recurrent nightsweats -nephro consult appreciated -zofran PRN for nausea -morphine PRN for pain -f/u blood and urine cx--> NTD #BPH c/w Flomax #HTN c/w amlodipine 10mg daily FEN No IVF, encourage PO intake monitor electrolytes Sodium controlled diet Dvt ppx: scds in light of hematoma dispo: med-surg Visit type - Emergency Visit Emergency Visit: Yes ED Registration Date: 11/04/19 Care time: The patient presented to the Emergency Department on the above date and was hospitalized for further evaluation of their emergent condition. - New Patient This patient is new to me today: Yes Date on this admission: 11/08/19 - Critical Care Critical Care patient: No - Discharge Referral Referred to [facility] Med P.C.: No ATTENDING PHYSICIAN STATEMENT I saw and evaluated the patient. I reviewed the resident's note and discussed the case with the resident. I agree with the resident's findings and plan as documented. SUBJECTIVE: OBJECTIVE: ASSESSMENT AND PLAN:
[2019-11-09] MEDS ORDERED: DEXTROSE 5%-WATER - 50 ML IVPB ONE ×3 (01:43→18:30)
[2019-11-09] MEDS ORDERED: PIPERACILLIN/TAZOBACTAM 3.375 GM VIAL IVPB ONE ×3 (01:43→18:30)
[2019-11-09] MEDS: PIPERACILLIN/TAZOB 3.375 GM 3.375 GM in DEXTROSE 5%-WATER - 50 ML IVPB SCH ×3 (02:13→18:33)
--- NOTE | 2019-11-09 07:49 | PN ---
Progress Note, Physician History of Present Illness: pulmonary alert,comfortable,-sob,-cough,+ left sided flank pain,t 99.6 - Current Medication List Current Medications: Active Medications Acetaminophen (Tylenol -) 650 mg PO Q6H PRN PRN Reason: FEVER Last Admin: 11/08/19 21:45 Dose: 650 mg Documented by: Amlodipine Besylate (Norvasc -) 5 mg PO DAILY [facility] Last Admin: 11/08/19 09:16 Dose: 5 mg Documented by: Piperacillin Sod/Tazobactam (Sod 3.375 gm/ Dextrose) 50 mls @ 100 mls/hr IVPB Q8H-IV DERICK; Protocol Last Admin: 11/09/19 02:13 Dose: 100 mls/hr Documented by: Morphine Sulfate (Morphine Sulfate) 2 mg IVPUSH Q6H PRN PRN Reason: PAIN LEVEL 4 - 6 Ondansetron HCl (Zofran Injection) 4 mg IVPUSH Q6H PRN PRN Reason: NAUSEA Last Admin: 11/07/19 22:49 Dose: 4 mg Documented by: Tamsulosin HCl (Flomax -) 0.4 mg PO DAILY@08 [facility] Last Admin: 11/08/19 09:16 Dose: 0.4 mg Documented by: - Objective Vital Signs: Vital Signs Temperature 99.6 F 11/09/19 06:00 Pulse Rate 70 11/09/19 06:00 Respiratory Rate 70 H 11/09/19 06:00 Blood Pressure 130/64 11/09/19 06:00 O2 Sat by Pulse Oximetry (%) 98 11/09/19 06:00 Constitutional: Yes: Well Nourished, Calm Eyes: Yes: WNL HENT: Yes: WNL Neck: Yes: WNL Cardiovascular: Yes: Regular Rate and Rhythm, Pulse Irregular, S1 Respiratory: Yes: CTA Bilaterally Gastrointestinal: Yes: Normal Bowel Sounds, Soft Extremities: Yes: WNL Edema: No Labs: CBC, BMP 11/08/19 11:45 11/08/19 11:45 INR, PTT INR 1.25 (0.83-1.09) H 11/05/19 07:52 Assessment/Plan ASSESSMENT AND PLAN: Left Nephrolithiasis s/p Recent L ESWL Left Renal Subcapsular Hematoma HTN L basilar atelectasis - pain control - antibiotics per ID - PO as tolerated - DVT prophylaxis - incentive spirometer DR MENDEZ
--- NOTE | 2019-11-09 08:17 | CONSULT ---
Consult - text type - Consultation Consultation Note: CC: left subcapsular renal hematoma s/p ESWL HPI: Patient is stable clinically with stable Hct and downward trending leukocytosis and creatinine of 1.1. Patient has negative cultures and has had continued fever spikes in the evenings. CT scan of the chest is pending and patient is on Zosyn. Pain in left flank is improving. PE VSS: Tmax 100.8/T 99.6 abd- mild to moderate left CVAT imp left subcapsular hematoma. continue supportive care
[2019-11-09 08:22] LABS: HEMATOCRIT 29.5 % (35.4-49); HEMOGLOBIN 9.9 GM/dL (11.7-16.9); MCH 29.1 pg (25.7-33.7); MCHC 33.4 g/dl (32.0-35.9); MEAN PLT VOLUME 7.6 fl (7.5-11.1); PLATELET COUNT 344 K/MM3 (134-434); RBC 3.39 M/mm3 (4.00-5.60); RDW 13.5 % (11.9-15.9); WHITE BLOOD COUNT 11.7 K/mm3 (4.0-10.0)
[2019-11-09 08:34] LABS: ALBUMIN 2.8 g/dl (3.4-5.0); BILIRUBIN,TOTAL 0.7 mg/dL (0.2-1); BLOOD UREA NITROGEN 22.1 mg/dL (7-18); CALCIUM 8.8 mg/dL (8.5-10.1); CREATININE 1.2 mg/dL (0.55-1.3); MAGNESIUM 2.6 mg/dL (1.8-2.4); POTASSIUM 4.1 mmol/L (3.5-5.1); TOT PROT 6.6 g/dl (6.4-8.2)
[2019-11-09] MEDS: amLODIPine BESYLATE 5 MG TABLET (FP) PO SCH (10:47)
[2019-11-09] MEDS: TAMSULOSIN HCL 0.4 MG CAP PO SCH (10:47)
--- NOTE | 2019-11-09 13:13 | PN ---
Progress Note, Physician History of Present Illness: stable no new issues afebrile spiking fevers - Current Medication List Current Medications: Active Medications Acetaminophen (Tylenol -) 650 mg PO Q6H PRN PRN Reason: FEVER Last Admin: 11/08/19 21:45 Dose: 650 mg Documented by: Amlodipine Besylate (Norvasc -) 5 mg PO DAILY [facility] Last Admin: 11/09/19 10:47 Dose: 5 mg Documented by: Piperacillin Sod/Tazobactam (Sod 3.375 gm/ Dextrose) 50 mls @ 100 mls/hr IVPB Q8H-IV DERICK; Protocol Last Admin: 11/09/19 10:47 Dose: 100 mls/hr Documented by: Morphine Sulfate (Morphine Sulfate) 2 mg IVPUSH Q6H PRN PRN Reason: PAIN LEVEL 4 - 6 Ondansetron HCl (Zofran Injection) 4 mg IVPUSH Q6H PRN PRN Reason: NAUSEA Last Admin: 11/07/19 22:49 Dose: 4 mg Documented by: Tamsulosin HCl (Flomax -) 0.4 mg PO DAILY@0830 [facility] Last Admin: 11/09/19 10:47 Dose: 0.4 mg Documented by: - Objective Vital Signs: Vital Signs Temperature 99.6 F 11/09/19 06:00 Pulse Rate 70 11/09/19 06:00 Respiratory Rate 70 H 11/09/19 06:00 Blood Pressure 130/64 11/09/19 06:00 O2 Sat by Pulse Oximetry (%) 98 11/09/19 06:00 Constitutional: Yes: No Distress, Calm Cardiovascular: Yes: S1, S2 Respiratory: Yes: Regular, CTA Bilaterally Gastrointestinal: Yes: Normal Bowel Sounds, Soft Musculoskeletal: Yes: WNL Extremities: Yes: WNL Neurological: Yes: Alert, Oriented Psychiatric: Yes: Alert, Oriented Labs: CBC, BMP 11/09/19 07:20 11/09/19 07:20 INR, PTT INR 1.25 (0.83-1.09) H 11/05/19 07:52 Assessment/Plan 59 y/0 male with PMH of Htn. kidney stones (s/p lithotripsy 3 days ago) presents to the ED with complaints of nausea/vomiting, fevers and left sided flank radiating into the groin pain found to have a L subcapsular hematoma on CT scan Left Subcapsular hematoma HTN leukocytosis fever plan will continue zosyn await for the results of ct if patient spikes will change to candy
--- NOTE | 2019-11-09 13:48 | PN ---
Teaching Attending Note Name of Resident: Laurent Esparza ATTENDING PHYSICIAN STATEMENT I saw and evaluated the patient. I reviewed the resident's note and discussed the case with the resident. I agree with the resident's findings and plan as documented. SUBJECTIVE: Seen and examined at bedside. Patient denies shortness of breath, chest pain, reports flank pain still present but slightly improved. Febrile overnight to 100.8. CT chest shows bilateral pleural effusions but no obvious infectious source. OBJECTIVE Last Vital Signs Temp Pulse Resp BP Pulse Ox 99.6 F 70 70 H 130/64 98 11/09/19 06:00 11/09/19 06:00 11/09/19 06:00 11/09/19 06:00 11/09/19 06:00 PE: Per resident note Labs/Imaging: reviewed CT chest: focal left basal opacity is not significant change compared to partially visualized findings on prior abdomen pelvis CT and most likely represents atelectasis, however superimposed pneumonia cannot be excluded in the appropriate clinical context. Small bilateral pleural effusions and adjacent atelectasis Mild scattered bilateral emphysematous changes. Cardiomegaly. Partially visualized left kidney subcapsular hematoma and adjacent fat stranding do not significantly change, however comparison is significantly limited to the incomplete visualization ASSESSMENT/PLAN 59-year-old male past medical history of hypertension, BPH, kidney stones with lithotripsy 3 days prior to admission presented with nausea vomiting and fevers and found to have left subcapsular hematoma. #Left subcapsular hematoma Urology on board: No acute intervention needed ID on board Continue with Zosyn Pain/nausea control #Fevers Likely due to left subcapsular hematoma CT chest does not show obvious etiology of fever, other than bilateral pleural effusions #Pleural effusions We will check BNP and echocardiogram to rule out CHF as etiology Continue Zosyn #BPH Continue Flomax #Hypertension Continue amlodipine
--- NOTE | 2019-11-09 14:03 | PN ---
Teaching Attending Note Name of Resident: Laurent Esparza ATTENDING PHYSICIAN STATEMENT I saw and evaluated the patient. I reviewed the resident's note and discussed the case with the resident. I agree with the resident's findings and plan as documented. SUBJECTIVE: Patient seen and examined at bedside, endorses significant improvement of L flank pain, H/H stable, expanding hematoma ruled out, appears to be resolving, still spiking low grade fevers 2/2 ?hematoma itself v.s. superimposed L pyelonephritis, will cont. abx. VSS. OBJECTIVE: Vital Signs Period Temp Pulse Resp BP Sys/Dutta Pulse Ox Last 24 Hr 99.7 F-102.5 F 92-117 18-20 127-144/52-78 86-97 Vital Signs (72 hours) 11/06/19 11/06/19 11/06/19 16:00 18:00 20:00 Temperature 102 F H 97.6 F Pulse Rate 111 H 113 H 93 H Respiratory 20 23 H 16 Rate Blood Pressure 135/66 120/70 121/66 O2 Sat by Pulse 94 L 95 96 Oximetry (%) 11/06/19 11/06/19 11/07/19 20:15 22:00 00:00 Temperature 99.5 F 100.9 F H Pulse Rate 73 85 Respiratory 14 15 Rate Blood Pressure 115/63 126/66 O2 Sat by Pulse 96 99 96 Oximetry (%) 11/07/19 11/07/19 11/07/19 02:00 04:00 05:45 Temperature 98.1 F 97.8 F 99.5 F Pulse Rate 71 72 75 Respiratory 17 16 15 Rate Blood Pressure 116/59 L 111/62 127/64 O2 Sat by Pulse 100 100 100 Oximetry (%) 11/07/19 11/07/19 11/07/19 09:00 10:19 14:00 Temperature 99 F 100.5 F H Pulse Rate 75 93 H Respiratory 18 16 18 Rate Blood Pressure 138/69 126/69 O2 Sat by Pulse 100 100 100 Oximetry (%) 11/07/19 11/07/19 11/07/19 18:00 21:00 22:00 Temperature 99.3 F 99.5 F Pulse Rate 82 Respiratory 18 18 Rate Blood Pressure 129/60 O2 Sat by Pulse 96 96 Oximetry (%) 11/08/19 11/08/19 11/08/19 02:00 06:00 09:00 Temperature 100.9 F H 98.9 F Pulse Rate 81 73 Respiratory 18 18 Rate Blood Pressure 146/72 130/69 O2 Sat by Pulse 96 98 98 Oximetry (%) 11/08/19 11/08/19 11/08/19 09:30 14:20 18:00 Temperature 98.9 F 99.4 F 100.0 F H Pulse Rate 80 84 81 Respiratory 18 18 18 Rate Blood Pressure 132/74 141/66 140/84 O2 Sat by Pulse 98 93 L 94 L Oximetry (%) 11/08/19 11/08/19 11/09/19 21:00 21:38 02:00 Temperature 100.8 F H 98.8 F Pulse Rate 77 64 Respiratory 16 16 Rate Blood Pressure 136/70 136/66 O2 Sat by Pulse 96 97 98 Oximetry (%) 11/09/19 06:00 Temperature 99.6 F Pulse Rate 70 Respiratory 70 H Rate Blood Pressure 130/64 O2 Sat by Pulse 98 Oximetry (%) GENERAL: Awake, alert, and fully oriented, no distress EYES: PEERLA: EOMI; no scleral icterus NECK: no JVD; no lymphadenopathy LUNGS: CTAB, no crackles or wheezing HEART: RRR, S1, S2+ ABDOMEN: minimal L flank pain w/o guarding, R flank unremarkable, BS+, non- distended no L/R CVA tenderness EXTREMITIES: warm; well-perfused no clubbing/cyanosis or edema PSYCHIATRIC: Cooperative. Good eye contact. Appropriate mood and affect. SKIN: Warm, dry, normal turgor, no rashes or lesions noted, normal capillary refill. Microbiology 11/04/19 18:00 Blood - Peripheral Venous Blood Culture - Preliminary NO GROWTH OBTAINED AFTER 96 HOURS, INCUBATION TO CONTINUE FOR 1 DAYS. 11/04/19 18:00 Blood - Peripheral Venous Blood Culture - Preliminary NO GROWTH OBTAINED AFTER 96 HOURS, INCUBATION TO CONTINUE FOR 1 DAYS. 11/05/19 01:00 Urine - Urine Clean Catch Urine Culture - Final NO GROWTH OBTAINED 11/04/19 12:00 Urine - Urine Clean Catch Urine Culture - Final NO GROWTH OBTAINED Laboratory Results - last 24 hr 11/09/19 11/09/19 07:20 07:20 WBC 11.7 H RBC 3.39 L Hgb 9.9 L Hct 29.5 L MCV 87.0 MCH 29.1 MCHC 33.4 RDW 13.5 Plt Count 344 MPV 7.6 Sodium 140 Potassium 4.1 Chloride 104 Carbon Dioxide 32 Anion Gap 4 L BUN 22.1 H Creatinine 1.2 Est GFR (CKD-EPI)AfAm 75.19 Est GFR (CKD-EPI)NonAf 64.87 Random Glucose 89 Calcium 8.8 Magnesium 2.6 H Total Bilirubin 0.7 AST 35 ALT 49 Alkaline Phosphatase 40 L Total Protein 6.6 Albumin 2.8 L Home Medications Medication Instructions Recorded Amlodipine Besylate 10 mg PO DAILY 10/14/19 Aspirin 81 mg PO DAILY 10/14/19 Tamsulosin HCl [Flomax] 0.4 mg PO DAILY 10/14/19 Mirabegron [Myrbetriq] 50 mg PO DAILY 11/04/19 Current Medications Generic Name Dose Route Start Last Admin Trade Name Freq PRN Reason Stop Dose Admin Acetaminophen 650 mg 11/07/19 15:48 11/08/19 21:45 Tylenol - PO 650 mg Q6H PRN Administration FEVER Amlodipine Besylate 5 mg 11/07/19 10:00 11/09/19 10:47 Norvasc - PO 5 mg DAILY DERICK Administration Piperacillin Sod/Tazobactam 50 mls @ 100 mls/hr 11/07/19 02:00 11/09/19 10:47 Sod 3.375 gm/ Dextrose IVPB 100 mls/hr Q8H-IV DERICK Administration Protocol Morphine Sulfate 2 mg 11/06/19 23:30 Morphine Sulfate IVPUSH Q6H PRN PAIN LEVEL 4 - 6 Ondansetron HCl 4 mg 11/07/19 02:00 11/07/19 22:49 Zofran Injection IVPUSH 4 mg Q6H PRN Administration NAUSEA Tamsulosin HCl 0.4 mg 11/07/19 08:30 11/09/19 10:47 Flomax - PO 0.4 mg DAILY@0830 DERICK Administration ASSESSMENT AND PLAN: 59 M L nephrolithiasis s/p ESWL L subcapsular hematoma following ESWL (resolving) Suspected L pyelonephritis HTN Sepsis (resolved) Plan: Cont. Zosyn for suspected L pyelonephritis Cont. castro and do TOV in AM Avoid blood thinners, s/p 1u FFP Urology following Monitor CRE/CBC NC O2 to titrate >92%, control pain, incentive spirometry If fever spikes >101F, re-send fever workup DVT ppx: SCD
--- NOTE | 2019-11-09 16:31 | PN ---
Progress Note, Physician History of Present Illness: Pt seen and examined at bedside. He is awake and alert. he says that he feels much better. - Current Medication List Current Medications: Active Medications Acetaminophen (Tylenol -) 650 mg PO Q6H PRN PRN Reason: FEVER Last Admin: 11/08/19 21:45 Dose: 650 mg Documented by: Amlodipine Besylate (Norvasc -) 5 mg PO DAILY [facility] Last Admin: 11/09/19 10:47 Dose: 5 mg Documented by: Piperacillin Sod/Tazobactam (Sod 3.375 gm/ Dextrose) 50 mls @ 100 mls/hr IVPB Q8H-IV DERICK; Protocol Last Admin: 11/09/19 10:47 Dose: 100 mls/hr Documented by: Morphine Sulfate (Morphine Sulfate) 2 mg IVPUSH Q6H PRN PRN Reason: PAIN LEVEL 4 - 6 Ondansetron HCl (Zofran Injection) 4 mg IVPUSH Q6H PRN PRN Reason: NAUSEA Last Admin: 11/07/19 22:49 Dose: 4 mg Documented by: Tamsulosin HCl (Flomax -) 0.4 mg PO DAILY@829 [facility] Last Admin: 11/09/19 10:47 Dose: 0.4 mg Documented by: - Objective Vital Signs: Vital Signs Temperature 99.6 F 11/09/19 15:23 Pulse Rate 78 11/09/19 15:23 Respiratory Rate 20 11/09/19 15:23 Blood Pressure 130/62 11/09/19 15:23 O2 Sat by Pulse Oximetry (%) 93 L 11/09/19 15:23 Constitutional: Yes: Calm Eyes: Yes: Conjunctiva Clear HENT: Yes: Atraumatic Neck: Yes: Supple Cardiovascular: Yes: S1, S2 Respiratory: Yes: CTA Bilaterally Gastrointestinal: Yes: Normal Bowel Sounds, Soft Genitourinary: Yes: WNL Musculoskeletal: Yes: WNL Edema: No Neurological: Yes: Oriented Psychiatric: Yes: Oriented Labs: CBC, BMP 11/09/19 07:20 11/09/19 07:20 INR, PTT INR 1.25 (0.83-1.09) H 11/05/19 07:52 Problem List - Problems (1) Abdominal pain Code(s): R10.9 - UNSPECIFIED ABDOMINAL PAIN Qualifiers: Abdominal location: left lower quadrant Qualified Code(s): R10.32 - Left lower quadrant pain (2) Renal hematoma Code(s): S37.019A - MINOR CONTUSION OF UNSPECIFIED KIDNEY, INITIAL ENCOUNTER Qualifiers: Encounter type: initial encounter Laterality: left Qualified Code(s): S37.012A - Minor contusion of left kidney, initial encounter Assessment/Plan Current Medications Generic Name Dose Route Start Last Admin Trade Name Freq PRN Reason Stop Dose Admin Acetaminophen 650 mg 11/07/19 15:48 11/08/19 21:45 Tylenol - PO 650 mg Q6H PRN Administration FEVER Amlodipine Besylate 5 mg 11/07/19 10:00 11/09/19 10:47 Norvasc - PO 5 mg DAILY DERICK Administration Piperacillin Sod/Tazobactam 50 mls @ 100 mls/hr 11/07/19 02:00 11/09/19 10:47 Sod 3.375 gm/ Dextrose IVPB 100 mls/hr Q8H-IV DERICK Administration Protocol Morphine Sulfate 2 mg 11/06/19 23:30 Morphine Sulfate IVPUSH Q6H PRN PAIN LEVEL 4 - 6 Ondansetron HCl 4 mg 11/07/19 02:00 11/07/19 22:49 Zofran Injection IVPUSH 4 mg Q6H PRN Administration NAUSEA Tamsulosin HCl 0.4 mg 11/07/19 08:30 11/09/19 10:47 Flomax - PO 0.4 mg DAILY@0830 DERICK Administration Impression 1. shameka improving 2. nephrolithiasis 3. left renal sub-capsular hematoma 4. fever Plan - cont to monitor lytes - can d/c fluids - pt tolerating diet - pain is improved - urology followup - pain control
--- NOTE | 2019-11-09 18:26 | PN ---
Physical Exam: SUBJECTIVE: Patient seen and examined. Pt. endorses left flank tenderness that is worse with movement. OBJECTIVE: Vital Signs Period Temp Pulse Resp BP Sys/Dutta Pulse Ox Last 24 Hr 98.8 F-100.8 F 64-78 16-70 130-136/62-70 93-98 GENERAL: The patient is awake, alert, and fully oriented, in mild distress 2/2 pain. HEAD: Normal with no signs of trauma. EYES: Sclera anicteric, conjunctiva clear. ENT: Moist mucous membranes. NECK: Trachea midline, full range of motion, supple. LUNGS: Breath sounds equal, clear to auscultation bilaterally, no wheezes, no crackles, no accessory muscle use. HEART: Regular rate and rhythm, S1, S2 without murmur ABDOMEN: Soft, nontender, nondistended, normoactive bowel sounds, L. CVA tenderness EXTREMITIES: 2+ dorsal pedal pulses, warm, well-perfused, no calf tenderness, no edema. NEUROLOGICAL: Normal speech, gait not observed. PSYCH: Normal mood, normal affect. SKIN: Warm, dry, normal turgor, Laboratory Results - last 24 hr 11/09/19 11/09/19 07:20 07:20 WBC 11.7 H RBC 3.39 L Hgb 9.9 L Hct 29.5 L MCV 87.0 MCH 29.1 MCHC 33.4 RDW 13.5 Plt Count 344 MPV 7.6 Sodium 140 Potassium 4.1 Chloride 104 Carbon Dioxide 32 Anion Gap 4 L BUN 22.1 H Creatinine 1.2 Est GFR (CKD-EPI)AfAm 75.19 Est GFR (CKD-EPI)NonAf 64.87 Random Glucose 89 Calcium 8.8 Magnesium 2.6 H Total Bilirubin 0.7 AST 35 ALT 49 Alkaline Phosphatase 40 L Total Protein 6.6 Albumin 2.8 L Active Medications Generic Name Dose Route Start Last Admin Trade Name Freq PRN Reason Stop Dose Admin Acetaminophen 650 mg 11/07/19 15:48 11/08/19 21:45 Tylenol - PO 650 mg Q6H PRN Administration FEVER Amlodipine Besylate 5 mg 11/07/19 10:00 11/09/19 10:47 Norvasc - PO 5 mg DAILY DERICK Administration Piperacillin Sod/Tazobactam 50 mls @ 100 mls/hr 11/07/19 02:00 11/09/19 10:47 Sod 3.375 gm/ Dextrose IVPB 100 mls/hr Q8H-IV DERICK Administration Protocol Morphine Sulfate 2 mg 11/06/19 23:30 Morphine Sulfate IVPUSH Q6H PRN PAIN LEVEL 4 - 6 Ondansetron HCl 4 mg 11/07/19 02:00 11/07/19 22:49 Zofran Injection IVPUSH 4 mg Q6H PRN Administration NAUSEA Tamsulosin HCl 0.4 mg 11/07/19 08:30 11/09/19 10:47 Flomax - PO 0.4 mg DAILY@0830 DERICK Administration ASSESSMENT/PLAN: Pt. is a 59 y.o. M w/ PMHx. of HTN, BPH, kidney stones (s/p lithotripsy 3 days ago) presents to the ED with complaints of nausea/vomiting, fevers and left sided flank radiating into the groin pain found to have a L subcapsular hematoma on CT scan #Left Subcapsular Renal hematoma CT scan shows L subcapsualr hemaotma w/ perinpehric stranding and free fluid, Rpt. CT a/p showed the same, unchanged. -Urology Consult appreciated --> self limiting hematoma, no acute intervention needed -c/w Zosyn (Day 5 - started 12/05) -ID consult, Chest CT showing atelectasis, some emphysematous changes, cardiomegaly, b/l pleural effusion L>R, cannot r/o superimposed PNA. -Per d/w ID these is concern about hematoma being infected as Pt. w.t recurrent escalating fevers. If Pt. develops fever of 101 or higher will switch to Meropenem and repeat cultures. -nephro consult appreciated -zofran PRN for nausea -morphine PRN for pain -f/u blood and urine cx--> NTD #BPH c/w Flomax #HTN c/w amlodipine 10mg daily FEN No IVF, encourage PO intake monitor electrolytes Sodium controlled diet Dvt ppx: scds in light of hematoma dispo: monitoring on med-surg Visit type - Emergency Visit Emergency Visit: Yes ED Registration Date: 11/04/19 Care time: The patient presented to the Emergency Department on the above date and was hospitalized for further evaluation of their emergent condition. - New Patient This patient is new to me today: No - Critical Care Critical Care patient: No - Discharge Referral Referred to [facility] Med P.C.: No ATTENDING PHYSICIAN STATEMENT I saw and evaluated the patient. I reviewed the resident's note and discussed the case with the resident. I agree with the resident's findings and plan as documented. SUBJECTIVE: OBJECTIVE: ASSESSMENT AND PLAN:
[2019-11-10] MEDS ORDERED: DEXTROSE 5%-WATER 100 ML IVPB ONE ×2 (01:35→10:16)
[2019-11-10] MEDS ORDERED: MEROPENEM 1 GM VIAL (RESTRICTED TO ID) IVPB ONE ×2 (01:35→10:16)
[2019-11-10] MEDS: MEROPENEM 1 GM in DEXTROSE 5%-WATER 100 ML IVPB SCH ×3 (01:53→15:02)
--- NOTE | 2019-11-10 07:13 | PN ---
Progress Note, Physician History of Present Illness: PULMONARY ALERT,COMFORTABLE,LESS FLANK PAIN,-SOB - Current Medication List Current Medications: Active Medications Acetaminophen (Tylenol -) 650 mg PO Q6H PRN PRN Reason: FEVER Last Admin: 11/08/19 21:45 Dose: 650 mg Documented by: Amlodipine Besylate (Norvasc -) 5 mg PO DAILY [facility] Last Admin: 11/09/19 10:47 Dose: 5 mg Documented by: Piperacillin Sod/Tazobactam (Sod 3.375 gm/ Dextrose) 50 mls @ 100 mls/hr IVPB Q8H-IV DERICK; Protocol Last Admin: 11/09/19 18:33 Dose: 100 mls/hr Documented by: Meropenem 1 gm/ Dextrose 100 mls @ 200 mls/hr IVPB Q8H-IV DERICK Meropenem 1 gm/ Dextrose 100 mls @ 200 mls/hr IVPB Q8H-IV DERICK Stop: 11/10/19 18:29 Last Admin: 11/10/19 01:53 Dose: 200 mls/hr Documented by: Ondansetron HCl (Zofran Injection) 4 mg IVPUSH Q6H PRN PRN Reason: NAUSEA Last Admin: 11/07/19 22:49 Dose: 4 mg Documented by: Tamsulosin HCl (Flomax -) 0.4 mg PO DAILY@0830 [facility] Last Admin: 11/09/19 10:47 Dose: 0.4 mg Documented by: - Objective Vital Signs: Vital Signs Temperature 99.3 F 11/10/19 06:00 Pulse Rate 70 11/10/19 06:00 Respiratory Rate 18 11/10/19 06:00 Blood Pressure 143/66 11/10/19 06:00 O2 Sat by Pulse Oximetry (%) 96 11/10/19 06:00 Constitutional: Yes: Well Nourished, Calm Eyes: Yes: WNL HENT: Yes: WNL Neck: Yes: WNL Cardiovascular: Yes: Regular Rate and Rhythm, S1, S2 Respiratory: Yes: CTA Bilaterally Gastrointestinal: Yes: Normal Bowel Sounds, Soft Extremities: Yes: WNL Edema: No Labs: CBC, BMP 11/09/19 07:20 11/09/19 07:20 INR, PTT INR 1.25 (0.83-1.09) H 08/28/20 07:52 Assessment/Plan ASSESSMENT AND PLAN: Left Nephrolithiasis s/p Recent L ESWL Left Renal Subcapsular Hematoma HTN L basilar atelectasis - pain control - antibiotics per ID - PO as tolerated - DVT prophylaxis - Incentive spirometer DR MENDEZ
[2019-11-10 08:56] LABS: BASO % 0.5 % (0-2.0); EOS % 1.8 % (0-4.5); HEMATOCRIT 30.2 % (35.4-49); LYMPH % 13.8 % (8-40); MCH 28.9 pg (25.7-33.7); MCHC 33.2 g/dl (32.0-35.9); MEAN CELL VOLUME 86.9 fl (80-96); MEAN PLT VOLUME 7.6 fl (7.5-11.1); MONO % 9.5 % (3.8-10.2); NEUT % 74.4 % (42.8-82.8); PLATELET COUNT 408 K/MM3 (134-434); RBC 3.47 M/mm3 (4.00-5.60); RDW 13.7 % (11.9-15.9); WHITE BLOOD COUNT 12.8 K/mm3 (4.0-10.0)
[2019-11-10 09:25] LABS: BLOOD UREA NITROGEN 15.9 mg/dL (7-18); CALCIUM 8.9 mg/dL (8.5-10.1); N-TERMINAL BNP 182.2 pg/ml (5-125)
[2019-11-10] MEDS: TAMSULOSIN HCL 0.4 MG CAP PO SCH (10:29)
[2019-11-10] MEDS: amLODIPine BESYLATE 5 MG TABLET (FP) PO SCH (10:29)
--- NOTE | 2019-11-10 11:47 | PN ---
Progress Note, Physician History of Present Illness: Pt seen and examined at bedside. He denies shortness of breath. - Current Medication List Current Medications: Active Medications Acetaminophen (Tylenol -) 650 mg PO Q6H PRN PRN Reason: FEVER Last Admin: 11/08/19 21:45 Dose: 650 mg Documented by: Amlodipine Besylate (Norvasc -) 5 mg PO DAILY DERICK Last Admin: 11/10/19 10:29 Dose: 5 mg Documented by: Piperacillin Sod/Tazobactam (Sod 3.375 gm/ Dextrose) 50 mls @ 100 mls/hr IVPB Q8H-IV DERICK; Protocol Last Admin: 11/09/19 18:33 Dose: 100 mls/hr Documented by: Meropenem 1 gm/ Dextrose 100 mls @ 200 mls/hr IVPB Q8H-IV DERICK Meropenem 1 gm/ Dextrose 100 mls @ 200 mls/hr IVPB Q8H-IV DERICK Stop: 11/10/19 18:29 Last Admin: 11/10/19 10:29 Dose: 200 mls/hr Documented by: Ondansetron HCl (Zofran Injection) 4 mg IVPUSH Q6H PRN PRN Reason: NAUSEA Last Admin: 11/07/19 22:49 Dose: 4 mg Documented by: Tamsulosin HCl (Flomax -) 0.4 mg PO DAILY@0830 DERICK Last Admin: 11/10/19 10:29 Dose: 0.4 mg Documented by: - Objective Vital Signs: Vital Signs Temperature 98.4 F 11/10/19 10:52 Pulse Rate 71 11/10/19 10:52 Respiratory Rate 18 11/10/19 10:52 Blood Pressure 136/66 11/10/19 10:52 O2 Sat by Pulse Oximetry (%) 96 11/10/19 09:00 Constitutional: Yes: Calm Eyes: Yes: Conjunctiva Clear HENT: Yes: Atraumatic Neck: Yes: Supple Cardiovascular: Yes: S1, S2 Respiratory: Yes: CTA Bilaterally Gastrointestinal: Yes: Soft Genitourinary: Yes: WNL Musculoskeletal: Yes: WNL Edema: No Neurological: Yes: Oriented Psychiatric: Yes: Oriented Labs: CBC, BMP 11/10/19 08:14 11/10/19 08:14 INR, PTT INR 1.25 (0.83-1.09) H 11/05/19 07:52 Problem List - Problems (1) Abdominal pain Code(s): R10.9 - UNSPECIFIED ABDOMINAL PAIN Qualifiers: Abdominal location: left lower quadrant Qualified Code(s): R10.32 - Left lower quadrant pain (2) Renal hematoma Code(s): S37.019A - MINOR CONTUSION OF UNSPECIFIED KIDNEY, INITIAL ENCOUNTER Qualifiers: Encounter type: initial encounter Laterality: left Qualified Code(s): S37.012A - Minor contusion of left kidney, initial encounter Assessment/Plan Current Medications Generic Name Dose Route Start Last Admin Trade Name Freq PRN Reason Stop Dose Admin Acetaminophen 650 mg 11/07/19 15:48 11/08/19 21:45 Tylenol - PO 650 mg Q6H PRN Administration FEVER Amlodipine Besylate 5 mg 11/07/19 10:00 11/10/19 10:29 Norvasc - PO 5 mg DAILY DERICK Administration Piperacillin Sod/Tazobactam 50 mls @ 100 mls/hr 11/07/19 02:00 11/09/19 18:33 Sod 3.375 gm/ Dextrose IVPB 100 mls/hr Q8H-IV DERICK Administration Protocol Meropenem 1 gm/ Dextrose 100 mls @ 200 mls/hr 11/10/19 02:00 IVPB Q8H-IV DERICK Meropenem 1 gm/ Dextrose 100 mls @ 200 mls/hr 11/10/19 02:00 11/10/19 10:29 IVPB 11/10/19 18:29 200 mls/hr Q8H-IV DERICK Administration Ondansetron HCl 4 mg 11/07/19 02:00 11/07/19 22:49 Zofran Injection IVPUSH 4 mg Q6H PRN Administration NAUSEA Tamsulosin HCl 0.4 mg 11/07/19 08:30 11/10/19 10:29 Flomax - PO 0.4 mg DAILY@0830 DERICK Administration Impression 1. shameka improving 2. nephrolithiasis 3. left renal sub-capsular hematoma 4. fever Plan - renal function stable - pain resolved - monitor for fever - abx per medical team - urology followup - pain control
--- NOTE | 2019-11-10 12:37 | PN ---
Progress Note, Physician History of Present Illness: patients wbc trending down - Current Medication List Current Medications: Active Medications Acetaminophen (Tylenol -) 650 mg PO Q6H PRN PRN Reason: FEVER Last Admin: 11/08/19 21:45 Dose: 650 mg Documented by: Amlodipine Besylate (Norvasc -) 5 mg PO DAILY DERICK Last Admin: 11/10/19 10:29 Dose: 5 mg Documented by: Piperacillin Sod/Tazobactam (Sod 3.375 gm/ Dextrose) 50 mls @ 100 mls/hr IVPB Q8H-IV DERICK; Protocol Last Admin: 11/09/19 18:33 Dose: 100 mls/hr Documented by: Ondansetron HCl (Zofran Injection) 4 mg IVPUSH Q6H PRN PRN Reason: NAUSEA Last Admin: 11/07/19 22:49 Dose: 4 mg Documented by: Tamsulosin HCl (Flomax -) 0.4 mg PO DAILY@0830 DERICK Last Admin: 11/10/19 10:29 Dose: 0.4 mg Documented by: - Objective Vital Signs: Vital Signs Temperature 98.4 F 11/10/19 10:52 Pulse Rate 71 11/10/19 10:52 Respiratory Rate 18 11/10/19 10:52 Blood Pressure 136/66 11/10/19 10:52 O2 Sat by Pulse Oximetry (%) 96 11/10/19 09:00 Constitutional: Yes: No Distress, Calm Cardiovascular: Yes: S1, S2 Respiratory: Yes: Regular, CTA Bilaterally Gastrointestinal: Yes: Normal Bowel Sounds, Soft Musculoskeletal: Yes: WNL Extremities: Yes: WNL Neurological: Yes: Alert, Oriented Psychiatric: Yes: Alert, Oriented Labs: CBC, BMP 11/10/19 08:14 11/10/19 08:14 INR, PTT INR 1.25 (0.83-1.09) H 11/05/19 07:52 Assessment/Plan 59 y/0 male with PMH of Htn. kidney stones (s/p lithotripsy 3 days ago) presents to the ED with complaints of nausea/vomiting, fevers and left sided flank radiating into the groin pain found to have a L subcapsular hematoma on CT scan Left Subcapsular hematoma HTN leukocytosis fever plan will continue zosyn monitor wbc
--- NOTE | 2019-11-10 13:54 | PN ---
Teaching Attending Note Name of Resident: Laurent Esparza ATTENDING PHYSICIAN STATEMENT I saw and evaluated the patient. I reviewed the resident's note and discussed the case with the resident. I agree with the resident's findings and plan as documented. SUBJECTIVE: Seen and examined at bedside. Tmax overnight 99.7. OBJECTIVE Last Vital Signs Temp Pulse Resp BP Pulse Ox 98.4 F 71 18 136/66 96 11/10/19 10:52 11/10/19 10:52 11/10/19 10:52 11/10/19 10:52 11/10/19 09:00 PE: Per resident note Labs/Imaging: reviewed Imaging: CT chest: focal left basal opacity is not significant change compared to partially visualized findings on prior abdomen pelvis CT and most likely represents atelectasis, however superimposed pneumonia cannot be excluded in the appropriate clinical context. Small bilateral pleural effusions and adjacent atelectasis Mild scattered bilateral emphysematous changes. Cardiomegaly. Partially visualized left kidney subcapsular hematoma and adjacent fat stranding do not significantly change, however comparison is significantly limited to the incomplete visualization ASSESSMENT/PLAN 59-year-old male past medical history of hypertension, BPH, kidney stones with lithotripsy 3 days prior to admission presented with nausea vomiting and fevers and found to have left subcapsular hematoma. #Left subcapsular hematoma Concern it may be infected Urology on board: No acute intervention needed. Pending re-evaluation ID on board Continue with Zosyn Pain/nausea control #Fevers Likely due to left subcapsular hematoma CT chest does not show obvious etiology of fever, other than bilateral pleural effusions #Pleural effusions BNP 182: no need for echo Continue Zosyn #BPH Continue Flomax #Hypertension Continue amlodipine
--- NOTE | 2019-11-10 14:32 | PN ---
Physical Exam: SUBJECTIVE: Patient seen and examined. No acute events overnight, unclear why Zosyn was switched to Meropenem. PT. denies any pain at the moment and no urinary symptoms. OBJECTIVE: Vital Signs Period Temp Pulse Resp BP Sys/Dutta Pulse Ox Last 24 Hr 98.4 F-99.7 F 70-80 18-20 130-154/62-71 93-97 GENERAL: The patient is awake, alert, and fully oriented, in no acute distress. HEAD: Normal with no signs of trauma. EYES: Sclera anicteric, conjunctiva clear. ENT: Moist mucous membranes. NECK: Trachea midline, full range of motion, supple. LUNGS: Breath sounds equal, clear to auscultation bilaterally, no wheezes, no crackles, no accessory muscle use. HEART: Regular rate and rhythm, S1, S2 without murmur ABDOMEN: Soft, nontender, nondistended, normoactive bowel sounds EXTREMITIES: 2+ dorsal pedal pulses, warm, well-perfused, no calf tenderness, no edema. NEUROLOGICAL: Normal speech, gait not observed. PSYCH: Normal mood, normal affect. SKIN: Warm, dry, normal turgor, Laboratory Results - last 24 hr 11/10/19 11/10/19 08:14 08:14 WBC 12.8 H RBC 3.47 L Hgb 10.0 L Hct 30.2 L MCV 86.9 MCH 28.9 MCHC 33.2 RDW 13.7 Plt Count 408 MPV 7.6 Absolute Neuts (auto) 9.5 H Neutrophils % 74.4 Lymphocytes % 13.8 Monocytes % 9.5 Eosinophils % 1.8 Basophils % 0.5 Nucleated RBC % 0 Sodium 138 Potassium 4.0 Chloride 104 Carbon Dioxide 28 Anion Gap 6 L BUN 15.9 Creatinine 1.0 Est GFR (CKD-EPI)AfAm 93.73 Est GFR (CKD-EPI)NonAf 80.87 Random Glucose 91 Calcium 8.9 B-Natriuretic Peptide 182.2 H Active Medications Generic Name Dose Route Start Last Admin Trade Name Freq PRN Reason Stop Dose Admin Acetaminophen 650 mg 11/07/19 15:48 11/08/19 21:45 Tylenol - PO 650 mg Q6H PRN Administration FEVER Amlodipine Besylate 5 mg 11/07/19 10:00 11/10/19 10:29 Norvasc - PO 5 mg DAILY DERICK Administration Piperacillin Sod/Tazobactam 50 mls @ 100 mls/hr 11/07/19 02:00 11/09/19 18:33 Sod 3.375 gm/ Dextrose IVPB 100 mls/hr Q8H-IV DERICK Administration Protocol Ondansetron HCl 4 mg 11/07/19 02:00 11/07/19 22:49 Zofran Injection IVPUSH 4 mg Q6H PRN Administration NAUSEA Tamsulosin HCl 0.4 mg 11/07/19 08:30 11/10/19 10:29 Flomax - PO 0.4 mg DAILY@0830 DERICK Administration ASSESSMENT/PLAN: Pt. is a 59 y.o. M w/ PMHx. of HTN, BPH, kidney stones (s/p lithotripsy 3 days ago) presents to the ED with complaints of nausea/vomiting, fevers and left sided flank radiating into the groin pain found to have a L subcapsular hematoma on CT scan #Left Subcapsular Renal hematoma CT scan shows L subcapsualr hemaotma w/ perinpehric stranding and free fluid, Rpt. CT a/p showed the same, unchanged. -Urology Consult appreciated --> self limiting hematoma, no acute intervention needed -c/w Zosyn (Day 6 - started 12/05) -ID consult, Chest CT showing atelectasis, some emphysematous changes, cardiomegaly, b/l pleural effusion L>R, cannot r/o superimposed PNA. -Per d/w ID these is concern about hematoma being infected as Pt. with recurrent escalating fevers. If Pt. develops fever of 101 or higher will switch to Meropenem and repeat cultures. -nephro consult appreciated -zofran PRN for nausea -morphine PRN for pain -f/u blood and urine cx--> NTD #BPH c/w Flomax #HTN c/w amlodipine 10mg daily FEN No IVF, encourage PO intake monitor electrolytes Sodium controlled diet Dvt ppx: scds in light of hematoma dispo: monitoring on med-surg Visit type - Emergency Visit Emergency Visit: Yes ED Registration Date: 11/04/19 Care time: The patient presented to the Emergency Department on the above date and was hospitalized for further evaluation of their emergent condition. - New Patient This patient is new to me today: No - Critical Care Critical Care patient: No - Discharge Referral Referred to [facility] Med P.C.: No ATTENDING PHYSICIAN STATEMENT I saw and evaluated the patient. I reviewed the resident's note and discussed the case with the resident. I agree with the resident's findings and plan as documented. SUBJECTIVE: OBJECTIVE: ASSESSMENT AND PLAN:
[2019-11-10] MEDS ORDERED: DEXTROSE 5%-WATER - 50 ML IVPB ONE (16:53)
[2019-11-10] MEDS ORDERED: PIPERACILLIN/TAZOBACTAM 3.375 GM VIAL IVPB ONE (16:53)
[2019-11-10] MEDS: PIPERACILLIN/TAZOB 3.375 GM 3.375 GM in DEXTROSE 5%-WATER - 50 ML IVPB SCH (17:05)
[2019-11-11] MEDS ORDERED: PIPERACILLIN/TAZOBACTAM 3.375 GM VIAL IVPB ONE ×3 (01:32→16:53)
[2019-11-11] MEDS ORDERED: DEXTROSE 5%-WATER - 50 ML IVPB ONE ×3 (01:32→16:53)
[2019-11-11] MEDS: PIPERACILLIN/TAZOB 3.375 GM 3.375 GM in DEXTROSE 5%-WATER - 50 ML IVPB SCH ×3 (02:30→18:41)
--- NOTE | 2019-11-11 07:52 | PN ---
Progress Note, Physician History of Present Illness: pulmonary alert,comfortable,-sob,flank pain improving - Current Medication List Current Medications: Active Medications Acetaminophen (Tylenol -) 650 mg PO Q6H PRN PRN Reason: FEVER Last Admin: 11/08/19 21:45 Dose: 650 mg Documented by: Amlodipine Besylate (Norvasc -) 5 mg PO DAILY DERICK Last Admin: 11/10/19 10:29 Dose: 5 mg Documented by: Piperacillin Sod/Tazobactam (Sod 3.375 gm/ Dextrose) 50 mls @ 100 mls/hr IVPB Q8H-IV DERICK; Protocol Last Admin: 11/11/19 02:30 Dose: 100 mls/hr Documented by: Ondansetron HCl (Zofran Injection) 4 mg IVPUSH Q6H PRN PRN Reason: NAUSEA Last Admin: 11/07/19 22:49 Dose: 4 mg Documented by: Tamsulosin HCl (Flomax -) 0.4 mg PO DAILY@0830 DERICK Last Admin: 11/10/19 10:29 Dose: 0.4 mg Documented by: - Objective Vital Signs: Vital Signs Temperature 99.2 F 11/11/19 06:00 Pulse Rate 67 11/11/19 06:00 Respiratory Rate 18 11/11/19 06:00 Blood Pressure 148/78 11/11/19 06:00 O2 Sat by Pulse Oximetry (%) 98 11/11/19 06:00 Constitutional: Yes: Well Nourished, Calm Eyes: Yes: WNL HENT: Yes: WNL Neck: Yes: WNL Cardiovascular: Yes: Regular Rate and Rhythm, S2, S3 Respiratory: Yes: Diminished (diminished bs left base) Gastrointestinal: Yes: Normal Bowel Sounds, Soft Extremities: Yes: WNL Edema: No Labs: Assessment/Plan ASSESSMENT AND PLAN: Left Nephrolithiasis s/p Recent L ESWL Left Renal Subcapsular Hematoma HTN L basilar atelectasis - pain control - antibiotics per Id - DVT prophylaxis - Incentive spirometer DR MENDEZ
--- NOTE | 2019-11-11 07:54 | CONSULT ---
Consult - text type - Consultation Consultation Note: CC: Left subcapsular hematorma HPI: Patient is comfortable with mininal comlaints of pain. He denies nausea or vomiting. PE VSS: Tmax 99.8/T 99.2 abd- mild left CVAT imp left subcapsular hematoma s/p ESWL plan patient with mild leukocytosis and negative cultures with normal renal function antibiotics as per ID
[2019-11-11 09:03] LABS: BASO % 0.6 % (0-2.0); EOS % 1.5 % (0-4.5); HEMATOCRIT 33.1 % (35.4-49); HEMOGLOBIN 10.9 GM/dL (11.7-16.9); LYMPH % 15.6 % (8-40); MCH 28.6 pg (25.7-33.7); MCHC 32.9 g/dl (32.0-35.9); MEAN CELL VOLUME 86.9 fl (80-96); MEAN PLT VOLUME 7.6 fl (7.5-11.1); MONO % 7.9 % (3.8-10.2); NEUT % 74.4 % (42.8-82.8); PLATELET COUNT 489 K/MM3 (134-434); RBC 3.81 M/mm3 (4.00-5.60); RDW 14.1 % (11.9-15.9)
[2019-11-11 09:28] LABS: BLOOD UREA NITROGEN 20.6 mg/dL (7-18); CALCIUM 8.8 mg/dL (8.5-10.1); CREATININE 1.2 mg/dL (0.55-1.3); MAGNESIUM 2.5 mg/dL (1.8-2.4); PHOSPHOROUS 3.4 mg/dL (2.5-4.9); POTASSIUM 4.3 mmol/L (3.5-5.1)
[2019-11-11] MEDS: amLODIPine BESYLATE 5 MG TABLET (FP) PO SCH (10:03)
[2019-11-11] MEDS: TAMSULOSIN HCL 0.4 MG CAP PO SCH (10:03)
[2019-11-11 12:14] VITALS: BMI 27.9
--- NOTE | 2019-11-11 12:19 | PN ---
Progress Note, Physician History of Present Illness: has remained in 99 temp wbc has increased - Current Medication List Current Medications: Active Medications Acetaminophen (Tylenol -) 650 mg PO Q6H PRN PRN Reason: FEVER Last Admin: 11/08/19 21:45 Dose: 650 mg Documented by: Amlodipine Besylate (Norvasc -) 5 mg PO DAILY DERICK Last Admin: 11/11/19 10:03 Dose: 5 mg Documented by: Piperacillin Sod/Tazobactam (Sod 3.375 gm/ Dextrose) 50 mls @ 100 mls/hr IVPB Q8H-IV DERICK; Protocol Last Admin: 11/11/19 10:03 Dose: 100 mls/hr Documented by: Ondansetron HCl (Zofran Injection) 4 mg IVPUSH Q6H PRN PRN Reason: NAUSEA Last Admin: 11/07/19 22:49 Dose: 4 mg Documented by: Tamsulosin HCl (Flomax -) 0.4 mg PO DAILY@0830 DERICK Last Admin: 11/11/19 10:03 Dose: 0.4 mg Documented by: - Objective Vital Signs: Vital Signs Temperature 98.2 F 11/11/19 10:13 Pulse Rate 79 11/11/19 10:13 Respiratory Rate 20 11/11/19 10:13 Blood Pressure 138/80 11/11/19 10:13 O2 Sat by Pulse Oximetry (%) 95 11/11/19 10:13 Constitutional: Yes: Calm, Mild Distress Cardiovascular: Yes: S1, S2 Respiratory: Yes: Regular, CTA Bilaterally Gastrointestinal: Yes: Normal Bowel Sounds, Soft Musculoskeletal: Yes: WNL Extremities: Yes: WNL Neurological: Yes: Alert, Oriented Psychiatric: Yes: Alert, Oriented Labs: CBC, BMP 11/11/19 08:26 11/11/19 08:26 INR, PTT INR 1.25 (0.83-1.09) H 11/05/19 07:52 Assessment/Plan 59 y/0 male with PMH of Htn. kidney stones (s/p lithotripsy 3 days ago) presents to the ED with complaints of nausea/vomiting, fevers and left sided flank radiating into the groin pain found to have a L subcapsular hematoma on CT scan Left Subcapsular hematoma HTN leukocytosis fever plan worrisome why is his wbc rising will see what the wbc shows tomorrow]
--- NOTE | 2019-11-11 12:45 | PN ---
Teaching Attending Note Name of Resident: Aleyda Britton ATTENDING PHYSICIAN STATEMENT I saw and evaluated the patient. I reviewed the resident's note and discussed the case with the resident. I agree with the resident's findings and plan as documented. SUBJECTIVE: Seen and examined at bedside. Tmax overnight 99.8. White count is increasing as well as platelets. OBJECTIVE Last Vital Signs Temp Pulse Resp BP Pulse Ox 98.2 F 79 20 138/80 95 11/11/19 10:13 11/11/19 10:13 11/11/19 10:13 11/11/19 10:13 11/11/19 10:13 PE: Per resident note Labs/Imaging: reviewed Imaging: CT chest: focal left basal opacity is not significant change compared to partially visualized findings on prior abdomen pelvis CT and most likely represents atelectasis, however superimposed pneumonia cannot be excluded in the appropriate clinical context. Small bilateral pleural effusions and adjacent atelectasis Mild scattered bilateral emphysematous changes. Cardiomegaly. Partially visualized left kidney subcapsular hematoma and adjacent fat stranding do not significantly change, however comparison is significantly limited to the incomplete visualization ASSESSMENT/PLAN 59-year-old male past medical history of hypertension, BPH, kidney stones with lithotripsy 3 days prior to admission presented with nausea vomiting and fevers and found to have left subcapsular hematoma. #Left subcapsular hematoma Concern it may be infected Urology on board: No acute intervention needed. Pending re-evaluation ID on board Continue with Zosyn Pain/nausea control #Fevers Likely due to left subcapsular hematoma CT chest does not show obvious etiology of fever, other than bilateral pleural effusions White count and platelets increasing #Pleural effusions BNP 182: no need for echo Continue Zosyn #BPH Continue Flomax #Hypertension Continue amlodipine
--- NOTE | 2019-11-11 14:58 | PN ---
Physical Exam: SUBJECTIVE: Patient seen and examined at bedside. No acute events overnight. Pt states he slept well. Pain is minimal. Tolerating PO diet. OBJECTIVE: Vital Signs Period Temp Pulse Resp BP Sys/Dutta Pulse Ox Last 24 Hr 98.2 F-99.8 F 67-86 16-20 138-148/71-80 95-98 GENERAL: The patient is awake, alert, and fully oriented, in no acute distress. HEAD: Normal with no signs of trauma. EYES: Sclera anicteric, conjunctiva clear. ENT: Moist mucous membranes. NECK: Trachea midline, full range of motion, supple. LUNGS: Breath sounds equal, clear to auscultation bilaterally, no wheezes, no crackles, no accessory muscle use. HEART: Regular rate and rhythm, S1, S2 without murmur ABDOMEN: Soft, nontender, nondistended, normoactive bowel sounds EXTREMITIES: 2+ dorsal pedal pulses, warm, well-perfused, no calf tenderness, no edema. NEUROLOGICAL: Normal speech, gait not observed. PSYCH: Normal mood, normal affect. SKIN: Warm, dry, normal turgor, Laboratory Results - last 24 hr 11/11/19 11/11/19 08:26 08:26 WBC 14.0 H RBC 3.81 L Hgb 10.9 L Hct 33.1 L MCV 86.9 MCH 28.6 MCHC 32.9 RDW 14.1 Plt Count 489 H MPV 7.6 Absolute Neuts (auto) 10.4 H Neutrophils % 74.4 Lymphocytes % 15.6 Monocytes % 7.9 Eosinophils % 1.5 Basophils % 0.6 Nucleated RBC % 1 H Sodium 140 Potassium 4.3 Chloride 106 Carbon Dioxide 28 Anion Gap 6 L BUN 20.6 H Creatinine 1.2 Est GFR (CKD-EPI)AfAm 75.19 Est GFR (CKD-EPI)NonAf 64.87 Random Glucose 87 Calcium 8.8 Phosphorus 3.4 Magnesium 2.5 H Active Medications Generic Name Dose Route Start Last Admin Trade Name Freq PRN Reason Stop Dose Admin Acetaminophen 650 mg 11/07/19 15:48 11/08/19 21:45 Tylenol - PO 650 mg Q6H PRN Administration FEVER Amlodipine Besylate 5 mg 11/07/19 10:00 11/11/19 10:03 Norvasc - PO 5 mg DAILY DERICK Administration Piperacillin Sod/Tazobactam 50 mls @ 100 mls/hr 11/07/19 02:00 11/11/19 10:03 Sod 3.375 gm/ Dextrose IVPB 100 mls/hr Q8H-IV DERICK Administration Protocol Ondansetron HCl 4 mg 11/07/19 02:00 11/07/19 22:49 Zofran Injection IVPUSH 4 mg Q6H PRN Administration NAUSEA Tamsulosin HCl 0.4 mg 11/07/19 08:30 11/11/19 10:03 Flomax - PO 0.4 mg DAILY@0830 DERICK Administration ASSESSMENT/PLAN: 59M w/ PMHx. of HTN, BPH, kidney stones (s/p lithotripsy 3 days ago) presents to the ED with complaints of nausea/vomiting, fevers and left sided flank radiating into the groin pain found to have a L subcapsular hematoma on CT scan. #Left Subcapsular Renal hematoma -CT scan shows L subcapsualr hematoma w/ perinephric stranding and free fluid, Rpt. CT a/p showed the same, unchanged. -Urology Consult appreciated --> self limiting hematoma, no acute intervention needed -c/w Zosyn (Day 7 - started 12/05) -Per ID, watch off IV abx for now; WBC trending up today, will repeat CBC in AM and d/w need for abx tx -nephro consult appreciated -zofran PRN for nausea -morphine PRN for pain -BCx/UCx neg #BPH c/w Flomax #HTN c/w amlodipine 10mg daily FEN No IVF, encourage PO intake monitor electrolytes Sodium controlled diet Dvt ppx: scds in light of hematoma dispo: monitoring on med-surg Visit type - Emergency Visit Emergency Visit: Yes ED Registration Date: 11/04/19 Care time: The patient presented to the Emergency Department on the above date and was hospitalized for further evaluation of their emergent condition. - New Patient This patient is new to me today: Yes Date on this admission: 11/11/19 - Critical Care Critical Care patient: No - Discharge Referral Referred to [facility] Med P.C.: No ATTENDING PHYSICIAN STATEMENT I saw and evaluated the patient. I reviewed the resident's note and discussed the case with the resident. I agree with the resident's findings and plan as documented. SUBJECTIVE: OBJECTIVE: ASSESSMENT AND PLAN:
--- NOTE | 2019-11-11 16:29 | PN ---
Progress Note, Physician History of Present Illness: Pt seen and examined at bedside. He is awake and alert. he feels that his pain has resolved. - Current Medication List Current Medications: Active Medications Acetaminophen (Tylenol -) 650 mg PO Q6H PRN PRN Reason: FEVER Last Admin: 11/08/19 21:45 Dose: 650 mg Documented by: Amlodipine Besylate (Norvasc -) 5 mg PO DAILY DERICK Last Admin: 11/11/19 10:03 Dose: 5 mg Documented by: Piperacillin Sod/Tazobactam (Sod 3.375 gm/ Dextrose) 50 mls @ 100 mls/hr IVPB Q8H-IV DERICK; Protocol Last Admin: 11/11/19 10:03 Dose: 100 mls/hr Documented by: Ondansetron HCl (Zofran Injection) 4 mg IVPUSH Q6H PRN PRN Reason: NAUSEA Last Admin: 11/07/19 22:49 Dose: 4 mg Documented by: Tamsulosin HCl (Flomax -) 0.4 mg PO DAILY@0830 [facility] Last Admin: 11/11/19 10:03 Dose: 0.4 mg Documented by: - Objective Vital Signs: Vital Signs Temperature 98.4 F 11/11/19 14:00 Pulse Rate 77 11/11/19 14:00 Respiratory Rate 20 11/11/19 14:00 Blood Pressure 139/67 11/11/19 14:00 O2 Sat by Pulse Oximetry (%) 95 11/11/19 14:00 Constitutional: Yes: Calm Eyes: Yes: Conjunctiva Clear HENT: Yes: Atraumatic Neck: Yes: Supple Cardiovascular: Yes: S1, S2 Respiratory: Yes: CTA Bilaterally Gastrointestinal: Yes: Soft Genitourinary: Yes: WNL Musculoskeletal: Yes: WNL Edema: No Neurological: Yes: Oriented Psychiatric: Yes: Oriented Labs: CBC, BMP 11/11/19 08:26 11/11/19 08:26 INR, PTT INR 1.25 (0.83-1.09) H 11/05/19 07:52 Problem List - Problems (1) Abdominal pain Code(s): R10.9 - UNSPECIFIED ABDOMINAL PAIN Qualifiers: Abdominal location: left lower quadrant Qualified Code(s): R10.32 - Left lower quadrant pain (2) Renal hematoma Code(s): S37.019A - MINOR CONTUSION OF UNSPECIFIED KIDNEY, INITIAL ENCOUNTER Qualifiers: Encounter type: initial encounter Laterality: left Qualified Code(s): S37.012A - Minor contusion of left kidney, initial encounter Assessment/Plan Current Medications Generic Name Dose Route Start Last Admin Trade Name Freq PRN Reason Stop Dose Admin Acetaminophen 650 mg 11/07/19 15:48 11/08/19 21:45 Tylenol - PO 650 mg Q6H PRN Administration FEVER Amlodipine Besylate 5 mg 11/07/19 10:00 11/11/19 10:03 Norvasc - PO 5 mg DAILY DERICK Administration Piperacillin Sod/Tazobactam 50 mls @ 100 mls/hr 11/07/19 02:00 11/11/19 10:03 Sod 3.375 gm/ Dextrose IVPB 100 mls/hr Q8H-IV DERICK Administration Protocol Ondansetron HCl 4 mg 11/07/19 02:00 11/07/19 22:49 Zofran Injection IVPUSH 4 mg Q6H PRN Administration NAUSEA Tamsulosin HCl 0.4 mg 11/07/19 08:30 11/11/19 10:03 Flomax - PO 0.4 mg DAILY@0830 EDRICK Administration Impression 1. shameka improving 2. nephrolithiasis 3. left renal sub-capsular hematoma 4. fever Plan - cont to monitor renal function - pain is resolved - monitor for fever - cont abx - urology follow up
[2019-11-12] MEDS ORDERED: DEXTROSE 5%-WATER - 50 ML IVPB ONE ×2 (01:00→09:39)
[2019-11-12] MEDS ORDERED: PIPERACILLIN/TAZOBACTAM 3.375 GM VIAL IVPB ONE ×2 (01:00→09:39)
[2019-11-12] MEDS: PIPERACILLIN/TAZOB 3.375 GM 3.375 GM in DEXTROSE 5%-WATER - 50 ML IVPB SCH ×2 (02:21→09:52)
--- NOTE | 2019-11-12 08:00 | PN ---
Progress Note, Physician History of Present Illness: PULMONARY ALERT,COMFORTABLE,-SOB,-ABD PAIN. - Current Medication List Current Medications: Active Medications Acetaminophen (Tylenol -) 650 mg PO Q6H PRN PRN Reason: FEVER Last Admin: 11/08/19 21:45 Dose: 650 mg Documented by: Amlodipine Besylate (Norvasc -) 5 mg PO DAILY [facility] Last Admin: 11/11/19 10:03 Dose: 5 mg Documented by: Piperacillin Sod/Tazobactam (Sod 3.375 gm/ Dextrose) 50 mls @ 100 mls/hr IVPB Q8H-IV [facility]; Protocol Last Admin: 11/12/19 02:21 Dose: 100 mls/hr Documented by: Ondansetron HCl (Zofran Injection) 4 mg IVPUSH Q6H PRN PRN Reason: NAUSEA Last Admin: 11/07/19 22:49 Dose: 4 mg Documented by: Tamsulosin HCl (Flomax -) 0.4 mg PO DAILY@0830 [facility] Last Admin: 11/11/19 10:03 Dose: 0.4 mg Documented by: - Objective Vital Signs: Vital Signs Temperature 99.1 F 11/12/19 06:00 Pulse Rate 68 11/12/19 06:00 Respiratory Rate 20 11/12/19 06:00 Blood Pressure 140/78 11/12/19 06:00 O2 Sat by Pulse Oximetry (%) 98 11/12/19 06:00 Constitutional: Yes: Well Nourished, Calm Eyes: Yes: WNL HENT: Yes: WNL Neck: Yes: WNL Cardiovascular: Yes: Regular Rate and Rhythm, S1, S2 Respiratory: Yes: CTA Bilaterally Gastrointestinal: Yes: Normal Bowel Sounds, Soft Extremities: Yes: WNL Edema: No Labs: Assessment/Plan ASSESSMENT AND PLAN: Left Nephrolithiasis s/p Recent L ESWL Left Renal Subcapsular Hematoma HTN L basilar atelectasis - pain control - antibiotics per Id - DVT prophylaxis - Incentive spirometer DR MENDEZ
[2019-11-12 09:21] LABS: BLOOD UREA NITROGEN 22.4 mg/dL (7-18); CALCIUM 9.4 mg/dL (8.5-10.1); CREATININE 1.2 mg/dL (0.55-1.3); POTASSIUM 4.7 mmol/L (3.5-5.1)
[2019-11-12 09:44] LABS: HEMATOCRIT 34.2 % (35.4-49); HEMOGLOBIN 11.2 GM/dL (11.7-16.9); MCH 28.8 pg (25.7-33.7); MCHC 32.8 g/dl (32.0-35.9); MEAN CELL VOLUME 87.7 fl (80-96); MEAN PLT VOLUME 7.8 fl (7.5-11.1); PLATELET COUNT 580 K/MM3 (134-434); WHITE BLOOD COUNT 16.5 K/mm3 (4.0-10.0)
[2019-11-12] MEDS: TAMSULOSIN HCL 0.4 MG CAP PO SCH (09:52)
[2019-11-12] MEDS: amLODIPine BESYLATE 5 MG TABLET (FP) PO SCH (09:52)
--- NOTE | 2019-11-12 12:32 | PN ---
Progress Note, Physician History of Present Illness: still with pain clinically looks better - Current Medication List Current Medications: Active Medications Acetaminophen (Tylenol -) 650 mg PO Q6H PRN PRN Reason: FEVER Last Admin: 11/08/19 21:45 Dose: 650 mg Documented by: Amlodipine Besylate (Norvasc -) 5 mg PO DAILY [facility] Last Admin: 11/12/19 09:52 Dose: 5 mg Documented by: Piperacillin Sod/Tazobactam (Sod 3.375 gm/ Dextrose) 50 mls @ 100 mls/hr IVPB Q8H-IV [facility]; Protocol Last Admin: 11/12/19 09:52 Dose: 100 mls/hr Documented by: Ondansetron HCl (Zofran Injection) 4 mg IVPUSH Q6H PRN PRN Reason: NAUSEA Last Admin: 11/07/19 22:49 Dose: 4 mg Documented by: Tamsulosin HCl (Flomax -) 0.4 mg PO DAILY@0830 [facility] Last Admin: 11/12/19 09:52 Dose: 0.4 mg Documented by: - Objective Vital Signs: Vital Signs Temperature 98.5 F 11/12/19 09:58 Pulse Rate 73 11/12/19 09:58 Respiratory Rate 18 11/12/19 09:58 Blood Pressure 147/70 11/12/19 09:58 O2 Sat by Pulse Oximetry (%) 97 11/12/19 09:58 Constitutional: Yes: No Distress, Calm Cardiovascular: Yes: S1, S2 Respiratory: Yes: Regular, CTA Bilaterally Gastrointestinal: Yes: Soft, Hypoactive Bowel Sounds Musculoskeletal: Yes: WNL Extremities: Yes: WNL Neurological: Yes: Alert, Oriented Psychiatric: Yes: Alert, Oriented Labs: CBC, BMP 11/12/19 08:07 11/12/19 08:07 INR, PTT INR 1.25 (0.83-1.09) H 11/05/19 07:52 Assessment/Plan 59 y/0 male with PMH of Htn. kidney stones (s/p lithotripsy 3 days ago) presents to the ED with complaints of nausea/vomiting, fevers and left sided flank radiating into the groin pain found to have a L subcapsular hematoma on CT scan Left Subcapsular hematoma HTN leukocytosis fever plan wbc still increasing i am going to change abx to meropenam patient should get a repeat ct scan of abd rest as per te team
--- NOTE | 2019-11-12 13:13 | PN ---
Progress Note, Physician History of Present Illness: Pt seen and examined at bedside. Pain has resolved. He denies fevers or chills. - Current Medication List Current Medications: Active Medications Acetaminophen (Tylenol -) 650 mg PO Q6H PRN PRN Reason: FEVER Last Admin: 11/08/19 21:45 Dose: 650 mg Documented by: Amlodipine Besylate (Norvasc -) 5 mg PO DAILY [facility] Last Admin: 11/12/19 09:52 Dose: 5 mg Documented by: Meropenem 1 gm/ Dextrose 100 mls @ 200 mls/hr IVPB Q8H-IV [facility] Ondansetron HCl (Zofran Injection) 4 mg IVPUSH Q6H PRN PRN Reason: NAUSEA Last Admin: 11/07/19 22:49 Dose: 4 mg Documented by: Tamsulosin HCl (Flomax -) 0.4 mg PO DAILY@0830 [facility] Last Admin: 11/12/19 09:52 Dose: 0.4 mg Documented by: - Objective Vital Signs: Vital Signs Temperature 98.5 F 11/12/19 09:58 Pulse Rate 73 11/12/19 09:58 Respiratory Rate 18 11/12/19 09:58 Blood Pressure 147/70 11/12/19 09:58 O2 Sat by Pulse Oximetry (%) 97 11/12/19 09:58 Constitutional: Yes: Calm Eyes: Yes: Conjunctiva Clear HENT: Yes: Atraumatic Neck: Yes: Supple Cardiovascular: Yes: S1, S2 Respiratory: Yes: CTA Bilaterally Gastrointestinal: Yes: Normal Bowel Sounds, Soft Genitourinary: Yes: WNL. No: CVA Tenderness - Left, CVA Tenderness - Right Musculoskeletal: Yes: WNL Edema: No Neurological: Yes: Oriented Psychiatric: Yes: Oriented Labs: CBC, BMP 11/12/19 08:07 11/12/19 08:07 INR, PTT INR 1.25 (0.83-1.09) H 11/05/19 07:52 Problem List - Problems (1) Abdominal pain Code(s): R10.9 - UNSPECIFIED ABDOMINAL PAIN Qualifiers: Abdominal location: left lower quadrant Qualified Code(s): R10.32 - Left lower quadrant pain (2) Renal hematoma Code(s): S37.019A - MINOR CONTUSION OF UNSPECIFIED KIDNEY, INITIAL ENCOUNTER Qualifiers: Encounter type: initial encounter Laterality: left Qualified Code(s): S37.012A - Minor contusion of left kidney, initial encounter Assessment/Plan Current Medications Generic Name Dose Route Start Last Admin Trade Name Freq PRN Reason Stop Dose Admin Acetaminophen 650 mg 11/07/19 15:48 11/08/19 21:45 Tylenol - PO 650 mg Q6H PRN Administration FEVER Amlodipine Besylate 5 mg 11/07/19 10:00 11/12/19 09:52 Norvasc - PO 5 mg DAILY [facility] Administration Meropenem 1 gm/ Dextrose 100 mls @ 200 mls/hr 11/12/19 12:45 IVPB Q8H-IV [facility] Ondansetron HCl 4 mg 11/07/19 02:00 11/07/19 22:49 Zofran Injection IVPUSH 4 mg Q6H PRN Administration NAUSEA Tamsulosin HCl 0.4 mg 11/07/19 08:30 11/12/19 09:52 Flomax - PO 0.4 mg DAILY@0830 [facility] Administration Impression 1. shameka improving 2. nephrolithiasis 3. left renal sub-capsular hematoma 4. fever Plan - renal function stable - avoid nsaids - monitor for fevers - urology follow up - pain has resolved
--- NOTE | 2019-11-12 13:13 | PN ---
Teaching Attending Note Name of Resident: Indy Torres ATTENDING PHYSICIAN STATEMENT I saw and evaluated the patient. I reviewed the resident's note and discussed the case with the resident. I agree with the resident's findings and plan as documented. SUBJECTIVE: Seen and examined at bedside. White count continues to increase. Antibiotics upgraded to meropenem. Will repeat CT abdomen pelvis with contrast, and urology asked to reassess the patient. OBJECTIVE Last Vital Signs Temp Pulse Resp BP Pulse Ox 98.5 F 73 18 147/70 97 11/12/19 09:58 11/12/19 09:58 11/12/19 09:58 11/12/19 09:58 11/12/19 09:58 PE: Per resident note Labs/Imaging: reviewed Imaging: CT chest: focal left basal opacity is not significant change compared to partially visualized findings on prior abdomen pelvis CT and most likely represents atelectasis, however superimposed pneumonia cannot be excluded in the appropriate clinical context. Small bilateral pleural effusions and adjacent atelectasis Mild scattered bilateral emphysematous changes. Cardiomegaly. Partially visualized left kidney subcapsular hematoma and adjacent fat stranding do not significantly change, however comparison is significantly limited to the incomplete visualization ASSESSMENT/PLAN 59-year-old male past medical history of hypertension, BPH, kidney stones with lithotripsy 3 days prior to admission presented with nausea vomiting and fevers and found to have left subcapsular hematoma. #Left subcapsular hematoma Concern it may be infected. White count continues to increase. Antibiotics upgraded to meropenem. Will repeat CT abdomen pelvis with contrast, and urology asked to reassess the patient. Urology on board: No acute intervention needed. Pending re-evaluation ID on board meropenem Pain/nausea control #Fevers Likely due to left subcapsular hematoma CT chest does not show obvious etiology of fever, other than bilateral pleural effusions White count and platelets increasing #Pleural effusions BNP 182: no need for echo #BPH Continue Flomax #Hypertension Continue amlodipine
[2019-11-12] MEDS ORDERED: MEROPENEM 1 GM VIAL (RESTRICTED TO ID) IVPB ONE ×2 (14:05→18:34)
[2019-11-12] MEDS ORDERED: DEXTROSE 5%-WATER 100 ML IVPB ONE ×2 (14:05→18:34)
[2019-11-12] MEDS: MEROPENEM 1 GM in DEXTROSE 5%-WATER 100 ML IVPB SCH ×2 (14:11→19:06)
--- NOTE | 2019-11-12 14:42 | PN ---
Physical Exam: SUBJECTIVE: Patient seen and examined this AM. Ambulating around the room in minimal discomfort. No new complaints. OBJECTIVE: Vital Signs Period Temp Pulse Resp BP Sys/Dutta Pulse Ox Last 24 Hr 98.5 F-99.6 F 68-77 18-20 138-151/70-78 94-98 GENERAL: A&Ox3, NAD HEAD: NCAT EYES: EOMI ENT: Moist mucous membranes. NECK: Supple. LUNGS: CTAB, no wheezes, no crackles HEART: Regular rate and rhythm, S1, S2 ABDOMEN: Soft, nontender, nondistended, + bowel sounds EXTREMITIES: no edema SKIN: Warm, dry Laboratory Last Values WBC 16.5 K/mm3 (4.0-10.0) H 11/12/19 08:07 RBC 3.90 M/mm3 (4.00-5.60) L 11/12/19 08:07 Hgb 11.2 GM/dL (11.7-16.9) L 11/12/19 08:07 Hct 34.2 % (35.4-49) L 11/12/19 08:07 MCV 87.7 fl (80-96) 11/12/19 08:07 MCH 28.8 pg (25.7-33.7) 11/12/19 08:07 MCHC 32.8 g/dl (32.0-35.9) 11/12/19 08:07 RDW 14.0 % (11.9-15.9) 11/12/19 08:07 Plt Count 580 K/MM3 (134-434) H 11/12/19 08:07 MPV 7.8 fl (7.5-11.1) 11/12/19 08:07 Absolute Neuts (auto) 10.4 K/mm3 (1.5-8.0) H 11/11/19 08:26 Neutrophils % 74.4 % (42.8-82.8) 11/11/19 08:26 Lymphocytes % 15.6 % (8-40) 11/11/19 08:26 Monocytes % 7.9 % (3.8-10.2) 11/11/19 08:26 Eosinophils % 1.5 % (0-4.5) 11/11/19 08:26 Basophils % 0.6 % (0-2.0) 11/11/19 08:26 Nucleated RBC % 1 % (0-0) H 11/11/19 08:26 PT with INR 14.80 SEC (9.7-13.0) H 11/05/19 07:52 INR 1.25 (0.83-1.09) H 11/05/19 07:52 PTT (Actin FS) 28.1 SECONDS (25.2-36.5) 11/05/19 07:52 Sodium 138 mmol/L (136-145) 11/12/19 08:07 Potassium 4.7 mmol/L (3.5-5.1) 11/12/19 08:07 Chloride 105 mmol/L (98-107) 11/12/19 08:07 Carbon Dioxide 28 mmol/L (21-32) 11/12/19 08:07 Anion Gap 5 MMOL/L (8-16) L 11/12/19 08:07 BUN 22.4 mg/dL (7-18) H 11/12/19 08:07 Creatinine 1.2 mg/dL (0.55-1.3) 11/12/19 08:07 Est GFR (CKD-EPI)AfAm 75.19 11/12/19 08:07 Est GFR (CKD-EPI)NonAf 64.87 11/12/19 08:07 Random Glucose 92 mg/dL (74-106) 11/12/19 08:07 Lactic Acid 0.9 mmol/L (0.4-2.0) 11/05/19 17:50 Calcium 9.4 mg/dL (8.5-10.1) 11/12/19 08:07 Phosphorus 3.4 mg/dL (2.5-4.9) 11/11/19 08:26 Magnesium 2.5 mg/dL (1.8-2.4) H 11/11/19 08:26 Total Bilirubin 0.7 mg/dL (0.2-1) 11/09/19 07:20 AST 35 U/L (15-37) 11/09/19 07:20 ALT 49 U/L (13-61) 11/09/19 07:20 Alkaline Phosphatase 40 U/L (45-117) L 11/09/19 07:20 Creatine Kinase 71 U/L (26-308) 11/05/19 17:36 B-Natriuretic Peptide 182.2 pg/ml (5-125) H 11/10/19 08:14 Total Protein 6.6 g/dl (6.4-8.2) 11/09/19 07:20 Albumin 2.8 g/dl (3.4-5.0) L 11/09/19 07:20 Lipase 120 U/L (73-393) 11/04/19 12:00 Urine Color Yellow 11/04/19 12:00 Urine Appearance Clear 11/04/19 12:00 Urine pH 6.5 (5.0-8.0) 11/04/19 12:00 Ur Specific [place] 1.020 (1.010-1.035) 11/04/19 12:00 Urine Protein Trace (NEGATIVE) 11/04/19 12:00 Urine Glucose (UA) Negative (NEGATIVE) 11/04/19 12:00 Urine Ketones Negative (NEGATIVE) 11/04/19 12:00 Urine Blood 1+ (NEGATIVE) H 11/04/19 12:00 Urine Nitrite Negative (NEGATIVE) 11/04/19 12:00 Urine Bilirubin Negative (NEGATIVE) 11/04/19 12:00 Urine Urobilinogen 2.0 mg/dL (0.2-1.0) 11/04/19 12:00 Ur Leukocyte Esterase Trace (NEGATIVE) 11/04/19 12:00 Urine WBC (Auto) 6 /uL (0-25.8) 11/04/19 12:00 Urine RBC (Auto) 55 /uL (0-23.9) 11/04/19 12:00 Urine Casts (Auto) 1 /uL (0-3.1) 11/04/19 12:00 U Epithel Cells (Auto) 3 /uL (0-25.1) 11/04/19 12:00 Urine Bacteria (Auto) 8 /uL (0-1359) 11/04/19 12:00 COVID-19 (LETTY) Not detected (Not Detected) 11/04/19 23:28 Blood Type B POSITIVE 11/05/19 17:36 Antibody Screen Negative 11/05/19 17:36 Microbiology 11/04/19 18:00 Blood - Peripheral Venous Blood Culture - Final NO GROWTH AFTER 5 DAYS INCUBATION 11/04/19 18:00 Blood - Peripheral Venous Blood Culture - Final NO GROWTH AFTER 5 DAYS INCUBATION 11/05/19 01:00 Urine - Urine Clean Catch Urine Culture - Final NO GROWTH OBTAINED 11/04/19 12:00 Urine - Urine Clean Catch Urine Culture - Final NO GROWTH OBTAINED Active Medications Acetaminophen (Tylenol -) 650 mg PO Q6H PRN PRN Reason: FEVER Last Admin: 11/08/19 21:45 Dose: 650 mg Documented by: Amlodipine Besylate (Norvasc -) 5 mg PO DAILY [facility] Last Admin: 11/12/19 09:52 Dose: 5 mg Documented by: Meropenem 1 gm/ Dextrose 100 mls @ 200 mls/hr IVPB Q8H-IV [facility] Last Admin: 11/12/19 14:11 Dose: 200 mls/hr Documented by: Ondansetron HCl (Zofran Injection) 4 mg IVPUSH Q6H PRN PRN Reason: NAUSEA Last Admin: 11/07/19 22:49 Dose: 4 mg Documented by: Tamsulosin HCl (Flomax -) 0.4 mg PO DAILY@0830 [facility] Last Admin: 11/12/19 09:52 Dose: 0.4 mg Documented by: ASSESSMENT/PLAN: 59M w/ PMHx. of HTN, BPH, kidney stones (s/p lithotripsy 3 days prior to admission) presented with fevers and left sided flank pain, admitted for L subcapsular hematoma. #Left Subcapsular Renal hematoma -s/p lithotripsy -WBC count continues to rise -ABx upescalated to Meropenem (Started on 12/05) -Case discussed with urology who agree's with repeating scan and monitoring abx response -Follow Repeat CT; Will need to discuss findings with Dr. Fuentes ([phone]) -nephro consult appreciated -zofran PRN for nausea -morphine PRN for pain #BPH c/w Flomax #HTN c/w amlodipine 10mg daily FEN LR @ 50 Replete lytes PRN Sodium controlled diet Dvt ppx: scds in light of hematoma dispo: monitoring on med-surg Visit type - Emergency Visit Emergency Visit: Yes ED Registration Date: 11/04/19 Care time: The patient presented to the Emergency Department on the above date and was hospitalized for further evaluation of their emergent condition. - New Patient This patient is new to me today: Yes Date on this admission: 11/12/19 - Critical Care Critical Care patient: No - Discharge Referral Referred to [facility] No ATTENDING PHYSICIAN STATEMENT I saw and evaluated the patient. I reviewed the resident's note and discussed the case with the resident. I agree with the resident's findings and plan as documented. SUBJECTIVE: OBJECTIVE: ASSESSMENT AND PLAN:
[2019-11-12] MEDS: LACTATED RINGERS SOLUTION 1,000 ML/1,000 ML INFUS.BAG IV SCH (19:05)
[2019-11-13] MEDS ORDERED: MEROPENEM 1 GM VIAL (RESTRICTED TO ID) IVPB ONE ×3 (01:07→18:21)
[2019-11-13] MEDS ORDERED: DEXTROSE 5%-WATER 100 ML IVPB ONE ×3 (01:07→18:21)
[2019-11-13] MEDS: MEROPENEM 1 GM in DEXTROSE 5%-WATER 100 ML IVPB SCH ×3 (01:36→18:43)
--- NOTE | 2019-11-13 06:39 | PN ---
Progress Note, Physician History of Present Illness: PULMONARY ALERT,COMFORTABLE,-SOB,-ABD PAIN - Current Medication List Current Medications: Active Medications Acetaminophen (Tylenol -) 650 mg PO Q6H PRN PRN Reason: FEVER Last Admin: 11/08/19 21:45 Dose: 650 mg Documented by: Amlodipine Besylate (Norvasc -) 5 mg PO DAILY [facility] Last Admin: 11/12/19 09:52 Dose: 5 mg Documented by: Meropenem 1 gm/ Dextrose 100 mls @ 200 mls/hr IVPB Q8H-IV [facility] Last Admin: 11/13/19 01:36 Dose: 200 mls/hr Documented by: Lactated Ringer's (Lactated Ringers Solution) 1,000 ml in 1,000 mls @ 50 mls/hr IV ASDIR [facility] Last Admin: 11/12/19 19:05 Dose: 50 mls/hr Documented by: Ondansetron HCl (Zofran Injection) 4 mg IVPUSH Q6H PRN PRN Reason: NAUSEA Last Admin: 11/07/19 22:49 Dose: 4 mg Documented by: Tamsulosin HCl (Flomax -) 0.4 mg PO DAILY@0830 [facility] Last Admin: 11/12/19 09:52 Dose: 0.4 mg Documented by: - Objective Vital Signs: Vital Signs Temperature 99.4 F 11/13/19 06:00 Pulse Rate 70 11/13/19 06:00 Respiratory Rate 20 11/13/19 06:00 Blood Pressure 129/74 11/13/19 06:00 O2 Sat by Pulse Oximetry (%) 97 11/13/19 06:00 Constitutional: Yes: Well Nourished, Calm Eyes: Yes: WNL HENT: Yes: WNL Neck: Yes: WNL Cardiovascular: Yes: Regular Rate and Rhythm, S1, S2 Respiratory: Yes: CTA Bilaterally Gastrointestinal: Yes: Normal Bowel Sounds, Soft Extremities: Yes: WNL Edema: No Labs: CBC, BMP Laboratory Tests 11/13/19 08:40 WBC 14.7 H RBC 3.70 L Hgb 10.6 L Hct 32.0 L Plt Count 547 H Assessment/Plan ASSESSMENT AND PLAN: Left Nephrolithiasis s/p Recent L ESWL Left Renal Subcapsular Hematoma HTN L basilar atelectasis - pain control - antibiotics per Id - DVT prophylaxis - Incentive spirometer - review ct abd DR MENDEZ
[2019-11-13 08:59] LABS: BASO % 0.6 % (0-2.0); EOS % 1.5 % (0-4.5); HEMOGLOBIN 10.6 GM/dL (11.7-16.9); LYMPH % 16.1 % (8-40); MCH 28.7 pg (25.7-33.7); MCHC 33.3 g/dl (32.0-35.9); MEAN CELL VOLUME 86.4 fl (80-96); MEAN PLT VOLUME 7.4 fl (7.5-11.1); MONO % 6.6 % (3.8-10.2); NEUT % 75.2 % (42.8-82.8); PLATELET COUNT 547 K/MM3 (134-434); RDW 14.1 % (11.9-15.9); WHITE BLOOD COUNT 14.7 K/mm3 (4.0-10.0)
[2019-11-13 09:25] LABS: ALBUMIN 3.1 g/dl (3.4-5.0); BILIRUBIN,TOTAL 0.7 mg/dL (0.2-1); BLOOD UREA NITROGEN 18.3 mg/dL (7-18); CALCIUM 8.7 mg/dL (8.5-10.1); CREATININE 1.1 mg/dL (0.55-1.3); MAGNESIUM 2.5 mg/dL (1.8-2.4); PHOSPHOROUS 3.3 mg/dL (2.5-4.9); POTASSIUM 4.3 mmol/L (3.5-5.1)
[2019-11-13] MEDS: amLODIPine BESYLATE 5 MG TABLET (FP) PO SCH (09:39)
[2019-11-13] MEDS: TAMSULOSIN HCL 0.4 MG CAP PO SCH (09:39)
--- NOTE | 2019-11-13 11:37 | PN ---
Progress Note, Physician History of Present Illness: stable no new issues wbc has trended down - Current Medication List Current Medications: Active Medications Acetaminophen (Tylenol -) 650 mg PO Q6H PRN PRN Reason: FEVER Last Admin: 11/08/19 21:45 Dose: 650 mg Documented by: Amlodipine Besylate (Norvasc -) 5 mg PO DAILY [facility] Last Admin: 11/13/19 09:39 Dose: 5 mg Documented by: Meropenem 1 gm/ Dextrose 100 mls @ 200 mls/hr IVPB Q8H-IV [facility] Last Admin: 11/13/19 09:39 Dose: 200 mls/hr Documented by: Lactated Ringer's (Lactated Ringers Solution) 1,000 ml in 1,000 mls @ 50 mls/hr IV ASDIR [facility] Last Admin: 11/12/19 19:05 Dose: 50 mls/hr Documented by: Ondansetron HCl (Zofran Injection) 4 mg IVPUSH Q6H PRN PRN Reason: NAUSEA Last Admin: 11/07/19 22:49 Dose: 4 mg Documented by: Tamsulosin HCl (Flomax -) 0.4 mg PO DAILY@0830 [facility] Last Admin: 11/13/19 09:39 Dose: 0.4 mg Documented by: - Objective Vital Signs: Vital Signs Temperature 98.9 F 11/13/19 09:54 Pulse Rate 69 11/13/19 09:54 Respiratory Rate 18 11/13/19 09:54 Blood Pressure 149/64 11/13/19 09:54 O2 Sat by Pulse Oximetry (%) 98 11/13/19 09:54 Constitutional: Yes: No Distress, Calm Cardiovascular: Yes: S1, S2 Respiratory: Yes: Regular, CTA Bilaterally Gastrointestinal: Yes: Normal Bowel Sounds, Soft Musculoskeletal: Yes: WNL Extremities: Yes: WNL Neurological: Yes: Alert, Oriented Psychiatric: Yes: Alert, Oriented Labs: CBC, BMP 11/13/19 08:40 11/13/19 08:40 INR, PTT INR 1.25 (0.83-1.09) H 11/05/19 07:52 Assessment/Plan 59 y/0 male with PMH of Htn. kidney stones (s/p lithotripsy 3 days ago) presents to the ED with complaints of nausea/vomiting, fevers and left sided flank radiating into the groin pain found to have a L subcapsular hematoma on CT scan Left Subcapsular hematoma HTN leukocytosis fever plan continue abx await for ct scan report urology input rest as per the team
--- NOTE | 2019-11-13 11:50 | CONSULT ---
Consult - text type - Consultation Consultation Note: CC: left subcapsular hematoma s/p eswl hpi: Patient is doing well with minimal left flank pain VSS; afeb abd-mild left CVAT imp left subcapsular hematoma with improving leukocytosis plan continue with antibiotics
[2019-11-13 12:05] LABS: ANISOCYTOSIS 1+; MACROCYTOSIS 0; PLATELET ESTIMATE INCREASED
--- NOTE | 2019-11-13 14:11 | PN ---
Physical Exam: SUBJECTIVE: Patient seen and examined at bedside, endorses resolution of pain, still c/o nightsweats, fevers, WBC count still elevated. VSS. OBJECTIVE: GENERAL: Awake, alert, and fully oriented, no distress EYES: PEERLA: EOMI; no scleral icterus NECK: no JVD; no lymphadenopathy LUNGS: poor inspiratory effort due to pain HEART: Sinus tachycardia, S1, S2+ ABDOMEN: NT, ND, BS+, no guarding MUSCULOSKELETAL: NO CVA tenderness present EXTREMITIES: warm; well-perfused no clubbing/cyanosis or edema PSYCHIATRIC: Cooperative. Good eye contact. Appropriate mood and affect. SKIN: Warm, dry, normal turgor, no rashes or lesions noted, normal capillary refill. Laboratory Results - last 24 hr 11/13/19 11/13/19 08:40 08:40 WBC 14.7 H RBC 3.70 L Hgb 10.6 L Hct 32.0 L MCV 86.4 MCH 28.7 MCHC 33.3 RDW 14.1 Plt Count 547 H MPV 7.4 L Absolute Neuts (auto) 11.0 H Neutrophils % 75.2 Neutrophils % (Manual) 71.7 Band Neutrophils % 0.0 Lymphocytes % 16.1 Lymphocytes % (Manual) 17.2 Monocytes % 6.6 Monocytes % (Manual) 5 Eosinophils % 1.5 Eosinophils % (Manual) 3.0 Basophils % 0.6 Basophils % (Manual) 0.0 Myelocytes % (Man) 1 Promyelocytes % (Man) 0 Blast Cells % (Manual) 0 Nucleated RBC % 0 Metamyelocytes 0 Hypochromia 0 Platelet Estimate Increased Platelet Comment Present Polychromasia 1+ Poikilocytosis 1+ Anisocytosis 1+ Microcytosis 1+ Macrocytosis 0 Spherocytes 1+ Stomatocytes 1+ Sodium 138 Potassium 4.3 Chloride 105 Carbon Dioxide 27 Anion Gap 6 L BUN 18.3 H Creatinine 1.1 Est GFR (CKD-EPI)AfAm 83.53 Est GFR (CKD-EPI)NonAf 72.07 Random Glucose 103 Calcium 8.7 Phosphorus 3.3 Magnesium 2.5 H Total Bilirubin 0.7 AST 25 ALT 51 Alkaline Phosphatase 47 Total Protein 7.0 Albumin 3.1 L Active Medications Generic Name Dose Route Start Last Admin Trade Name Freq PRN Reason Stop Dose Admin Acetaminophen 650 mg 11/07/19 15:48 11/08/19 21:45 Tylenol - PO 650 mg Q6H PRN Administration FEVER Amlodipine Besylate 5 mg 11/07/19 10:00 11/13/19 09:39 Norvasc - PO 5 mg DAILY [facility] Administration Meropenem 1 gm/ Dextrose 100 mls @ 200 mls/hr 11/12/19 12:45 11/13/19 09:39 IVPB 200 mls/hr Q8H-IV [facility] Administration Lactated Ringer's 1,000 ml in 1,000 mls @ 50 mls/hr 11/12/19 14:45 11/12/19 19:05 Lactated Ringers Solution IV 50 mls/hr ASDIR [facility] Administration Ondansetron HCl 4 mg 11/07/19 02:00 11/07/19 22:49 Zofran Injection IVPUSH 4 mg Q6H PRN Administration NAUSEA Tamsulosin HCl 0.4 mg 11/07/19 08:30 11/13/19 09:39 Flomax - PO 0.4 mg DAILY@0830 [facility] Administration ASSESSMENT/PLAN: 59 M L nephrolithiasis s/p ESWL L subcapsular hematoma following ESWL (resolving) ?L pyelonephritis (slowly resolving) HTN Sepsis (resolved) Plan: Zosyn increased to Meropenem for increasing WBC count, subjective fever/chills If WBC count does not improve by the weekend, consult Heme-Onc to r/o malignancy Urology following Monitor CRE/CBC COVID negative DVT ppx: SCD/ambulation Visit type - Emergency Visit Emergency Visit: Yes ED Registration Date: 11/04/19 Care time: The patient presented to the Emergency Department on the above date and was hospitalized for further evaluation of their emergent condition. - New Patient This patient is new to me today: Yes Date on this admission: 11/13/19 - Critical Care Critical Care patient: No - Discharge Referral Referred to [facility] No
[2019-11-13] MEDS: LACTATED RINGERS SOLUTION 1,000 ML/1,000 ML INFUS.BAG IV SCH (16:20)
[2019-11-14] MEDS ORDERED: MEROPENEM 1 GM VIAL (RESTRICTED TO ID) IVPB ONE ×3 (01:33→17:13)
[2019-11-14] MEDS ORDERED: DEXTROSE 5%-WATER 100 ML IVPB ONE ×3 (01:33→17:13)
[2019-11-14] MEDS: MEROPENEM 1 GM in DEXTROSE 5%-WATER 100 ML IVPB SCH ×3 (01:44→17:42)
--- NOTE | 2019-11-14 07:01 | PN ---
Progress Note, Physician History of Present Illness: pulmonary alert,comfortable,-sob,-abd pain,wbc improving - Current Medication List Current Medications: Active Medications Acetaminophen (Tylenol -) 650 mg PO Q6H PRN PRN Reason: FEVER Last Admin: 11/08/19 21:45 Dose: 650 mg Documented by: Amlodipine Besylate (Norvasc -) 5 mg PO DAILY [facility] Last Admin: 11/13/19 09:39 Dose: 5 mg Documented by: Meropenem 1 gm/ Dextrose 100 mls @ 200 mls/hr IVPB Q8H-IV [facility] Last Admin: 11/14/19 01:44 Dose: 200 mls/hr Documented by: Lactated Ringer's (Lactated Ringers Solution) 1,000 ml in 1,000 mls @ 50 mls/hr IV ASDIR [facility] Last Admin: 11/13/19 16:20 Dose: 50 mls/hr Documented by: Ondansetron HCl (Zofran Injection) 4 mg IVPUSH Q6H PRN PRN Reason: NAUSEA Last Admin: 11/07/19 22:49 Dose: 4 mg Documented by: Tamsulosin HCl (Flomax -) 0.4 mg PO DAILY@0830 [facility] Last Admin: 11/13/19 09:39 Dose: 0.4 mg Documented by: - Objective Vital Signs: Vital Signs Temperature 99.0 F 11/14/19 06:15 Pulse Rate 73 11/14/19 06:15 Respiratory Rate 18 11/14/19 06:15 Blood Pressure 158/75 11/14/19 06:15 O2 Sat by Pulse Oximetry (%) 99 11/14/19 06:15 Constitutional: Yes: Well Nourished, Calm Eyes: Yes: WNL HENT: Yes: WNL Neck: Yes: WNL Cardiovascular: Yes: Regular Rate and Rhythm, S1, S2 Respiratory: Yes: Diminished Gastrointestinal: Yes: Normal Bowel Sounds, Soft Extremities: Yes: WNL Edema: No Labs: CBC, BMP 11/13/19 08:40 11/13/19 08:40 INR, PTT INR 1.25 (0.83-1.09) H 11/05/19 07:52 Assessment/Plan ASSESSMENT AND PLAN: Left Nephrolithiasis s/p Recent L ESWL Left Renal Subcapsular Hematoma HTN L basilar atelectasis - pain control - antibiotics per Id - DVT prophylaxis - Incentive spirometer - trend wbc DR MENDEZ
[2019-11-14 07:53] LABS: BASO % 0.6 % (0-2.0); EOS % 1.8 % (0-4.5); HEMATOCRIT 31.6 % (35.4-49); HEMOGLOBIN 10.7 GM/dL (11.7-16.9); LYMPH % 17.6 % (8-40); MCH 29.6 pg (25.7-33.7); MEAN PLT VOLUME 7.7 fl (7.5-11.1); MONO % 8.5 % (3.8-10.2); NEUT % 71.5 % (42.8-82.8); PLATELET COUNT 547 K/MM3 (134-434); RBC 3.63 M/mm3 (4.00-5.60); RDW 13.9 % (11.9-15.9); WHITE BLOOD COUNT 13.4 K/mm3 (4.0-10.0)
[2019-11-14 08:29] LABS: BILIRUBIN,TOTAL 0.9 mg/dL (0.2-1); BLOOD UREA NITROGEN 22.2 mg/dL (7-18); CALCIUM 9.1 mg/dL (8.5-10.1); CREATININE 1.1 mg/dL (0.55-1.3); TOT PROT 6.7 g/dl (6.4-8.2)
[2019-11-14] MEDS: TAMSULOSIN HCL 0.4 MG CAP PO SCH (09:46)
[2019-11-14] MEDS: amLODIPine BESYLATE 5 MG TABLET (FP) PO SCH (09:46)
[2019-11-14 10:00] LABS: ANISOCYTOSIS 1+; MACROCYTOSIS 0; PLATELET ESTIMATE INCREASED; TEAR DROP CELLS 1+
--- NOTE | 2019-11-14 14:49 | PN ---
Physical Exam: SUBJECTIVE: Patient seen and examined at bedside, still w/ residual L flank pain, repeat CT A/P showing recurrent/enlarged L subcapsular hematoma slightly expanding, will cont. to monitor and cont. IV abx, will need prolonged bedrest. Urology aware of findings. Will explore possible embolization if necessary with IR. OBJECTIVE: GENERAL: Awake, alert, and fully oriented, no distress EYES: PEERLA: EOMI; no scleral icterus NECK: no JVD; no lymphadenopathy LUNGS: poor inspiratory effort due to pain HEART: Sinus tachycardia, S1, S2+ ABDOMEN: L flank pain to palpation, no guarding, BS+, ND MUSCULOSKELETAL: NO CVA tenderness present EXTREMITIES: warm; well-perfused no clubbing/cyanosis or edema PSYCHIATRIC: Cooperative. Good eye contact. Appropriate mood and affect. SKIN: Warm, dry, normal turgor, no rashes or lesions noted, normal capillary refill. Microbiology 11/04/19 18:00 Blood - Peripheral Venous Blood Culture - Final NO GROWTH AFTER 5 DAYS INCUBATION 11/04/19 18:00 Blood - Peripheral Venous Blood Culture - Final NO GROWTH AFTER 5 DAYS INCUBATION 11/05/19 01:00 Urine - Urine Clean Catch Urine Culture - Final NO GROWTH OBTAINED 11/04/19 12:00 Urine - Urine Clean Catch Urine Culture - Final NO GROWTH OBTAINED Laboratory Results - last 24 hr 11/14/19 11/14/19 07:33 07:33 WBC 13.4 H RBC 3.63 L Hgb 10.7 L Hct 31.6 L MCV 87.0 MCH 29.6 MCHC 34.0 RDW 13.9 Plt Count 547 H MPV 7.7 Absolute Neuts (auto) 9.5 H Neutrophils % 71.5 Neutrophils % (Manual) 59.0 Band Neutrophils % 4.0 Lymphocytes % 17.6 Lymphocytes % (Manual) 13.0 D Monocytes % 8.5 Monocytes % (Manual) 6 Eosinophils % 1.8 Eosinophils % (Manual) 2.0 Basophils % 0.6 Basophils % (Manual) 1.0 D Myelocytes % (Man) 0 D Promyelocytes % (Man) 0 Blast Cells % (Manual) 0 Nucleated RBC % 0 Metamyelocytes 1 D Hypochromia 0 Platelet Estimate Increased Platelet Comment Present Polychromasia 0 Poikilocytosis 0 Anisocytosis 1+ Microcytosis 1+ Macrocytosis 0 Tear Drop Cells 1+ Stomatocytes 1+ Sodium 139 Potassium 5.0 Chloride 106 Carbon Dioxide 27 Anion Gap 7 L BUN 22.2 H Creatinine 1.1 Est GFR (CKD-EPI)AfAm 83.53 Est GFR (CKD-EPI)NonAf 72.07 Random Glucose 96 Calcium 9.1 Total Bilirubin 0.9 AST 21 ALT 43 Alkaline Phosphatase 42 L Total Protein 6.7 Albumin 3.0 L Active Medications Generic Name Dose Route Start Last Admin Trade Name Freq PRN Reason Stop Dose Admin Acetaminophen 650 mg 11/07/19 15:48 11/08/19 21:45 Tylenol - PO 650 mg Q6H PRN Administration FEVER Amlodipine Besylate 5 mg 11/07/19 10:00 11/13/19 09:39 Norvasc - PO 5 mg DAILY DERICK Administration Meropenem 1 gm/ Dextrose 100 mls @ 200 mls/hr 11/12/19 12:45 11/13/19 09:39 IVPB 200 mls/hr Q8H-IV DERIKC Administration Lactated Ringer's 1,000 ml in 1,000 mls @ 50 mls/hr 11/12/19 14:45 11/12/19 19:05 Lactated Ringers Solution IV 50 mls/hr ASDIR DERICK Administration Ondansetron HCl 4 mg 11/07/19 02:00 11/07/19 22:49 Zofran Injection IVPUSH 4 mg Q6H PRN Administration NAUSEA Tamsulosin HCl 0.4 mg 11/07/19 08:30 11/13/19 09:39 Flomax - PO 0.4 mg DAILY@0830 DERICK Administration ASSESSMENT/PLAN: 59 M L nephrolithiasis s/p ESWL L subcapsular hematoma following ESWL (resolving) ?L pyelonephritis (slowly resolving) HTN Sepsis (resolved) Plan: COnt. IV Meropenem for stagnant WBC count, subjective fever/chills reported by patient ?residual abscess v.s. inflammatory reaction from bleeding Needs IR evaluation for possible embolization if bleeding continues Urology following Monitor CRE/CBC COVID negative DVT ppx: SCD/ambulation Visit type - Emergency Visit Emergency Visit: Yes ED Registration Date: 11/04/19 Care time: The patient presented to the Emergency Department on the above date and was hospitalized for further evaluation of their emergent condition. - New Patient This patient is new to me today: No - Critical Care Critical Care patient: No - Discharge Referral Referred to [facility] Med P.C.: No
[2019-11-14] MEDS: LACTATED RINGERS SOLUTION 1,000 ML/1,000 ML INFUS.BAG IV SCH (16:24)
[2019-11-14] MEDS: ACETAMINOPHEN 325 MG TABLET (FP) PO PRN (19:44)
[2019-11-15] MEDS ORDERED: DEXTROSE 5%-WATER 100 ML IVPB ONE ×3 (00:48→17:50)
[2019-11-15] MEDS ORDERED: MEROPENEM 1 GM VIAL (RESTRICTED TO ID) IVPB ONE ×3 (00:48→17:50)
[2019-11-15] MEDS: MEROPENEM 1 GM in DEXTROSE 5%-WATER 100 ML IVPB SCH ×3 (01:26→18:00)
--- NOTE | 2019-11-15 09:06 | PN ---
Progress Note, Physician History of Present Illness: PULMONARY ALERT,-SOB,C/O LEFT SIDED ABD DISCOMFORT - Current Medication List Current Medications: Active Medications Acetaminophen (Tylenol -) 650 mg PO Q6H PRN PRN Reason: FEVER Last Admin: 11/14/19 19:44 Dose: 650 mg Documented by: Amlodipine Besylate (Norvasc -) 5 mg PO DAILY [facility] Last Admin: 11/14/19 09:46 Dose: 5 mg Documented by: Meropenem 1 gm/ Dextrose 100 mls @ 200 mls/hr IVPB Q8H-IV DERICK Last Admin: 11/15/19 01:26 Dose: 200 mls/hr Documented by: Lactated Ringer's (Lactated Ringers Solution) 1,000 ml in 1,000 mls @ 50 mls/hr IV ASDIR [facility] Last Admin: 11/14/19 16:24 Dose: 50 mls/hr Documented by: Ondansetron HCl (Zofran Injection) 4 mg IVPUSH Q6H PRN PRN Reason: NAUSEA Last Admin: 11/07/19 22:49 Dose: 4 mg Documented by: Tamsulosin HCl (Flomax -) 0.4 mg PO DAILY@0830 [facility] Last Admin: 11/14/19 09:46 Dose: 0.4 mg Documented by: - Objective Vital Signs: Vital Signs Temperature 99.3 F 11/15/19 05:46 Pulse Rate 67 11/15/19 05:46 Respiratory Rate 18 11/15/19 05:46 Blood Pressure 116/68 11/15/19 05:46 O2 Sat by Pulse Oximetry (%) 99 11/15/19 05:46 Constitutional: Yes: Well Nourished, Calm Eyes: Yes: WNL HENT: Yes: WNL Neck: Yes: WNL Cardiovascular: Yes: Regular Rate and Rhythm, S1, S2 Respiratory: Yes: Diminished Gastrointestinal: Yes: Normal Bowel Sounds, Soft, Tenderness Extremities: Yes: WNL Edema: No Labs: CBC, BMP 11/14/19 07:33 INR, PTT INR 1.25 (0.83-1.09) H 11/05/19 07:52 Assessment/Plan ASSESSMENT AND PLAN: Left Nephrolithiasis s/p Recent L ESWL Left Renal Subcapsular Hematoma HTN L basilar atelectasis - pain control - antibiotics per Id - DVT prophylaxis - Incentive spirometer - trend wbc DR MENDEZ
[2019-11-15 09:16] LABS: BASO % 0.7 % (0-2.0); EOS % 1.4 % (0-4.5); HEMATOCRIT 33.7 % (35.4-49); HEMOGLOBIN 11.2 GM/dL (11.7-16.9); LYMPH % 16.3 % (8-40); MCH 28.8 pg (25.7-33.7); MCHC 33.2 g/dl (32.0-35.9); MEAN CELL VOLUME 86.6 fl (80-96); MEAN PLT VOLUME 7.7 fl (7.5-11.1); MONO % 6.1 % (3.8-10.2); NEUT % 75.5 % (42.8-82.8); PLATELET COUNT 620 K/MM3 (134-434); RBC 3.89 M/mm3 (4.00-5.60); WHITE BLOOD COUNT 10.1 K/mm3 (4.0-10.0)
[2019-11-15 09:22] LABS: ALBUMIN 3.2 g/dl (3.4-5.0); BLOOD UREA NITROGEN 18.5 mg/dL (7-18); CALCIUM 9.1 mg/dL (8.5-10.1); CREATININE 1.2 mg/dL (0.55-1.3); POTASSIUM 4.8 mmol/L (3.5-5.1); TOT PROT 7.2 g/dl (6.4-8.2)
--- NOTE | 2019-11-15 10:20 | PN ---
Progress Note, Physician History of Present Illness: patient c/o of pain today in the flank wbc has decreased - Current Medication List Current Medications: Active Medications Acetaminophen (Tylenol -) 650 mg PO Q6H PRN PRN Reason: FEVER Last Admin: 11/14/19 19:44 Dose: 650 mg Documented by: Amlodipine Besylate (Norvasc -) 5 mg PO DAILY [facility] Last Admin: 11/14/19 09:46 Dose: 5 mg Documented by: Meropenem 1 gm/ Dextrose 100 mls @ 200 mls/hr IVPB Q8H-IV DERICK Last Admin: 11/15/19 01:26 Dose: 200 mls/hr Documented by: Lactated Ringer's (Lactated Ringers Solution) 1,000 ml in 1,000 mls @ 50 mls/hr IV ASDIR [facility] Last Admin: 11/14/19 16:24 Dose: 50 mls/hr Documented by: Ondansetron HCl (Zofran Injection) 4 mg IVPUSH Q6H PRN PRN Reason: NAUSEA Last Admin: 11/07/19 22:49 Dose: 4 mg Documented by: Tamsulosin HCl (Flomax -) 0.4 mg PO DAILY@0830 [facility] Last Admin: 11/14/19 09:46 Dose: 0.4 mg Documented by: - Objective Vital Signs: Vital Signs Temperature 99.3 F 11/15/19 05:46 Pulse Rate 67 11/15/19 05:46 Respiratory Rate 18 11/15/19 05:46 Blood Pressure 116/68 11/15/19 05:46 O2 Sat by Pulse Oximetry (%) 99 11/15/19 05:46 Constitutional: Yes: Calm, Mild Distress Eyes: Yes: Conjunctiva Clear Cardiovascular: Yes: S1, S2 Respiratory: Yes: Regular, CTA Bilaterally Gastrointestinal: Yes: Normal Bowel Sounds, Soft Musculoskeletal: Yes: WNL Extremities: Yes: Other Neurological: Yes: Alert, Oriented Psychiatric: Yes: Alert, Oriented Labs: CBC, BMP 11/15/19 08:45 11/15/19 08:45 INR, PTT INR 1.25 (0.83-1.09) H 11/05/19 07:52 Assessment/Plan 59 y/0 male with PMH of Htn. kidney stones (s/p lithotripsy 3 days ago) presents to the ED with complaints of nausea/vomiting, fevers and left sided flank radiating into the groin pain found to have a L subcapsular hematoma on CT scan Left Subcapsular hematoma HTN leukocytosis fever plan continue abx ct scan result noted wbc has trended down i ahve feeling that the collection might need to be drained
[2019-11-15] MEDS: amLODIPine BESYLATE 5 MG TABLET (FP) PO SCH (10:42)
[2019-11-15] MEDS: TAMSULOSIN HCL 0.4 MG CAP PO SCH (10:42)
--- NOTE | 2019-11-15 11:52 | PN ---
Physical Exam: SUBJECTIVE: Patient seen and examined. Pt. frustrated and having to being the hospital for this long. Pt. endorses new L. abdominal pain. OBJECTIVE: Vital Signs Period Temp Pulse Resp BP Sys/Dutta Pulse Ox Last 24 Hr 98.1 F-99.3 F 64-73 18-20 116-141/56-68 98-99 GENERAL: The patient is awake, alert, and fully oriented, in no acute distress. HEAD: Normal with no signs of trauma. EYES: Sclera anicteric, conjunctiva clear. ENT: Moist mucous membranes. NECK: Trachea midline, full range of motion, supple. LUNGS: Breath sounds equal, clear to auscultation bilaterally, no wheezes, no crackles, no accessory muscle use. HEART: Regular rate and rhythm, S1, S2 without murmur ABDOMEN: Soft, slight tenderness in Left flank, nondistended, normoactive bowel sounds EXTREMITIES: 2+ dorsal pedal pulses, warm, well-perfused, no calf tenderness, no edema. NEUROLOGICAL: Normal speech, gait not observed. PSYCH: Normal mood, normal affect. SKIN: Warm, dry, normal turgor, Laboratory Results - last 24 hr 11/15/19 11/15/19 08:45 08:45 WBC 10.1 H RBC 3.89 L Hgb 11.2 L Hct 33.7 L MCV 86.6 MCH 28.8 MCHC 33.2 RDW 14.0 Plt Count 620 H MPV 7.7 Absolute Neuts (auto) 7.6 Neutrophils % 75.5 Lymphocytes % 16.3 Monocytes % 6.1 Eosinophils % 1.4 Basophils % 0.7 Nucleated RBC % 0 Sodium 138 Potassium 4.8 Chloride 105 Carbon Dioxide 29 Anion Gap 4 L BUN 18.5 H Creatinine 1.2 Est GFR (CKD-EPI)AfAm 75.19 Est GFR (CKD-EPI)NonAf 64.87 Random Glucose 117 H Calcium 9.1 Total Bilirubin 1.0 AST 19 ALT 40 Alkaline Phosphatase 50 Total Protein 7.2 Albumin 3.2 L Active Medications Generic Name Dose Route Start Last Admin Trade Name Freq PRN Reason Stop Dose Admin Acetaminophen 650 mg 11/07/19 15:48 11/14/19 19:44 Tylenol - PO 650 mg Q6H PRN Administration FEVER Amlodipine Besylate 5 mg 11/07/19 10:00 11/15/19 10:42 Norvasc - PO 5 mg DAILY DERICK Administration Meropenem 1 gm/ Dextrose 100 mls @ 200 mls/hr 11/12/19 12:45 11/15/19 10:42 IVPB 200 mls/hr Q8H-IV DERICK Administration Lactated Ringer's 1,000 ml in 1,000 mls @ 50 mls/hr 11/12/19 14:45 11/14/19 16:24 Lactated Ringers Solution IV 50 mls/hr ASDIR DERICK Administration Ondansetron HCl 4 mg 11/07/19 02:00 11/07/19 22:49 Zofran Injection IVPUSH 4 mg Q6H PRN Administration NAUSEA Tamsulosin HCl 0.4 mg 11/07/19 08:30 11/15/19 10:42 Flomax - PO 0.4 mg DAILY@0830 DERICK Administration ASSESSMENT/PLAN: 59M w/ PMHx. of HTN, BPH, kidney stones (s/p lithotripsy 3 days prior to admission) presented with fevers and left sided flank pain, admitted for L. subcapsular hematoma. #Left Subcapsular Renal hematoma -s/p lithotripsy -WBC is downtrending -c/w Meropenem (Started on 12/05) -Repeat CT Abd. Pelvis shows slightly larger hematoma -nephro consult appreciated -zofran PRN for nausea -morphine PRN for pain -ID and Urology consult appreciated -IR consult appreciated, will be NPO after midnight for IR drainage? #BPH c/w Flomax #HTN c/w amlodipine 10mg daily FEN LR @ 50 Replete lytes PRN Sodium controlled diet, NPO after midnight Dvt ppx: scds in light of hematoma dispo: monitoring on med-surg Visit type - Emergency Visit Emergency Visit: Yes ED Registration Date: 11/04/19 Care time: The patient presented to the Emergency Department on the above date and was hospitalized for further evaluation of their emergent condition. - New Patient This patient is new to me today: No - Critical Care Critical Care patient: No - Discharge Referral Referred to [facility] Med P.C.: No ATTENDING PHYSICIAN STATEMENT I saw and evaluated the patient. I reviewed the resident's note and discussed the case with the resident. I agree with the resident's findings and plan as documented. SUBJECTIVE: OBJECTIVE: ASSESSMENT AND PLAN:
--- NOTE | 2019-11-15 12:27 | PN ---
Progress Note, Physician History of Present Illness: Pt seen and examined at bedside. He does have flank discomfort. - Current Medication List Current Medications: Active Medications Acetaminophen (Tylenol -) 650 mg PO Q6H PRN PRN Reason: FEVER Last Admin: 11/14/19 19:44 Dose: 650 mg Documented by: Amlodipine Besylate (Norvasc -) 5 mg PO DAILY [facility] Last Admin: 11/15/19 10:42 Dose: 5 mg Documented by: Meropenem 1 gm/ Dextrose 100 mls @ 200 mls/hr IVPB Q8H-IV DERICK Last Admin: 11/15/19 10:42 Dose: 200 mls/hr Documented by: Lactated Ringer's (Lactated Ringers Solution) 1,000 ml in 1,000 mls @ 50 mls/hr IV ASDIR [facility] Last Admin: 11/14/19 16:24 Dose: 50 mls/hr Documented by: Ondansetron HCl (Zofran Injection) 4 mg IVPUSH Q6H PRN PRN Reason: NAUSEA Last Admin: 11/07/19 22:49 Dose: 4 mg Documented by: Tamsulosin HCl (Flomax -) 0.4 mg PO DAILY@0830 [facility] Last Admin: 11/15/19 10:42 Dose: 0.4 mg Documented by: - Objective Vital Signs: Vital Signs Temperature 98.1 F 11/15/19 10:53 Pulse Rate 73 11/15/19 10:53 Respiratory Rate 20 11/15/19 10:53 Blood Pressure 131/58 L 11/15/19 10:53 O2 Sat by Pulse Oximetry (%) 99 11/15/19 05:46 Constitutional: Yes: Calm Eyes: Yes: Conjunctiva Clear HENT: Yes: Atraumatic Neck: Yes: Supple Cardiovascular: Yes: S1, S2 Respiratory: Yes: CTA Bilaterally Gastrointestinal: Yes: Soft Musculoskeletal: Yes: WNL Edema: No Neurological: Yes: Oriented Psychiatric: Yes: Oriented Labs: CBC, BMP 11/15/19 08:45 11/15/19 08:45 INR, PTT INR 1.25 (0.83-1.09) H 11/05/19 07:52 Problem List - Problems (1) Abdominal pain Code(s): R10.9 - UNSPECIFIED ABDOMINAL PAIN Qualifiers: Abdominal location: left lower quadrant Qualified Code(s): R10.32 - Left lower quadrant pain (2) Renal hematoma Code(s): S37.019A - MINOR CONTUSION OF UNSPECIFIED KIDNEY, INITIAL ENCOUNTER Qualifiers: Encounter type: initial encounter Laterality: left Qualified Code(s): S37.012A - Minor contusion of left kidney, initial encounter Assessment/Plan Current Medications Generic Name Dose Route Start Last Admin Trade Name Freq PRN Reason Stop Dose Admin Acetaminophen 650 mg 11/07/19 15:48 11/14/19 19:44 Tylenol - PO 650 mg Q6H PRN Administration FEVER Amlodipine Besylate 5 mg 11/07/19 10:00 11/15/19 10:42 Norvasc - PO 5 mg DAILY DERICK Administration Meropenem 1 gm/ Dextrose 100 mls @ 200 mls/hr 11/12/19 12:45 11/15/19 10:42 IVPB 200 mls/hr Q8H-IV DERICK Administration Lactated Ringer's 1,000 ml in 1,000 mls @ 50 mls/hr 11/12/19 14:45 11/14/19 16:24 Lactated Ringers Solution IV 50 mls/hr ASDIR DERICK Administration Ondansetron HCl 4 mg 11/07/19 02:00 11/07/19 22:49 Zofran Injection IVPUSH 4 mg Q6H PRN Administration NAUSEA Tamsulosin HCl 0.4 mg 11/07/19 08:30 11/15/19 10:42 Flomax - PO 0.4 mg DAILY@0830 DERICK Administration Impression 1. shame[place] improving 2. nephrolithiasis 3. left renal sub-capsular hematoma 4. fever Plan - repeat labs in am - renal function stable - urology follow up - last ct scan show some expansion - monitor for fever
--- NOTE | 2019-11-15 13:18 | PN ---
Teaching Attending Note Name of Resident: Laurent Esparza ATTENDING PHYSICIAN STATEMENT I saw and evaluated the patient. I reviewed the resident's note and discussed the case with the resident. I agree with the resident's findings and plan as documented. SUBJECTIVE: Seen and examined at bedside. Increased pain today. CT abdomen pelvis over the weekend showed increasing size of the left subcapsular hematoma. Will make n.p.o. overnight for possible IR intervention tomorrow. Patient has been afebrile with downtrending white count OBJECTIVE Last Vital Signs Temp Pulse Resp BP Pulse Ox 98.1 F 73 20 131/58 L 99 11/15/19 10:53 11/15/19 10:53 11/15/19 10:53 11/15/19 10:53 11/15/19 05:46 PE: Per resident note Labs/Imaging: reviewed ASSESSMENT/PLAN 59-year-old male past medical history of hypertension, BPH, kidney stones with lithotripsy 3 days prior to admission presented with nausea vomiting and fevers and found to have left subcapsular hematoma. #Left subcapsular hematoma Increasing in size, with increasing pain, and increasing platelet count, the white count is now decreasing on meropenem. N.p.o. overnight for possible IR intervention tomorrow if required Discussed with urology tomorrow ID on board meropenem Pain/nausea control #Pleural effusions BNP 182: no need for echo #BPH Continue Flomax #Hypertension Continue amlodipine
[2019-11-15] MEDS: LACTATED RINGERS SOLUTION 1,000 ML/1,000 ML INFUS.BAG IV SCH (18:01)
[2019-11-16] MEDS ORDERED: PT OWN MED DRAWER 7, Y5N ONE (01:46)
[2019-11-16] MEDS ORDERED: MEROPENEM 1 GM VIAL (RESTRICTED TO ID) IVPB ONE ×3 (02:02→17:26)
[2019-11-16] MEDS ORDERED: DEXTROSE 5%-WATER 100 ML IVPB ONE ×3 (02:03→17:27)
[2019-11-16] MEDS: MEROPENEM 1 GM in DEXTROSE 5%-WATER 100 ML IVPB SCH ×3 (02:26→17:35)
--- NOTE | 2019-11-16 07:49 | PN ---
Progress Note, Physician History of Present Illness: pulmonary alert,c/o LLQ discomfort,for percutaneous drainage sub-capsular hematoma - Current Medication List Current Medications: Active Medications Acetaminophen (Tylenol -) 650 mg PO Q6H PRN PRN Reason: FEVER Last Admin: 11/14/19 19:44 Dose: 650 mg Documented by: Amlodipine Besylate (Norvasc -) 5 mg PO DAILY [facility] Last Admin: 11/15/19 10:42 Dose: 5 mg Documented by: Meropenem 1 gm/ Dextrose 100 mls @ 200 mls/hr IVPB Q8H-IV DERICK Last Admin: 11/16/19 02:26 Dose: 200 mls/hr Documented by: Lactated Ringer's (Lactated Ringers Solution) 1,000 ml in 1,000 mls @ 50 mls/hr IV ASDIR [facility] Last Admin: 11/15/19 18:01 Dose: 50 mls/hr Documented by: Ondansetron HCl (Zofran Injection) 4 mg IVPUSH Q6H PRN PRN Reason: NAUSEA Last Admin: 11/07/19 22:49 Dose: 4 mg Documented by: Tamsulosin HCl (Flomax -) 0.4 mg PO DAILY@0830 [facility] Last Admin: 11/15/19 10:42 Dose: 0.4 mg Documented by: - Objective Vital Signs: Vital Signs Temperature 98.4 F 11/16/19 06:00 Pulse Rate 67 11/16/19 06:00 Respiratory Rate 20 11/16/19 06:00 Blood Pressure 122/59 L 11/16/19 06:00 O2 Sat by Pulse Oximetry (%) 97 11/16/19 06:00 Constitutional: Yes: Well Nourished, Calm Eyes: Yes: WNL HENT: Yes: WNL Neck: Yes: WNL Cardiovascular: Yes: Regular Rate and Rhythm, S1 Respiratory: Yes: CTA Bilaterally Gastrointestinal: Yes: Normal Bowel Sounds, Soft, Tenderness (llq) Extremities: Yes: WNL Edema: No Labs: CBC, BMP Assessment/Plan ASSESSMENT AND PLAN: Left Nephrolithiasis s/p Recent L ESWL Left Renal Subcapsular Hematoma HTN L basilar atelectasis - pain control - antibiotics per Id - percutaneous drainage sub-capsular hematoma by IR today - DVT prophylaxis - Incentive spirometer - trend wbc DR MENDEZ
--- NOTE | 2019-11-16 08:16 | CONSULT ---
Consult - text type - Consultation Consultation Note: cc: left subcapsular renal hematoma s/p eswl hpi: patient is comfortable and and maintaining a diet PE vss: afeb abd- mild lef CVAT imp left subcapsular hematoma plan will discuss percutaneous drainage with Dr. Khanna
[2019-11-16 08:20] LABS: BASO % 0.6 % (0-2.0); EOS % 1.6 % (0-4.5); LYMPH % 19.7 % (8-40); MCH 28.8 pg (25.7-33.7); MCHC 33.5 g/dl (32.0-35.9); MEAN CELL VOLUME 85.9 fl (80-96); MEAN PLT VOLUME 7.4 fl (7.5-11.1); MONO % 7.9 % (3.8-10.2); NEUT % 70.2 % (42.8-82.8); PLATELET COUNT 597 K/MM3 (134-434); RBC 3.84 M/mm3 (4.00-5.60); RDW 13.9 % (11.9-15.9); WHITE BLOOD COUNT 10.5 K/mm3 (4.0-10.0)
[2019-11-16 08:31] LABS: BLOOD UREA NITROGEN 21.3 mg/dL (7-18); CALCIUM 9.2 mg/dL (8.5-10.1); CREATININE 1.1 mg/dL (0.55-1.3); POTASSIUM 4.6 mmol/L (3.5-5.1)
[2019-11-16] MEDS: amLODIPine BESYLATE 5 MG TABLET (FP) PO SCH (09:25)
[2019-11-16] MEDS: TAMSULOSIN HCL 0.4 MG CAP PO SCH (09:25)
--- NOTE | 2019-11-16 11:55 | PN ---
Progress Note, Physician History of Present Illness: stable but pain has increased - Current Medication List Current Medications: Active Medications Acetaminophen (Tylenol -) 650 mg PO Q6H PRN PRN Reason: FEVER Last Admin: 11/14/19 19:44 Dose: 650 mg Documented by: Amlodipine Besylate (Norvasc -) 5 mg PO DAILY [facility] Last Admin: 11/16/19 09:25 Dose: 5 mg Documented by: Meropenem 1 gm/ Dextrose 100 mls @ 200 mls/hr IVPB Q8H-IV [facility] Last Admin: 11/16/19 09:25 Dose: 200 mls/hr Documented by: Lactated Ringer's (Lactated Ringers Solution) 1,000 ml in 1,000 mls @ 50 mls/hr IV ASDIR [facility] Last Admin: 11/15/19 18:01 Dose: 50 mls/hr Documented by: Ondansetron HCl (Zofran Injection) 4 mg IVPUSH Q6H PRN PRN Reason: NAUSEA Last Admin: 11/07/19 22:49 Dose: 4 mg Documented by: Tamsulosin HCl (Flomax -) 0.4 mg PO DAILY@829 [facility] Last Admin: 11/16/19 09:25 Dose: 0.4 mg Documented by: - Objective Vital Signs: Vital Signs Temperature 98.3 F 11/16/19 10:00 Pulse Rate 72 11/16/19 10:00 Respiratory Rate 11/16/19 10:00 Blood Pressure 136/66 11/16/19 10:00 O2 Sat by Pulse Oximetry (%) 96 11/16/19 10:00 Constitutional: Yes: Calm, Mild Distress Cardiovascular: Yes: S1, S2 Respiratory: Yes: Regular, CTA Bilaterally Gastrointestinal: Yes: Normal Bowel Sounds, Soft Musculoskeletal: Yes: WNL Extremities: Yes: WNL Neurological: Yes: Alert, Oriented Psychiatric: Yes: Alert, Oriented Labs: CBC, BMP 11/16/19 07:30 11/16/19 07:30 INR, PTT INR 1.25 (0.83-1.09) H 11/05/19 07:52 Assessment/Plan 59 y/0 male with PMH of Htn. kidney stones (s/p lithotripsy 3 days ago) presents to the ED with complaints of nausea/vomiting, fevers and left sided flank radiating into the groin pain found to have a L subcapsular hematoma on CT scan Left Subcapsular hematoma HTN leukocytosis fever plan continue abx ct scan result noted wbc has trended down plan for percut drainage
--- NOTE | 2019-11-16 13:39 | PN ---
Teaching Attending Note Name of Resident: Laurent Esparza ATTENDING PHYSICIAN STATEMENT I saw and evaluated the patient. I reviewed the resident's note and discussed the case with the resident. I agree with the resident's findings and plan as documented. SUBJECTIVE: Seen and examined at bedside. Pending decision on IR intervention. Pain stable since yesterday but increased from last week. OBJECTIVE Last Vital Signs Temp Pulse Resp BP Pulse Ox 98.3 F 72 20 136/66 96 11/16/19 10:00 11/16/19 10:00 11/16/19 10:00 11/16/19 10:00 11/16/19 10:00 PE: Per resident note Labs/Imaging: reviewed ASSESSMENT/PLAN 59-year-old male past medical history of hypertension, BPH, kidney stones with lithotripsy 3 days prior to admission presented with nausea vomiting and fevers and found to have left subcapsular hematoma. #Left subcapsular hematoma Increasing in size, with increasing pain, and increasing platelet count, the white count is now decreasing on meropenem. N.p.o. overnight for possible IR intervention tomorrow if required Discussed with urology tomorrow ID on board meropenem Pain/nausea control #Pleural effusions BNP 182: no need for echo #BPH Continue Flomax #Hypertension Continue amlodipine
--- NOTE | 2019-11-16 13:49 | PN ---
Progress Note, Physician History of Present Illness: Pt seen and examined at bedside. He is awake and alert. he denies pain today. - Current Medication List Current Medications: Active Medications Acetaminophen (Tylenol -) 650 mg PO Q6H PRN PRN Reason: FEVER Last Admin: 11/14/19 19:44 Dose: 650 mg Documented by: Amlodipine Besylate (Norvasc -) 5 mg PO DAILY [facility] Last Admin: 11/16/19 09:25 Dose: 5 mg Documented by: Meropenem 1 gm/ Dextrose 100 mls @ 200 mls/hr IVPB Q8H-IV [facility] Last Admin: 11/16/19 09:25 Dose: 200 mls/hr Documented by: Lactated Ringer's (Lactated Ringers Solution) 1,000 ml in 1,000 mls @ 50 mls/hr IV ASDIR [facility] Last Admin: 11/15/19 18:01 Dose: 50 mls/hr Documented by: Ondansetron HCl (Zofran Injection) 4 mg IVPUSH Q6H PRN PRN Reason: NAUSEA Last Admin: 11/07/19 22:49 Dose: 4 mg Documented by: Tamsulosin HCl (Flomax -) 0.4 mg PO DAILY@0830 [facility] Last Admin: 11/16/19 09:25 Dose: 0.4 mg Documented by: - Objective Vital Signs: Vital Signs Temperature 98.3 F 11/16/19 10:00 Pulse Rate 72 11/16/19 10:00 Respiratory Rate 20 11/16/19 10:00 Blood Pressure 136/66 11/16/19 10:00 O2 Sat by Pulse Oximetry (%) 96 11/16/19 10:00 Constitutional: Yes: Calm Eyes: Yes: Conjunctiva Clear HENT: Yes: Atraumatic Neck: Yes: Supple Cardiovascular: Yes: S1, S2 Respiratory: Yes: CTA Bilaterally Gastrointestinal: Yes: Soft Genitourinary: Yes: WNL Musculoskeletal: Yes: WNL Edema: No Neurological: Yes: Oriented Psychiatric: Yes: Oriented Labs: CBC, BMP 11/16/19 07:30 11/16/19 07:30 INR, PTT INR 1.25 (0.83-1.09) H 11/05/19 07:52 Problem List - Problems (1) Abdominal pain Code(s): R10.9 - UNSPECIFIED ABDOMINAL PAIN Qualifiers: Abdominal location: left lower quadrant Qualified Code(s): R10.32 - Left lower quadrant pain (2) Renal hematoma Code(s): S37.019A - MINOR CONTUSION OF UNSPECIFIED KIDNEY, INITIAL ENCOUNTER Qualifiers: Encounter type: initial encounter Laterality: left Qualified Code(s): S37.012A - Minor contusion of left kidney, initial encounter Assessment/Plan Current Medications Generic Name Dose Route Start Last Admin Trade Name Freq PRN Reason Stop Dose Admin Acetaminophen 650 mg 11/07/19 15:48 11/14/19 19:44 Tylenol - PO 650 mg Q6H PRN Administration FEVER Amlodipine Besylate 5 mg 11/07/19 10:00 11/16/19 09:25 Norvasc - PO 5 mg DAILY [facility] Administration Meropenem 1 gm/ Dextrose 100 mls @ 200 mls/hr 11/12/19 12:45 11/16/19 09:25 IVPB 200 mls/hr Q8H-IV [facility] Administration Lactated Ringer's 1,000 ml in 1,000 mls @ 50 mls/hr 11/12/19 14:45 11/15/19 18:01 Lactated Ringers Solution IV 50 mls/hr ASDIR [facility] Administration Ondansetron HCl 4 mg 11/07/19 02:00 11/07/19 22:49 Zofran Injection IVPUSH 4 mg Q6H PRN Administration NAUSEA Tamsulosin HCl 0.4 mg 11/07/19 08:30 11/16/19 09:25 Flomax - PO 0.4 mg DAILY@0830 [facility] Administration Impression 1. shameka improving 2. nephrolithiasis 3. left renal sub-capsular hematoma 4. fever Plan - renal function has been stable - bp stable - urology follow up, they will discuss with IR - last ct scan show some expansion - monitor for fever - will follow prn
[2019-11-16] MEDS: LACTATED RINGERS SOLUTION 1,000 ML/1,000 ML INFUS.BAG IV SCH (16:09)
--- NOTE | 2019-11-16 19:53 | PN ---
Physical Exam: SUBJECTIVE: Patient seen and examined. Pt. endorses unchanged pain in abdomen from yesterday. Pt. frustrated at having to wait in the hospital. Pt. did not got for IR procedure today. OBJECTIVE: Vital Signs Period Temp Pulse Resp BP Sys/Dutta Pulse Ox Last 24 Hr 98.3 F-99.1 F 67-100 18-20 121-144/57-75 93-98 GENERAL: The patient is awake, alert, and fully oriented, in no acute distress. HEAD: Normal with no signs of trauma. EYES: Sclera anicteric, conjunctiva clear. ENT: Moist mucous membranes. NECK: Trachea midline, full range of motion, supple. LUNGS: Faint basilar crackles, no accessory muscle use. HEART: Regular rate and rhythm, S1, S2 without murmur ABDOMEN: Soft, slight tenderness in Left flank, nondistended, normoactive bowel sounds EXTREMITIES: 2+ dorsal pedal pulses, warm, well-perfused, no calf tenderness, no edema. NEUROLOGICAL: Normal speech, gait not observed. PSYCH: Normal mood, normal affect. SKIN: Warm, dry, normal turgor, Laboratory Results - last 24 hr 11/16/19 11/16/19 07:30 07:30 WBC 10.5 H RBC 3.84 L Hgb 11.0 L Hct 33.0 L MCV 85.9 MCH 28.8 MCHC 33.5 RDW 13.9 Plt Count 597 H MPV 7.4 L Absolute Neuts (auto) 7.4 Neutrophils % 70.2 Lymphocytes % 19.7 D Monocytes % 7.9 Eosinophils % 1.6 Basophils % 0.6 Nucleated RBC % 0 Sodium 138 Potassium 4.6 Chloride 104 Carbon Dioxide 26 Anion Gap 8 BUN 21.3 H Creatinine 1.1 Est GFR (CKD-EPI)AfAm 83.53 Est GFR (CKD-EPI)NonAf 72.07 Random Glucose 93 Calcium 9.2 Active Medications Generic Name Dose Route Start Last Admin Trade Name Freq PRN Reason Stop Dose Admin Acetaminophen 650 mg 11/07/19 15:48 11/14/19 19:44 Tylenol - PO 650 mg Q6H PRN Administration FEVER Amlodipine Besylate 5 mg 11/07/19 10:00 11/16/19 09:25 Norvasc - PO 5 mg DAILY [facility] Administration Meropenem 1 gm/ Dextrose 100 mls @ 200 mls/hr 11/12/19 12:45 11/16/19 17:35 IVPB 200 mls/hr Q8H-IV [facility] Administration Lactated Ringer's 1,000 ml in 1,000 mls @ 50 mls/hr 11/12/19 14:45 11/16/19 16:09 Lactated Ringers Solution IV 50 mls/hr ASDIR [facility] Administration Ondansetron HCl 4 mg 11/07/19 02:00 11/07/19 22:49 Zofran Injection IVPUSH 4 mg Q6H PRN Administration NAUSEA Tamsulosin HCl 0.4 mg 11/07/19 08:30 11/16/19 09:25 Flomax - PO 0.4 mg DAILY@0830 [facility] Administration ASSESSMENT/PLAN: 59M w/ PMHx. of HTN, BPH, kidney stones (s/p lithotripsy 3 days prior to admission) presented with fevers and left sided flank pain, admitted for L. subcapsular hematoma. #Left Subcapsular Renal hematoma -s/p lithotripsy -WBC is downtrending -c/w Meropenem (Started on 12/05) -Repeat CT Abd. Pelvis shows slightly larger hematoma -nephro consult appreciated -zofran PRN for nausea -morphine PRN for pain -ID and Urology consult appreciated -IR consult appreciated, will be NPO after midnight for IR drainage? Did not have procedure today. #BPH c/w Flomax #HTN c/w amlodipine 10mg daily FEN LR @ 50 Replete lytes PRN Sodium controlled diet, NPO after midnight Dvt ppx: scds in light of hematoma dispo: monitoring on med-surg Visit type - Emergency Visit Emergency Visit: Yes ED Registration Date: 11/04/19 Care time: The patient presented to the Emergency Department on the above date and was hospitalized for further evaluation of their emergent condition. - New Patient This patient is new to me today: No - Critical Care Critical Care patient: No - Discharge Referral Referred to [facility] Med P.C.: No ATTENDING PHYSICIAN STATEMENT I saw and evaluated the patient. I reviewed the resident's note and discussed the case with the resident. I agree with the resident's findings and plan as documented. SUBJECTIVE: OBJECTIVE: ASSESSMENT AND PLAN:
[2019-11-17] MEDS ORDERED: DEXTROSE 5%-WATER 100 ML IVPB ONE ×2 (00:48→10:03)
[2019-11-17] MEDS ORDERED: MEROPENEM 1 GM VIAL (RESTRICTED TO ID) IVPB ONE ×2 (00:48→10:03)
[2019-11-17] MEDS: MEROPENEM 1 GM in DEXTROSE 5%-WATER 100 ML IVPB SCH ×2 (01:35→10:25)
--- NOTE | 2019-11-17 07:45 | PN ---
Progress Note, Physician History of Present Illness: pulmonary alert,less abd discomfort,-sob - Current Medication List Current Medications: Active Medications Acetaminophen (Tylenol -) 650 mg PO Q6H PRN PRN Reason: FEVER Last Admin: 11/14/19 19:44 Dose: 650 mg Documented by: Amlodipine Besylate (Norvasc -) 5 mg PO DAILY [facility] Last Admin: 11/16/19 09:25 Dose: 5 mg Documented by: Meropenem 1 gm/ Dextrose 100 mls @ 200 mls/hr IVPB Q8H-IV [facility] Last Admin: 11/17/19 01:35 Dose: 200 mls/hr Documented by: Lactated Ringer's (Lactated Ringers Solution) 1,000 ml in 1,000 mls @ 50 mls/hr IV ASDIR [facility] Last Admin: 11/16/19 16:09 Dose: 50 mls/hr Documented by: Ondansetron HCl (Zofran Injection) 4 mg IVPUSH Q6H PRN PRN Reason: NAUSEA Last Admin: 11/07/19 22:49 Dose: 4 mg Documented by: Tamsulosin HCl (Flomax -) 0.4 mg PO DAILY@0830 [facility] Last Admin: 11/16/19 09:25 Dose: 0.4 mg Documented by: - Objective Vital Signs: Vital Signs Temperature 98 F 11/17/19 06:00 Pulse Rate 74 11/17/19 06:00 Respiratory Rate 18 11/17/19 06:00 Blood Pressure 121/53 L 11/17/19 06:00 O2 Sat by Pulse Oximetry (%) 95 11/17/19 06:00 Constitutional: Yes: Well Nourished, Calm Eyes: Yes: WNL HENT: Yes: WNL Neck: Yes: WNL Cardiovascular: Yes: Regular Rate and Rhythm, S2 Respiratory: Yes: CTA Bilaterally Gastrointestinal: Yes: Normal Bowel Sounds, Soft, Tenderness (LLQ) Extremities: Yes: WNL Edema: No Labs: CBC, BMP Assessment/Plan ASSESSMENT AND PLAN: Left Nephrolithiasis s/p Recent L ESWL Left Renal Subcapsular Hematoma HTN L basilar atelectasis - pain control - antibiotics per Id - percutaneous drainage sub-capsular hematoma by - DVT prophylaxis - Incentive spirometer - trend wbc DR MENDEZ
[2019-11-17 08:37] LABS: HEMATOCRIT 33.1 % (35.4-49); HEMOGLOBIN 11.1 GM/dL (11.7-16.9); MCHC 33.6 g/dl (32.0-35.9); MEAN CELL VOLUME 86.1 fl (80-96); MEAN PLT VOLUME 7.4 fl (7.5-11.1); PLATELET COUNT 593 K/MM3 (134-434); RBC 3.85 M/mm3 (4.00-5.60); WHITE BLOOD COUNT 9.9 K/mm3 (4.0-10.0)
[2019-11-17 09:09] LABS: CREATININE 1.1 mg/dL (0.55-1.3); POTASSIUM 4.5 mmol/L (3.5-5.1)
[2019-11-17] MEDS: TAMSULOSIN HCL 0.4 MG CAP PO SCH (10:25)
[2019-11-17] MEDS: amLODIPine BESYLATE 5 MG TABLET (FP) PO SCH (10:25)
--- NOTE | 2019-11-17 12:44 | PN ---
Teaching Attending Note Name of Resident: Chip Milan ATTENDING PHYSICIAN STATEMENT I saw and evaluated the patient. I reviewed the resident's note and discussed the case with the resident. I agree with the resident's findings and plan as documented. SUBJECTIVE: Seen and examined at bedside. Per urology no intervention planned. Will switch to oral antibiotics and observe over the next 24 hours. If patient is stable may be discharged home. If worse, may require repeat imaging OBJECTIVE Last Vital Signs Temp Pulse Resp BP Pulse Ox 98.4 F 72 20 145/76 98 11/17/19 10:38 11/17/19 10:38 11/17/19 10:38 11/17/19 10:38 11/17/19 10:38 PE: Per resident note Labs/Imaging: reviewed ASSESSMENT/PLAN 59-year-old male past medical history of hypertension, BPH, kidney stones with lithotripsy 3 days prior to admission presented with nausea vomiting and fevers and found to have left subcapsular hematoma. #Left subcapsular hematoma -Per urology no intervention planned. Will switch to oral antibiotics and observe over the next 24 hours. If patient is stable may be discharged home. If worse, may require repeat imaging ID on board PO abx course per ID Pain/nausea control #Pleural effusions BNP 182: no need for echo #BPH Continue Flomax #Hypertension Continue amlodipine
--- NOTE | 2019-11-17 12:51 | PN ---
Progress Note, Physician History of Present Illness: stable pain present - Current Medication List Current Medications: Active Medications Acetaminophen (Tylenol -) 650 mg PO Q6H PRN PRN Reason: FEVER Last Admin: 11/14/19 19:44 Dose: 650 mg Documented by: Amlodipine Besylate (Norvasc -) 5 mg PO DAILY [facility] Last Admin: 11/17/19 10:25 Dose: 5 mg Documented by: Meropenem 1 gm/ Dextrose 100 mls @ 200 mls/hr IVPB Q8H-IV [facility] Last Admin: 11/17/19 10:25 Dose: 200 mls/hr Documented by: Lactated Ringer's (Lactated Ringers Solution) 1,000 ml in 1,000 mls @ 50 mls/hr IV ASDIR [facility] Last Admin: 11/16/19 16:09 Dose: 50 mls/hr Documented by: Ondansetron HCl (Zofran Injection) 4 mg IVPUSH Q6H PRN PRN Reason: NAUSEA Last Admin: 11/07/19 22:49 Dose: 4 mg Documented by: Tamsulosin HCl (Flomax -) 0.4 mg PO DAILY@829 [facility] Last Admin: 11/17/19 10:25 Dose: 0.4 mg Documented by: - Objective Vital Signs: Vital Signs Temperature 98.4 F 11/17/19 10:38 Pulse Rate 72 11/17/19 10:38 Respiratory Rate 20 11/17/19 10:38 Blood Pressure 145/76 11/17/19 10:38 O2 Sat by Pulse Oximetry (%) 98 11/17/19 10:38 Constitutional: Yes: Calm, Mild Distress Cardiovascular: Yes: S1, S2 Respiratory: Yes: Regular, CTA Bilaterally Gastrointestinal: Yes: Normal Bowel Sounds, Soft Musculoskeletal: Yes: WNL Extremities: Yes: WNL Neurological: Yes: Alert, Oriented Psychiatric: Yes: Alert, Oriented Labs: CBC, BMP 11/17/19 08:04 11/17/19 08:04 INR, PTT INR 1.25 (0.83-1.09) H 11/05/19 07:52 Assessment/Plan 59 y/0 male with PMH of Htn. kidney stones (s/p lithotripsy 3 days ago) presents to the ED with complaints of nausea/vomiting, fevers and left sided flank radiating into the groin pain found to have a L subcapsular hematoma on CT scan Left Subcapsular hematoma HTN leukocytosis fever plan continue abx wbc has normalized will see whats the further plan then will decide about abx
--- NOTE | 2019-11-17 14:30 | PN ---
Physical Exam: SUBJECTIVE: Patient seen and examined at bedside. He denies pain at rest, however does endorse the left flank is tender to palpation. Denies subjective fevers, chills. OBJECTIVE: Vital Signs Period Temp Pulse Resp BP Sys/Dutta Pulse Ox Last 24 Hr 97.6 F-99 F 69-78 18-20 115-145/51-76 93-98 GENERAL: The patient is awake, alert, and fully oriented, in no acute distress. HEAD: Normocephalic, atraumatic. EYES: PERRL, extraocular movements intact, sclera anicteric, conjunctiva clear. ENT: Oropharynx clear, without erythema or exudates. Moist mucous membranes. NECK: Trachea midline, full range of motion. Supple without lymphadenopathy. LUNGS: Breath sounds equal, clear to auscultation bilaterally. No wheezes, no crackles. No accessory muscle use. HEART: Regular rate and rhythm. S1, S2 without murmur, rub or gallop. ABDOMEN: Soft, nondistended, nontender to light and deep palpation x4 quadrants. No rebound tenderness, no guarding. Normoactive bowel sounds x4 quadrants. No hepatosplenomegaly, no masses appreciated. Left flank tender to deep palpation. EXTREMITIES: 2+ radial, dorsalis pedis pulses bilaterally. Warm, well-perfused. No lower extremity edema bilaterally. NEUROLOGICAL: Cranial nerves II through XII grossly intact. Normal speech. No gross focal deficits. PSYCH: Normal mood, normal affect upon my encounter. SKIN: Warm, dry. Laboratory Results - last 24 hr 11/17/19 11/17/19 08:04 08:04 WBC 9.9 RBC 3.85 L Hgb 11.1 L Hct 33.1 L MCV 86.1 MCH 29.0 MCHC 33.6 RDW 14.0 Plt Count 593 H MPV 7.4 L Sodium 139 Potassium 4.5 Chloride 106 Carbon Dioxide 27 Anion Gap 6 L BUN 22.0 H Creatinine 1.1 Est GFR (CKD-EPI)AfAm 83.53 Est GFR (CKD-EPI)NonAf 72.07 Random Glucose 91 Calcium 9.0 Active Medications Generic Name Dose Route Start Last Admin Trade Name Freq PRN Reason Stop Dose Admin Acetaminophen 650 mg 11/07/19 15:48 11/14/19 19:44 Tylenol - PO 650 mg Q6H PRN Administration FEVER Amlodipine Besylate 5 mg 08/30/20 10:00 11/17/19 10:25 Norvasc - PO 5 mg DAILY [facility] Administration Meropenem 1 gm/ Dextrose 100 mls @ 200 mls/hr 11/12/19 12:45 11/17/19 10:25 IVPB 200 mls/hr Q8H-IV [facility] Administration Lactated Ringer's 1,000 ml in 1,000 mls @ 50 mls/hr 11/12/19 14:45 11/16/19 16:09 Lactated Ringers Solution IV 50 mls/hr ASDIR [facility] Administration Ondansetron HCl 4 mg 11/07/19 02:00 11/07/19 22:49 Zofran Injection IVPUSH 4 mg Q6H PRN Administration NAUSEA Tamsulosin HCl 0.4 mg 11/07/19 08:30 11/17/19 10:25 Flomax - PO 0.4 mg DAILY@0830 [facility] Administration ASSESSMENT/PLAN: Patient is a 59 year old male with history of hypertension, benign prostatic hyperplasia, nephrolithiasis (s/p lithotripsy 3 days prior to admission) presented with fevers and left sided flank pain, admitted for left sided subcapsular hematoma. Left Subcapsular Renal hematoma -WBC is downtrending. Will discontinue antibiotics and observe. Patient is S/P lithotripsy -Repeat CT abdomen, pelvis (11/11) reveals slightly larger hematoma -ID and Urology, Nephrology consults appreciated. Observing off antibiotics. No indication for oral antibiotics. -IR consult appreciated. Will not be going forward with any planned procedure at this time. If change in clinical status, will have to consider transfer to tertiary care facility. Bilateral pleural effusions -Noted on chest radiography. BNP 182. Low likelihood of CHF. BPH -Continue Tamsulosin HTN -Continue Amlodipine 10mg daily FEN -IV Lactated Ringers at 50mL/ hour -Follow BMP -Sodium controlled diet Prophylaxis -SCDs bilateral lower extremities. Holding chemical anticoagulation in setting of hematoma. Disposition: -Continue care in medical- surgical floor Visit type - Emergency Visit Emergency Visit: Yes ED Registration Date: 11/04/19 Care time: The patient presented to the Emergency Department on the above date and was hospitalized for further evaluation of their emergent condition. - New Patient This patient is new to me today: Yes Date on this admission: 11/17/19 - Critical Care Critical Care patient: No - Discharge Referral Referred to [facility] Med P.C.: No ATTENDING PHYSICIAN STATEMENT I saw and evaluated the patient. I reviewed the resident's note and discussed the case with the resident. I agree with the resident's findings and plan as documented. SUBJECTIVE: OBJECTIVE: ASSESSMENT AND PLAN:
--- NOTE | 2019-11-18 07:56 | CONSULT ---
Consult - text type - Consultation Consultation Note: CC: subcapsular hematoma s/p ESWL HPI: Patient is comfortable without nausea, vomiting, fever, or chills PE VSS: afeb abd- mild left CVAT imp left subcapsular renal hematoma s/p ESWL plan would consider changing to po antibiotics and observe patient no procedures are scheduled for patient at this time as drainage of a stable hematoma in a hemodynamically stable patient may lead to further bleeding
[2019-11-18 08:08] LABS: HEMATOCRIT 33.4 % (35.4-49); HEMOGLOBIN 11.3 GM/dL (11.7-16.9); MCH 29.3 pg (25.7-33.7); MCHC 33.9 g/dl (32.0-35.9); MEAN CELL VOLUME 86.3 fl (80-96); MEAN PLT VOLUME 7.7 fl (7.5-11.1); PLATELET COUNT 560 K/MM3 (134-434); RBC 3.87 M/mm3 (4.00-5.60); WHITE BLOOD COUNT 9.9 K/mm3 (4.0-10.0)
[2019-11-18 08:38] LABS: ALBUMIN 3.3 g/dl (3.4-5.0); BILIRUBIN,TOTAL 0.6 mg/dL (0.2-1); BLOOD UREA NITROGEN 25.4 mg/dL (7-18); CALCIUM 9.2 mg/dL (8.5-10.1); CREATININE 1.1 mg/dL (0.55-1.3)
--- NOTE | 2019-11-18 09:21 | PN ---
Progress Note, Physician History of Present Illness: stable pain better - Current Medication List Current Medications: Active Medications Acetaminophen (Tylenol -) 650 mg PO Q6H PRN PRN Reason: FEVER Last Admin: 11/14/19 19:44 Dose: 650 mg Documented by: Amlodipine Besylate (Norvasc -) 5 mg PO DAILY [facility] Last Admin: 11/17/19 10:25 Dose: 5 mg Documented by: Lactated Ringer's (Lactated Ringers Solution) 1,000 ml in 1,000 mls @ 50 mls/hr IV ASDIR [facility] Last Admin: 11/16/19 16:09 Dose: 50 mls/hr Documented by: Ondansetron HCl (Zofran Injection) 4 mg IVPUSH Q6H PRN PRN Reason: NAUSEA Last Admin: 11/07/19 22:49 Dose: 4 mg Documented by: Tamsulosin HCl (Flomax -) 0.4 mg PO DAILY@0830 [facility] Last Admin: 11/17/19 10:25 Dose: 0.4 mg Documented by: - Objective Vital Signs: Vital Signs Temperature 99.3 F 11/18/19 06:00 Pulse Rate 70 11/18/19 06:00 Respiratory Rate 18 11/18/19 06:00 Blood Pressure 136/81 11/18/19 06:00 O2 Sat by Pulse Oximetry (%) 97 11/18/19 06:00 Constitutional: Yes: No Distress, Calm Cardiovascular: Yes: S1, S2 Respiratory: Yes: Regular, CTA Bilaterally Gastrointestinal: Yes: Normal Bowel Sounds, Soft Musculoskeletal: Yes: WNL Extremities: Yes: WNL Neurological: Yes: Alert, Oriented Psychiatric: Yes: Alert, Oriented Labs: CBC, BMP 11/18/19 07:05 11/18/19 07:05 INR, PTT INR 1.25 (0.83-1.09) H 11/05/19 07:52 Assessment/Plan 59 y/0 male with PMH of Htn. kidney stones (s/p lithotripsy 3 days ago) presents to the ED with complaints of nausea/vomiting, fevers and left sided flank radiating into the groin pain found to have a L subcapsular hematoma on CT scan Left Subcapsular hematoma HTN leukocytosis fever plan change to po abx monitor wbc monitor clinical signs rest as per the team
[2019-11-18] MEDS: TAMSULOSIN HCL 0.4 MG CAP PO SCH (09:29)
[2019-11-18] MEDS: amLODIPine BESYLATE 5 MG TABLET (FP) PO SCH (09:29)
[2019-11-18] MEDS: LACTATED RINGERS SOLUTION 1,000 ML/1,000 ML INFUS.BAG IV SCH (11:48)
--- NOTE | 2019-11-18 12:13 | PN ---
Progress Note, Physician History of Present Illness: Pt seen and examined at bedside. He says that pain is markedly improved. - Current Medication List Current Medications: Active Medications Acetaminophen (Tylenol -) 650 mg PO Q6H PRN PRN Reason: FEVER Last Admin: 11/14/19 19:44 Dose: 650 mg Documented by: Amlodipine Besylate (Norvasc -) 5 mg PO DAILY [facility] Last Admin: 11/18/19 09:29 Dose: 5 mg Documented by: Ondansetron HCl (Zofran Injection) 4 mg IVPUSH Q6H PRN PRN Reason: NAUSEA Last Admin: 11/07/19 22:49 Dose: 4 mg Documented by: Tamsulosin HCl (Flomax -) 0.4 mg PO DAILY@0830 [facility] Last Admin: 11/18/19 09:29 Dose: 0.4 mg Documented by: - Objective Vital Signs: Vital Signs Temperature 98.8 F 11/18/19 10:00 Pulse Rate 83 11/18/19 10:00 Respiratory Rate 18 11/18/19 10:00 Blood Pressure 141/54 L 11/18/19 10:00 O2 Sat by Pulse Oximetry (%) 100 11/18/19 10:00 Constitutional: Yes: Calm Eyes: Yes: Conjunctiva Clear HENT: Yes: Atraumatic Neck: Yes: Supple Cardiovascular: Yes: S1, S2 Respiratory: Yes: CTA Bilaterally Gastrointestinal: Yes: Soft Genitourinary: Yes: WNL Musculoskeletal: Yes: WNL Edema: No Neurological: Yes: Oriented Psychiatric: Yes: Oriented Labs: CBC, BMP 11/18/19 07:05 11/18/19 07:05 INR, PTT INR 1.25 (0.83-1.09) H 11/05/19 07:52 Problem List - Problems (1) Abdominal pain Code(s): R10.9 - UNSPECIFIED ABDOMINAL PAIN Qualifiers: Abdominal location: left lower quadrant Qualified Code(s): R10.32 - Left lower quadrant pain (2) Renal hematoma Code(s): S37.019A - MINOR CONTUSION OF UNSPECIFIED KIDNEY, INITIAL ENCOUNTER Qualifiers: Encounter type: initial encounter Laterality: left Qualified Code(s): S37.012A - Minor contusion of left kidney, initial encounter Assessment/Plan Current Medications Generic Name Dose Route Start Last Admin Trade Name Freq PRN Reason Stop Dose Admin Acetaminophen 650 mg 08/30/20 15:48 11/14/19 19:44 Tylenol - PO 650 mg Q6H PRN Administration FEVER Amlodipine Besylate 5 mg 11/07/19 10:00 11/18/19 09:29 Norvasc - PO 5 mg DAILY [facility] Administration Ondansetron HCl 4 mg 11/07/19 02:00 11/07/19 22:49 Zofran Injection IVPUSH 4 mg Q6H PRN Administration NAUSEA Tamsulosin HCl 0.4 mg 11/07/19 08:30 11/18/19 09:29 Flomax - PO 0.4 mg DAILY@0830 [facility] Administration Impression 1. shameka improving 2. nephrolithiasis 3. left renal sub-capsular hematoma 4. 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
--- NOTE | 2019-11-18 12:38 | PN ---
Teaching Attending Note Name of Resident: Chip Milan ATTENDING PHYSICIAN STATEMENT I saw and evaluated the patient. I reviewed the resident's note and discussed the case with the resident. I agree with the resident's findings and plan as documented. SUBJECTIVE: Seen and examined at bedside. Patient reports pain is improved. Pending repeat CT scan to assess size of hematoma. Observe off antibiotics for additional 24 hours. If hematoma size is not increasing and afebrile with stable white count patient will be discharged tomorrow OBJECTIVE Last Vital Signs Temp Pulse Resp BP Pulse Ox 98.4 F 72 20 145/76 98 11/17/19 10:38 11/17/19 10:38 11/17/19 10:38 11/17/19 10:38 11/17/19 10:38 PE: Per resident note Labs/Imaging: reviewed ASSESSMENT/PLAN 59-year-old male past medical history of hypertension, BPH, kidney stones with lithotripsy 3 days prior to admission presented with nausea vomiting and fevers and found to have left subcapsular hematoma. #Left subcapsular hematoma -Per urology no intervention planned. observing off abx. repeat CT scan to assess size of hematoma. Observe off antibiotics for additional 24 hours. If hematoma size is not increasing and afebrile with stable white count patient will be discharged tomorrow ID on board PO abx course per ID Pain/nausea control #Pleural effusions BNP 182: no need for echo #BPH Continue Flomax #Hypertension Continue amlodipine
--- NOTE | 2019-11-18 14:53 | PN ---
Physical Exam: SUBJECTIVE: Patient seen and examined at bedside. He endorses improvement of his flank pain. Denies subjective fevers, chills. OBJECTIVE: Vital Signs Period Temp Pulse Resp BP Sys/Dutta Pulse Ox Last 24 Hr 98.1 F-99.4 F 66-83 18-21 130-141/54-81 94-100 GENERAL: The patient is awake, alert, and fully oriented, in no acute distress. HEAD: Normocephalic, atraumatic. EYES: PERRL, extraocular movements intact, sclera anicteric, conjunctiva clear. ENT: Oropharynx clear, without erythema or exudates. Moist mucous membranes. NECK: Trachea midline, full range of motion. Supple without lymphadenopathy. LUNGS: Breath sounds equal, clear to auscultation bilaterally. No wheezes, no crackles. No accessory muscle use. HEART: Regular rate and rhythm. S1, S2 without murmur, rub or gallop. ABDOMEN: Soft, nondistended, nontender to light and deep palpation x4 quadrants. No rebound tenderness, no guarding. Normoactive bowel sounds x4 quadrants. No hepatosplenomegaly, no masses appreciated. Left flank fullness, minimaly tender to deep palpation. EXTREMITIES: 2+ radial, dorsalis pedis pulses bilaterally. Warm, well-perfused. No lower extremity edema bilaterally. NEUROLOGICAL: Cranial nerves II through XII grossly intact. Normal speech. No gross focal deficits. PSYCH: Normal mood, normal affect upon my encounter. SKIN: Warm, dry. Laboratory Results - last 24 hr 11/18/19 11/18/19 07:05 07:05 WBC 9.9 RBC 3.87 L Hgb 11.3 L Hct 33.4 L MCV 86.3 MCH 29.3 MCHC 33.9 RDW 14.0 Plt Count 560 H MPV 7.7 Sodium 139 Potassium 5.0 Chloride 105 Carbon Dioxide 28 Anion Gap 6 L BUN 25.4 H Creatinine 1.1 Est GFR (CKD-EPI)AfAm 83.53 Est GFR (CKD-EPI)NonAf 72.07 Random Glucose 90 Calcium 9.2 Total Bilirubin 0.6 AST 15 ALT 27 Alkaline Phosphatase 56 Total Protein 7.0 Albumin 3.3 L Active Medications Generic Name Dose Route Start Last Admin Trade Name Freq PRN Reason Stop Dose Admin Acetaminophen 650 mg 11/07/19 15:48 11/14/19 19:44 Tylenol - PO 650 mg Q6H PRN Administration FEVER Amlodipine Besylate 5 mg 11/07/19 10:00 11/18/19 09:29 Norvasc - PO 5 mg DAILY DERICK Administration Ondansetron HCl 4 mg 11/07/19 02:00 11/07/19 22:49 Zofran Injection IVPUSH 4 mg Q6H PRN Administration NAUSEA Tamsulosin HCl 0.4 mg 11/07/19 08:30 11/18/19 09:29 Flomax - PO 0.4 mg DAILY@0830 DERICK Administration ASSESSMENT/PLAN: Patient is a 59 year old male with history of hypertension, benign prostatic hyperplasia, nephrolithiasis (s/p lithotripsy 3 days prior to admission) presented with fevers and left sided flank pain, admitted for left sided subcapsular hematoma. Left Subcapsular Renal hematoma -WBC is downtrending. Observing off antibiotics. Patient is S/P lithotripsy -Follow repeat CT abdomen, pelvis today. -ID and Urology, Nephrology consults appreciated. Observing off antibiotics. No indication for oral antibiotics. -IR consult appreciated. Will not be going forward with any planned procedure at this time. If change in clinical status, will have to consider transfer to tertiary care facility. Bilateral pleural effusions -Noted on chest radiography. BNP 182. Low likelihood of CHF. BPH -Continue Tamsulosin HTN -Continue Amlodipine 10mg daily FEN -IV Lactated Ringers at 50mL/ hour -Follow BMP -Sodium controlled diet Prophylaxis -SCDs bilateral lower extremities. Holding chemical anticoagulation in setting of hematoma. Disposition: -Continue care in medical- surgical floor Visit type - Emergency Visit Emergency Visit: Yes ED Registration Date: 11/04/19 Care time: The patient presented to the Emergency Department on the above date and was hospitalized for further evaluation of their emergent condition. - New Patient This patient is new to me today: No - Critical Care Critical Care patient: No - Discharge Referral Referred to [facility] No ATTENDING PHYSICIAN STATEMENT I saw and evaluated the patient. I reviewed the resident's note and discussed the case with the resident. I agree with the resident's findings and plan as documented. SUBJECTIVE: OBJECTIVE: ASSESSMENT AND PLAN:
[2019-11-19 08:15] LABS: HEMATOCRIT 34.4 % (35.4-49); HEMOGLOBIN 11.6 GM/dL (11.7-16.9); MCH 29.1 pg (25.7-33.7); MCHC 33.8 g/dl (32.0-35.9); MEAN CELL VOLUME 86.1 fl (80-96); MEAN PLT VOLUME 7.7 fl (7.5-11.1); PLATELET COUNT 572 K/MM3 (134-434); WHITE BLOOD COUNT 9.1 K/mm3 (4.0-10.0)
[2019-11-19 08:23] LABS: BLOOD UREA NITROGEN 27.6 mg/dL (7-18); CREATININE 1.1 mg/dL (0.55-1.3); POTASSIUM 4.9 mmol/L (3.5-5.1)
[2019-11-19] MEDS: TAMSULOSIN HCL 0.4 MG CAP PO SCH (09:32)
[2019-11-19] MEDS: amLODIPine BESYLATE 5 MG TABLET (FP) PO SCH (09:32)
--- NOTE | 2019-11-19 12:00 | PN ---
Progress Note, Physician History of Present Illness: stable pain better - Current Medication List Current Medications: Active Medications Acetaminophen (Tylenol -) 650 mg PO Q6H PRN PRN Reason: FEVER Last Admin: 11/14/19 19:44 Dose: 650 mg Documented by: Amlodipine Besylate (Norvasc -) 5 mg PO DAILY [facility] Last Admin: 11/19/19 09:32 Dose: 5 mg Documented by: Ondansetron HCl (Zofran Injection) 4 mg IVPUSH Q6H PRN PRN Reason: NAUSEA Last Admin: 11/07/19 22:49 Dose: 4 mg Documented by: Tamsulosin HCl (Flomax -) 0.4 mg PO DAILY@0830 [facility] Last Admin: 11/19/19 09:32 Dose: 0.4 mg Documented by: - Objective Vital Signs: Vital Signs Temperature 99.2 F 11/19/19 05:00 Pulse Rate 72 11/19/19 09:00 Respiratory Rate 18 11/19/19 09:00 Blood Pressure 150/70 11/19/19 09:00 O2 Sat by Pulse Oximetry (%) 97 11/19/19 09:00 Constitutional: Yes: No Distress, Calm Cardiovascular: Yes: S1, S2 Respiratory: Yes: Regular, CTA Bilaterally Musculoskeletal: Yes: WNL Extremities: Yes: WNL Integumentary: Yes: WNL Neurological: Yes: Alert, Oriented Psychiatric: Yes: Alert, Oriented Labs: CBC, BMP 11/19/19 07:21 11/19/19 07:21 INR, PTT INR 1.25 (0.83-1.09) H 11/05/19 07:52 - ....Imaging Cat Scan: Report Reviewed, Image Reviewed Assessment/Plan 59 y/0 male with PMH of Htn. kidney stones (s/p lithotripsy 3 days ago) presents to the ED with complaints of nausea/vomiting, fevers and left sided flank radiating into the groin pain found to have a L subcapsular hematoma on CT scan Left Subcapsular hematoma HTN leukocytosis fever plan continue current mgmt rest as per the team
--- NOTE | 2019-11-19 13:40 | PN ---
Teaching Attending Note Name of Resident: Chip Milan ATTENDING PHYSICIAN STATEMENT I saw and evaluated the patient. I reviewed the resident's note and discussed the case with the resident. I agree with the resident's findings and plan as documented. SUBJECTIVE: Seen and examined at bedside. Patient reports pain improved. Hemodynamically stable and afebrile off antibiotics. CT shows decrease in size of hematoma. Patient is medically cleared for discharge OBJECTIVE Last Vital Signs Temp Pulse Resp BP Pulse Ox 99.2 F 72 18 150/70 97 11/19/19 05:00 11/19/19 09:00 11/19/19 09:00 11/19/19 09:00 11/19/19 09:00 PE: Per resident note Labs/Imaging: reviewed ASSESSMENT/PLAN 59-year-old male past medical history of hypertension, BPH, kidney stones with lithotripsy 3 days prior to admission presented with nausea vomiting and fevers and found to have left subcapsular hematoma. Patient had prolonged stay due to continued fevers and increase in the size of the hematoma with concern for infectious hematoma requiring IV antibiotics. Patient was seen by IR and urology who recommended no surgical intervention. Repeat CT now shows decrease in size of hematoma with improved pain and patient is hemodynamically stable and afebrile off antibiotics for 2 days. Patient is medically cleared for discharge.He will follow-up with Dr. Anthony Donovan outpatient for further management of a subcapsular hematoma
--- NOTE | 2019-11-19 13:42 | DS ---
Physical Exam: SUBJECTIVE: Patient seen and examined at bedside. No acute overnight events. Patient is eager to go home. Denies subjective fevers, chills, shortness of breath, chest pain, palpitations, abdominal pain, nausea, vomiting, diarrhea, constipation, dysuria, hematuria. OBJECTIVE: Vital Signs Period Temp Pulse Resp BP Sys/Dutta Pulse Ox Last 24 Hr 98.6 F-99.2 F 66-72 18-18 133-150/64-78 96-98 PHYSICAL EXAM GENERAL: The patient is awake, alert, and fully oriented, in no acute distress. HEAD: Normocephalic, atraumatic. EYES: PERRL, extraocular movements intact, sclera anicteric, conjunctiva clear. ENT: Oropharynx clear, without erythema or exudates. Moist mucous membranes. NECK: Trachea midline, full range of motion. Supple without lymphadenopathy. LUNGS: Breath sounds equal, clear to auscultation bilaterally. No wheezes, no crackles. No accessory muscle use. HEART: Regular rate and rhythm. S1, S2 without murmur, rub or gallop. ABDOMEN: Soft, nondistended, nontender to light and deep palpation x4 quadrants. No rebound tenderness, no guarding. Normoactive bowel sounds x4 quadrants. No hepatosplenomegaly, no masses appreciated. Left flank fullness, nontender to palpaiton. EXTREMITIES: 2+ radial, dorsalis pedis pulses bilaterally. Warm, well-perfused. No lower extremity edema bilaterally. NEUROLOGICAL: Cranial nerves II through XII grossly intact. Normal speech. No gross focal deficits. PSYCH: Normal mood, normal affect upon my encounter. SKIN: Warm, dry. LABS Laboratory Results - last 24 hr 11/19/19 11/19/19 07:21 07:21 WBC 9.1 RBC 4.00 Hgb 11.6 L Hct 34.4 L MCV 86.1 MCH 29.1 MCHC 33.8 RDW 14.0 Plt Count 572 H MPV 7.7 Sodium 139 Potassium 4.9 Chloride 105 Carbon Dioxide 27 Anion Gap 6 L BUN 27.6 H Creatinine 1.1 Est GFR (CKD-EPI)AfAm 83.53 Est GFR (CKD-EPI)NonAf 72.07 Random Glucose 88 Calcium 9.0 HOSPITAL COURSE: Date of Admission:11/04/19 Date of Discharge: 11/19/19 Patient is a 59 year old male with history of hypertension, benign prostatic hyperplasia, nephrolithiasis (s/p lithotripsy 3 days prior to admission) presented with fevers and left sided flank pain, admitted for left sided subcapsular renal hematoma (noted on CT abdomen, pelvis). Patient was evaluated by Nephrology, Urology, Infectious disease, and interventional radiology physicians. He was initiated on antibiotics, however after course, was monitored off antibiotics. Repeat CT abdomen, pelvis ultimately revealed interval decrease in size of subcapsular hematoma. Decision was made not to go forward with surgical intervention given risks outweighed benefits, discussed with patient at length. Discharged home with follow up with primary care physician, urologist, senior energy analyst. Minutes to complete discharge: 36 Discharge Summary Problems reviewed: Yes Reason For Visit: KIDNEY HEMATOMA LEUKOCYTOSIS Current Active Problems Abdominal pain (Acute) Renal hematoma (Acute) Condition: Stable - Instructions Diet, Activity, Other Instructions: You were admitted to the hospital for evaluation of nausea, vomiting. You were found to have subcapsular hematoma of your left kidney on your CT scans. You were evaluated by the Music Instructor, Urologist, Infectious disease physician. You were treated with IV antibiotics, and decision was made not to surgically intervene at this time. You are stable for discharge home. DO NOT take your aspirin any more. It is recommended to stop the aspirin until your hematoma has resolved. Discuss with your primary care physician. Continue taking your home medications as directed Follow up with your primary care physician within one -two days after discharge. A referral has been provided. Follow up with urologist (Dr. Fuentes). A referral has been provided. Please call phone number on the referral to schedule appointment. Follow up with senior energy analyst (Dr. Fuentes). A referral has been provided. Return to the nearest emergency department if you experience worsening symptoms, subjective fevers, chills, shortness of breath, chest pain, palpitations, abdominal pain, nausea, vomiting, any trauma or loss of consciousness. Referrals: Earl Fuentes MD [Staff Physician] - 1 Week ON STAFF,NOT [Primary Care Provider] - 1 Week Maryanne Fuentes MD [Staff Physician] - 1 Week Disposition: HOME - Home Medications Comprehensive Discharge Medication List: Ambulatory Orders Amlodipine Besylate 10 mg PO DAILY 10/14/19 Tamsulosin HCl [Flomax] 0.4 mg PO DAILY 10/14/19 Mirabegron [Myrbetriq] 50 mg PO DAILY 11/04/19 This patient is new to me today: No Emergency Visit: Yes ED Registration Date: 11/04/19 Care time: The patient presented to the Emergency Department on the above date and was hospitalized for further evaluation of their emergent condition. Critical Care patient: No - Discharge Referral Referred to [facility] No ATTENDING PHYSICIAN STATEMENT I saw and evaluated the patient. I reviewed the resident's note and discussed the case with the resident. I agree with the resident's findings and plan as documented. SUBJECTIVE: OBJECTIVE: ASSESSMENT AND PLAN:
[2019-11-19 14:56] VITALS: BP 121/74; PULSE 87; TEMP 98.3
== END 2019-11-19 15:12 | disposition home or self-care (01) | DRG 919 ==
LOC: JER 10:50 → JERBED 19:23 → J5S 11-05 00:10 → JICU 11-05 18:21 → J5S 11-07 06:27
PROVIDERS: ADMIT Student in an Organized Health Care Education/Training Program; ATTEND Internal Medicine
DX: N99.840 Postprocedural hematoma of a genitourinary system organ or structure following a genitourinary system procedure (principal); A41.89 Other specified sepsis; S37.012A Minor contusion of left kidney, initial encounter; N17.9 Acute kidney failure, unspecified; J98.11 Atelectasis; J90 Pleural effusion, not elsewhere classified; R11.2 Nausea with vomiting, unspecified; R10.32 Left lower quadrant pain; X58.XXXA Exposure to other specified factors, initial encounter; Y92.89 Other specified places as the place of occurrence of the external cause; D72.829 Elevated white blood cell count, unspecified; R00.0 Tachycardia, unspecified; N40.0 Benign prostatic hyperplasia without lower urinary tract symptoms
CPT/HCPCS: 36415; 36430; 71045-TC-FY; 71250-TC; 74176-TC; 74178-TC; 80048; 80053; 81003; 82550; 83605; 83690; 83735; 83880; 84100; 85025; 85027; 85610; 85730; 86850; 86900; 86901; 87040; 87086; 93005; 93010; 94010; 99285-25; J0131; P9017; Q9967; U0003

== ENCOUNTER 2023-03-04 13:05 | Emergency (ER) | payer BC ==
[2023-03-04] MEDS ORDERED: KETOROLAC TROMETHAMINE 30 MG/1 ML VIAL IVPUSH ONE (14:02)
[2023-03-04] MEDS ORDERED: ONDANSETRON 4 MG/2 ML VIAL IVPUSH ONE (14:02)
[2023-03-04] MEDS ORDERED: KETOROLAC TROMETHAMINE 30 MG/1 ML VIAL ONE (14:21)
[2023-03-04] MEDS ORDERED: ONDANSETRON 4 MG/2 ML VIAL ONE (14:21)
[2023-03-04 14:26] LABS: BASO % 0.4 % (0-2.0); EOS % 0.4 % (0-4.5); HEMATOCRIT 39.2 % (35.4-49); HEMOGLOBIN 13.3 GM/dL (11.7-16.9); LYMPH % 11.2 % (8-40); MCH 29.8 pg (25.7-33.7); MCHC 33.9 g/dl (32.0-35.9); MEAN CELL VOLUME 88.1 fl (80-96); MEAN PLT VOLUME 9.2 fl (7.5-11.1); MONO % 5.4 % (3.8-10.2); NEUT % 82.6 % (42.8-82.8); PLATELET COUNT 183 10^3/uL (134-434); RBC 4.45 M/mm3 (4.00-5.60); RDW 12.9 % (11.9-15.9); WHITE BLOOD COUNT 10.9 K/mm3 (4.0-10.0)
[2023-03-04 14:32] LABS: INR 1.12 (0.83-1.09)
[2023-03-04 14:34] LABS: ACTIVATED PTT 28.2 SECONDS (25.2-36.5)
[2023-03-04 14:37] LABS: PH,URINE 5.5 (5.0-8.0); URINE APPEARANCE Clear; URINE BILIRUBIN Negative (NEGATIVE); URINE COLOR Yellow; URINE GLUCOSE (UA) Negative (NEGATIVE); URINE KETONE Trace (NEGATIVE); URINE LEUK ESTERASE Negative (NEGATIVE); URINE NITRITE Negative (NEGATIVE); URINE PROTEIN Negative (NEGATIVE); URINE RBC 0-3 /uL (0-23.9); URINE UROBILINOGEN 0.2 mg/dL (0.2-1.0); URINE WBC 0-3 /uL (0-25.8)
[2023-03-04 14:45] LABS: POTASSIUM 4.4 mmol/L (3.5-5.1)
[2023-03-04 14:47] LABS: ALBUMIN 3.9 g/dl (3.4-5.0); CALCIUM 9.2 mg/dL (8.5-10.1)
[2023-03-04 14:49] LABS: BLOOD UREA NITROGEN 33.5 mg/dL (7-18); MAGNESIUM 2.3 mg/dL (1.8-2.4)
[2023-03-04 14:51] LABS: CREATININE 1.6 mg/dL (0.55-1.3); PHOSPHOROUS 2.1 mg/dL (2.5-4.9)
[2023-03-04 14:53] LABS: BILIRUBIN,TOTAL 0.3 mg/dL (0.2-1); TOT PROT 7.2 g/dl (6.4-8.2)
[2023-03-04 16:10] VITALS: BP 123/61; PULSE 82; RESP 18; TEMP 97; BMI 28.1
== END 2023-03-04 17:13 | disposition home or self-care (01) ==
LOC: JER 13:05
PROC: 3E033NZ Introduction of Analgesics, Hypnotics, Sedatives into Peripheral Vein, Percutaneous Approach (ICD-10-PCS; principal; 2023-03-04)
PROC: 3E033GC Introduction of Other Therapeutic Substance into Peripheral Vein, Percutaneous Approach (ICD-10-PCS; 2023-03-04)
DX: R10.32 Left lower quadrant pain (principal); R11.0 Nausea; R42 Dizziness and giddiness
CPT/HCPCS: 36415; 74176-TC; 80053; 81003; 83605; 83690; 83735; 84100; 84484; 85025; 85610; 85730; 86850; 86900; 86901; 99284-25

== ENCOUNTER 2023-11-08 10:47 | Observation (INO) | payer BC ==
[2023-11-08 10:55] VITALS: BMI 27.8
[2023-11-08] MEDS ORDERED: ACETAMINOPHEN INJECTION 100 ML ONE (11:50)
[2023-11-08 11:56] LABS: BASO % 0.2 % (0-2.0); EOS % 1.8 % (0-4.5); HEMATOCRIT 38.9 % (35.4-49); HEMOGLOBIN 13.6 GM/dL (11.7-16.9); LYMPH % 30.8 % (8-40); MCH 30.6 pg (25.7-33.7); MCHC 35.1 g/dl (32.0-35.9); MEAN CELL VOLUME 87.3 fl (80-96); MONO % 4.9 % (3.8-10.2); NEUT % 62.3 % (42.8-82.8); PLATELET COUNT 198 10^3/uL (134-434); RBC 4.46 M/mm3 (4.00-5.60); RDW 12.9 % (11.9-15.9); WHITE BLOOD COUNT 11.7 K/mm3 (4.0-10.0)
[2023-11-08] MEDS: ACETAMINOPHEN 1000 MG/100 ML BAG IVPB ONE (11:58)
[2023-11-08] MEDS: SODIUM CHLORIDE 0.9% 500 ML INFUS.BAG IV ONE (11:58)
[2023-11-08 12:13] LABS: POTASSIUM 4.4 mmol/L (3.5-5.1)
[2023-11-08 12:15] LABS: BLOOD UREA NITROGEN 27.8 mg/dL (7-18); CALCIUM 9.5 mg/dL (8.5-10.1)
[2023-11-08 12:17] LABS: CREATININE 1.3 mg/dL (0.55-1.3)
[2023-11-08 12:20] LABS: BILIRUBIN,TOTAL 0.6 mg/dL (0.2-1); TOT PROT 7.6 g/dl (6.4-8.2)
[2023-11-08 12:23] LABS: N-TERMINAL BNP 47.6 pg/ml (5-125)
[2023-11-08 13:08] LABS: HIV INTERPRETATION NEGATIVE (NEGATIVE)
[2023-11-08] MEDS ORDERED: AZITHROMYCIN 500 MG TABLET ONE (17:31)
[2023-11-08] MEDS: AZITHROMYCIN 250 MG TABLET PO SCH (17:39)
[2023-11-09] MEDS: guaiFENesin 200 MG/10 ML 10 ML UNIT-DOSE CUPS PO PRN (05:38)
[2023-11-09] MEDS ORDERED: PATIENT'S OWN MEDICATION (NON-FORMULARY) (Mirabegron [Myrbetriq] 50 MG Tab.Er.24h) PO SCH (10:00)
[2023-11-09] MEDS: TAMSULOSIN HCL 0.4 MG CAP PO SCH (10:30)
[2023-11-09] MEDS: amLODIPine BESYLATE 10 MG TABLET (FP) PO SCH (10:30)
[2023-11-09] MEDS: ACETAMINOPHEN 325 MG TABLET (FP) PO PRN (13:46)
[2023-11-09] MEDS: methylPREDNISolone NA SUCC 40 MG/1 ML VIAL IVPUSH SCH (13:47)
[2023-11-09] MEDS: ALBUTEROL SO4 0.083% IH SOL 2.5 MG/3 ML VIAL.NEB. NEB SCH (15:29)
[2023-11-10 06:15] VITALS: RESP 18
[2023-11-10 09:17] LABS: HEMOGLOBIN 13.2 GM/dL (11.7-16.9); MCH 30.4 pg (25.7-33.7); MCHC 34.7 g/dl (32.0-35.9); MEAN CELL VOLUME 87.7 fl (80-96); MEAN PLT VOLUME 9.1 fl (7.5-11.1); PLATELET COUNT 212 10^3/uL (134-434); RBC 4.33 M/mm3 (4.00-5.60); RDW 12.6 % (11.9-15.9); WHITE BLOOD COUNT 17.1 K/mm3 (4.0-10.0)
[2023-11-10 09:46] LABS: POTASSIUM 3.8 mmol/L (3.5-5.1)
[2023-11-10 09:52] LABS: ALBUMIN 3.8 g/dl (3.4-5.0)
[2023-11-10 09:53] LABS: CALCIUM 9.3 mg/dL (8.5-10.1)
[2023-11-10 09:54] LABS: BLOOD UREA NITROGEN 34.5 mg/dL (7-18)
[2023-11-10 09:56] LABS: CREATININE 1.2 mg/dL (0.55-1.3)
[2023-11-10 09:57] LABS: BILIRUBIN,TOTAL 1.1 mg/dL (0.2-1); TOT PROT 7.4 g/dl (6.4-8.2)
[2023-11-10] MEDS: TAMSULOSIN HCL 0.4 MG CAP PO SCH (10:28)
[2023-11-10 13:48] LABS: URINE APPEARANCE CLEAR; URINE BILIRUBIN NEGATIVE (NEGATIVE); URINE COLOR YELLOW; URINE GLUCOSE (UA) NEGATIVE (NEGATIVE); URINE KETONE NEGATIVE (NEGATIVE); URINE LEUK ESTERASE NEGATIVE (NEGATIVE); URINE NITRITE NEGATIVE (NEGATIVE); URINE PROTEIN NEGATIVE (NEGATIVE); URINE UROBILINOGEN 0.2 mg/dL (0.2-1.0)
[2023-11-10] MEDS: LACTATED RINGERS SOLUTION 1,000 ML/1,000 ML INFUS.BAG IV SCH ×2 (14:42→16:25)
[2023-11-10] MEDS: LACTATED RINGERS SOLUTION 1,000 ML/1,000 ML INFUS.BAG IV STA (14:49)
[2023-11-10] MEDS ORDERED: amLODIPine BESYLATE 10 MG TABLET (FP) PO SCH (15:26)
[2023-11-11 08:54] LABS: HEMATOCRIT 35.7 % (35.4-49); HEMOGLOBIN 12.1 GM/dL (11.7-16.9); MCH 30.1 pg (25.7-33.7); MEAN CELL VOLUME 88.6 fl (80-96); PLATELET COUNT 217 10^3/uL (134-434); RBC 4.03 M/mm3 (4.00-5.60); RDW 12.7 % (11.9-15.9); WHITE BLOOD COUNT 21.1 K/mm3 (4.0-10.0)
[2023-11-11 09:11] LABS: POTASSIUM 4.3 mmol/L (3.5-5.1)
[2023-11-11 09:14] LABS: ALBUMIN 3.4 g/dl (3.4-5.0); BLOOD UREA NITROGEN 34.5 mg/dL (7-18); CALCIUM 9.2 mg/dL (8.5-10.1)
[2023-11-11 09:18] LABS: CREATININE 1.2 mg/dL (0.55-1.3)
[2023-11-11 09:19] LABS: BILIRUBIN,TOTAL 0.6 mg/dL (0.2-1); TOT PROT 6.6 g/dl (6.4-8.2)
[2023-11-11] MEDS ORDERED: amLODIPine BESYLATE 5 MG TABLET (FP) PO SCH (10:00)
[2023-11-11 15:01] VITALS: BP 131/68; PULSE 90; TEMP 98.2
[2023-11-12] MEDS ORDERED: methylPREDNISolone NA SUCC 40 MG/1 ML VIAL IVPUSH SCH (10:00)
== END 2023-11-11 17:38 | disposition home or self-care (01) ==
LOC: JER 10:47 → JERBED 17:05 → J4S 19:31
PROVIDERS: ADMIT Internal Medicine; ATTEND Nurse Practitioner
PROC: 0HQ1XZZ Repair Face Skin, External Approach (ICD-10-PCS; principal; 2023-11-08)
PROC: 3E033NZ Introduction of Analgesics, Hypnotics, Sedatives into Peripheral Vein, Percutaneous Approach (ICD-10-PCS; 2023-11-08)
PROC: 3E0337Z Introduction of Electrolytic and Water Balance Substance into Peripheral Vein, Percutaneous Approach (ICD-10-PCS; 2023-11-08)
PROC: 3E033GC Introduction of Other Therapeutic Substance into Peripheral Vein, Percutaneous Approach (ICD-10-PCS; 2023-11-08)
DX: J06.9 Acute upper respiratory infection, unspecified (principal); B34.9 Viral infection, unspecified; S01.81XA Laceration without foreign body of other part of head, initial encounter; W18.39XA Other fall on same level, initial encounter; Y93.89 Activity, other specified; Y92.009 Unspecified place in unspecified non-institutional (private) residence as the place of occurrence of the external cause; I10 Essential (primary) hypertension; E78.5 Hyperlipidemia, unspecified; N40.0 Benign prostatic hyperplasia without lower urinary tract symptoms; Z91.013 Allergy to seafood
CPT/HCPCS: 0241U-QW; 36415; 70450-TC; 71045-TC-FY; 71250-TC; 72125-TC; 73560-TC-LT-FY; 80053; 81003; 83605; 83880; 84484; 85025; 85027; 86803; 87389; 93005; 93010; 94640; 97116-GP; 97161-GP; 99285-25; G0378; J0131